=== PATIENT | male | born 1990 | race Caucasian/White ===

== ENCOUNTER 2017-02-14 19:07 | Emergency (ER) | payer MEDICAID ==
[~2017-02-14] VITALS: Ht 188 cm; Wt 149.7 kg
[~2017-02-14 19:07] MED LIST: ACYCLOVIR200 MG PO; ADIPEX-P37.5 MG PO; AMOXICILLIN/CLA1 TA1 PO; BACTRIM DS 8001 TAB PO; BACTROBAN2% TP; BENZONATATE100 MG PO; CIPRO 500MG TA500 MG PO; CORTISPORIN (GE10 M1 OT; CRESTOR10 MG PO; DARVOCET-N 1001 EACH PO; DOLOBID500 MG OR; FIORINAL #3 CA1 EACH PO; FLEXERIL10 M1 PO; FLEXERIL10 MG PO; HYDROCODONE1 TABLET PO; KEFLEX 500MG.500 MG PO; LIPITOR10 MG PO; LORTAB 5/500 501 TAB PO; MEDROL 4MG. DOSE4 MG PO; MOTRIN600 MG PO; NAPROSYN 500MG500 MG PO; NOMEDS; NOMEDS XX; PHENERGAN 25MG.25 M1 PO; PREDNISONE 10MG10 MG PO; PREDNISONE 20MG20 MG PO; SEPTRA DS 800 M1 TAB PO; TRAMADOL 50MG T50 MG PO; ULTRAM50 MG PO; VALIUM 5MG TABLE5 MG PO; VIBRA-TABS100 MG PO; VIBRAMYCIN 100100 MG PO; VOLTAREN75 MG PO; WEIGHT LOSS MED PO; ZITHROMAX Z PA250 MG PO; ZITHROMAX Z-PA250 M2 PO; ZOCOR20 MG PO; ZOFRAN ODT4 MG PO
--- NOTE | 2017-02-14 19:52 | Emergency Room Report ---
History of Present Illness Time Seen by 1915 Presenting Problem in Triage Pt arrived:Walked Presenting Problem:migraine, nausea Onset of symptoms date/time:/ or onset unknown for:MEDICAL HX UNKNOWN Treatment Prior to Arrival: [facility] DIRECT[facility] Provided by: Sepsis Risk Assessment: Temp: 98 B/P: 162/99 MAP: 120 Pulse: 91 Resp: 20 Recent fever? N Clinical Suspician of Infection? N Mental Status: 1 - Regular (Normal Baseline) Sepsis Risk:Possible Sepsis Risk Have you (or family members/close friends) recently traveled outside the [place]? N If Yes, where/when: Have you had exposure to infectious disease within the past month? TB? Other? Specify: Source patient, RN notes reviewed, family, RN/MD Exam Limitations no limitations Comment This is a 26-year-old male patient arriving to the emergency room with worse headache ever, onset 24 hours ago, associated with photophobia, sonophobia , nausea but no vomiting. Patient has a long history of migraine headaches, however he has never sought medical treatment or medical care for this complaint. Patient's parents have also the strong history of migraine headaches as well. Patient denies any recent travel or exposure to sick contacts. Patient denies any neck pain or neck stiffness. ALLERGIES Coded Allergies: No Known Allergies (02/14/17) History Medical History General CAD? No Angina: Yes CT: No Hypertension? No Hyperlipidemia? Yes CHF? No DVT? No PE? No COPD? No Asthma? No Anemia? No GERD? No Gastric ulcers? No GI Bleed? No Hernia? No Thyroid Problems? No Hypothyroidism? No CVA? No Seizures? No Diabetes? No Renal Insuffiency? No End Stage Renal Disease? No UTI? No Stones? No BPH? No GB Disease: No Nephritic Syndrome? No Asplenia? No Hepatitis? No Sickle Cell Disease? No Arthritis? No Migraines? No Cataracts? No Glaucoma? No MRSA? Yes HIV? No TB? No Anxiety? No Depression? No Cancer? No More? Yes Additional hx: MIGRAINES Immunization Hx DT/Tetanus > 10 YRS Surgical Hx Previous Surgery?Y CYST ON RIGHT NIPPLE ABCESS AT UMBILICUS ANKLE,LEFT SURGERY Family History Family Hx Hyperlipidemia Yes Social History Smoking Hx Smoker: Never Smoker Tobacco: No Alcohol Alcohol: Yes Review of Systems All Other Systems Reviewed and Negative Psychiatric/Neurological headache Physical Exam Vital Signs Vital Signs Date Time Temp Pulse Resp B/P Pulse O2 O2 Flow FiO2 Ox Delivery Rate 02/14 2023 98.0 77 14 142/95 94 02/14 2006 77 14 142/95 94 02/14 2001 20 02/14 192 20 02/14 1911 98.0 91 20 162/99 99 - WBC >12,000 or <4,000 or 10% bands? 2 or more SIRS Criteria Met? B/P:142/95 MAP:120 Creatinine >2.0? UA output<0.5ml/kg/hr for 2 hrs? Platelet count >100,000? Lactate >2.0mmol/1? INR >1.2 or PTT > than 60 sec? Evidence of Organ Dysfunction? Provider documented clinical suspician of infection? N Sepsis Criteria Count: 2 Sepsis Risk: Possible Sepsis Risk General Appearance normal appearance, WD/WN, severe distress Eye Exam - bilateral eye normal exam, bilateral eye PERRL, bilateral eye EOMI Neck normal inspection, non-tender, supple, full range of motion Respiratory Status Yes: trachea midline, chest symmetrical, non tender chest. No: respiratory distress. Lung Sounds bilateral: normal breath sounds, lungs clear. 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 No Comment Patient appears to have all the typical symptoms of a migraine headache. I reevaluation he appears medically stable, clinically improving, in minimal distress. Will discharge patient home on Maxalt, and advised him to follow-up with PCP for further treatment/workup next week. Results/Orders Current Medication Orders Sig/Elda Start time Last Medication Dose Route Stop Time Status Admin Morphine Sulfate 6 MG ONCE ONE 02/15 2000 DC /04 IV 02/14 Morphine Sulfate 0 .STK-MED ONE 02/15 2000 DC .ROUTE Morphine Sulfate 0 .STK-MED ONE 02/14 1959 DC .ROUTE Ketorolac 30 MG ONCE ONE 02/14 1930 DC 05/04 Tromethamine IV 02/14 Ondansetron HCl 4 MG ONCE ONE 02/14 1930 DC 02/14 IV 02/14 Ketorolac 0 .STK-MED ONE 02/15 1916 DC Tromethamine .ROUTE Ondansetron HCl 0 .STK-MED ONE 02/15 1916 DC .ROUTE Orders Procedure Date/time Status DIET-NOTHING BY MOUTH 02/[address] HEAD REQ 02/14 1917 Complete XRAY/CT/US XRAY/CT/US CT head CT interpretation by discussed w/radiologist CT Results no intracranial hemorrhage, per radiologist, see radiologist report Departure Departure Time of Disposition 1950 Disposition DC Home or Self Care(routine) Clinical Impression Primary Impression: Migraine headache Qualifiers: Migraine type: without aura Status migrainosus presence: without status migrainosus Intractability: not intractable Qualified Code: G43.009 - Migraine without aura, not intractable, without status migrainosus Condition STABLE Referrals KATT MCFARLAND (Family): 5 Days-Call Office Patient Instructions DI for Migraine Additional Instructions Please follow-up with Katt Mcfarland if no better within 5-7 days. Use the migraine medications (Maxalt) as discussed, for any future migraine episodes. Take one immediately after the onset of migraine, if not better, may repeat dose in 2 hours. Discharge Counseling Counseled pt/family regarding diagnosis, test results, medications/RX, home care, follow up needs Comment Please follow-up with Katt Mcfarland if no better within 5-7 days. Use the migraine medications (Maxalt) as discussed, for any future migraine episodes. Take one immediately after the onset of migraine, if not better, may repeat dose in 2 hours. Prescriptions Current Visit Scripts Rizatriptan Benzoate (Maxalt Web Content Manager) 10 MG PO PRN PRN headache #20 ODT Ref 1 ED Critical Care Critical Care No at 0107
[2017-02-14] MEDS ORDERED: MAXALT-MLT10 MG PO (20:16)
--- OUTSIDE RECORDS SUMMARY | 2017-02-14 20:19 | External Medical Summary Rpt ---
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 SEVERITY [facility]OSP[facility] - 6 6 [facility] OUTPATIEN [facility] EMERGENCY 29098 [facility] 5 CASSIUS BRU DEPARTMEN EMERGENCY T VISIT PHYS HIGH/URGE NT SEVERITY [facility]OSP[facility] - 5 5 [facility] OUTPATIEN MEDICAL T CENTE EMERGENCY 39258 [facility] 5 5 [facility]AL DEPARTMEN MEDICAL T VISIT CENTE MODERATE SEVERITY EMERGENCY 59138 [facility] 5 5 CASSIUS BRU DEPARTMEN EMERGENCY T VISIT PHYS MODERATE SEVERITY HOSPITAL [facility] - 5 5 [facility] OUTPATIEN MEDICAL T CENTE EMERGENCY 08862 [facility] 5 5 [facility]IONAL DEPARTMEN MEDICAL T VISIT CENTE HIGH/URGE NT SEVERITY OFFICE 48789 [facility] 5 5 TOM T VISIT PEDIATRIC 15 S & INTER MINUTES EMERGENCY 77733 [facility] 5 5 [facility] T VISIT MODERATE SEVERITY EMERGENCY 86607 [place] 5 5 [facility] T VISIT LOW/MODER SEVERITY HOSPITAL [place] - 5 5 [facility] OUT[facility]EN [facility] [place] - 5 5 [facility] [place] - 5 5 [facility] T OFFICE 24015 [facility] 5 5 AND T NEW 30 PEDIATRIC MINUTES S & INTER HOSPITAL [facility] - 4 4 [facility] EMERGENCY 83758 [facility] 4 4 [facility] T VISIT LOW/MODER SEVERITY EMERGENCY 74734 [place] ROA 4 4 [facility] T VISIT P MODERATE SEVERITY EMERGENCY 69606 [place] STEPHENSON 4 4 [facility] T VISIT P LOW/MODER SEVERITY EMERGENCY 92512 [place] 4 4 [facility] T [facility]ISIT LIMITED/M INOR PROB HOSPITAL [place] - 4 4 [facility] EMERGENCY 33401 [place] 4 4 [facility] T VISIT LOW/MODER SEVERITY HOSPITAL [facility] - 4 4 [facility] OUTPATIEN [facility] [place] - 4 4 [facility] EMERGENCY 98799 [place] RUTLEDGE 4 4 [facility] T VISIT P LOW/MODER SEVERITY EMERGENCY 30849 [place] 4 4 [facility] T VISIT MODERATE SEVERITY EMERGENCY 85760 [place] DARBY 4 4 [facility] T VISIT P LOW/MODER SEVERITY [facility]OSPITAL [place] Clifton 4 4 [facility] T Emergency SLY HARMON DO (ER) 4 17:31 4 18:23 [facility] EMERGENCY 43631 FAUSTINO BETSY FAUSTINO BETSY 4 4 DEPARTMEN T VISIT HIGH/URGE NT SEVERITY Emergency SLY LOPEZ MD (ER) 3 16:30 3 16:59 [facility] EMERGENCY 80483 [place] 3 3 [facility] DEPARTMEN INC T VISIT LIMITED/M INOR PROB HOSPITAL [place] - 3 3 [facility] OUTPATIEN INC T EMERGENCY 73831 JESSICA LOPEZ 3 3 [facility] T VISIT HIGH/URGE NT SEVERITY OFFICE 32801 [facility] T VISIT 25 MINUTES Emergency SLY Grajeda MD (ER) 3 19:34 3 20:56 [facility] EMERGENCY 30220 TARAS ZAMORA 3 3 DEPARTMEN T VISIT HIGH/URGE NT SEVERITY HOSPITAL [place] - 3 3 [facility] OUTPATIEN INC T Emergency SLY Barrera MD (ER) 3 22:48 3 23:37 [facility] [place] - 3 3 [facility] OUTPATIEN INC T EMERGENCY 87436 [place] 3 3 [facility] DEPARTMEN INC T VISIT LIMITED/M INOR PROB EMERGENCY 22435 SYLWIA BARRERA [address] [facility] DEPARTMEN T VISIT MODERATE SEVERITY Emergency SLY FOURNIER (ER) 3 16:06 3 16:24 [facility] EMERGENCY 64134 [place] 3 3 [facility] DEPARTMEN INC T VISIT LIMITED/M INOR PROB EMERGENCY 66633 ALFARIS ALFARIS 3 3 [facility] DEPARTMEN T VISIT MODERATE SEVERITY HOSPITAL [place] - 3 3 [facility] OUTPATIEN INC T Emergency SLY Koehler (ER) 3 15:25 3 16:59 [facility] Mukul Aiken EMERGENCY 03665 DIRK KOEHLER 3 3 [facility] DEPARTMEN T VISIT HIGH/URGE NT SEVERITY EMERGENCY 21012 [place] 3 3 [facility] DEPARTMEN INC T VISIT LOW/MODER SEVERITY [facility]OSPITAL [place] - 3 3 [facility] OUTPATIEN INC T OFFICE 01477 DESTINY DIXON OUTPATIEN 3 3 CHARLENE CHARLENE T VISIT 15 MINUTES OFFICE 68063 REED BONNIE REED BONNIE OUTPATIEN 3 3 T VISIT 15 MINUTES Emergency SLY Carson MD (ER) 3 15:56 3 16:09 [facility] EMERGENCY 94582 TIFFANY RUDD 3 3 EMERGENCY DEPARTMEN SERVICES T VISIT MODERATE SEVERITY HOSPITAL [place] - 3 3 [facility] OUTPATIEN INC T EMERGENCY 74677 [place] 3 3 [facility] DEPARTMEN INC T VISIT LIMITED/M INOR PROB Emergency SLY Barrera MD (ER) 3 18:18 3 19:21 [facility] [place] - 3 3 [facility] OUTPATIEN INC T EMERGENCY 36247 [place] 3 3 [facility] DEPARTMEN INC T VISIT LOW/MODER SEVERITY EMERGENCY 98126 SYLWIA BARRERA 3 3 [facility] DEPARTMEN T VISIT MODERATE SEVERITY HOSPITAL [place] - 3 3 [facility] OUTPATIEN INC T OFFICE 98100 REED BONNIE REED BONNIE CONSULTAT 3 3 ION NEW/ESTAB PATIENT 60 MIN OFFICE 76714 DESTINY IZAGUIRRE 3 3 CHARLENE CHARLENE T VISIT 15 MINUTES Emergency SLY [place] Carson MD (ER) 3 18:41 3 19:24 [facility] [place] - 3 3 [facility] OUTPATIEN INC T EMERGENCY 17357 [place] 3 3 [facility] DEPARTMEN INC T VISIT LOW/MODER SEVERITY OFFICE 15391 PETTEY PETTEY OUTPATIEN 3 3 JAM JAM T VISIT 15 MINUTES EMERGENCY 16015 TIFFANY RUDD 3 3 EMERGENCY DEPARTMEN SERVICES T VISIT MODERATE SEVERITY [facility] [place] - 3 3 [facility] OUTPATI[facility] INC T OFFICE 23234 PETTEY PETTEY OUTPATIEN 3 3 JAM JAM T NEW 30 MINUTES HOSPITAL [place] - 3 3 [facility] OUTPATIEN INC T OFFICE 69422 DESTINY DESTINY MARTINEZEN 3 3 CHARLENE CHARLENE T VISIT 15 MINUTES OFFICE 60120 DESTINY SANDERSEUGENIA OUTPATIEN 3 3 CHARLENE CHARLENE T NEW 30 MINUTES OFFICE 87598 SANDRA FLORES JR OUTPATIEN 2 2 KIMANI KIMANI T VISIT 10 MINUTES HOSPITAL [facility] - 2 2 [facility] OUTPATIEN INC T OFFICE 54417 SANDRA FLORES JR OUTPATIEN 2 2 KIMANI KIMANI T NEW 20 MINUTES HOSPITAL [place] - 2 2 [facility] OUTPATIEN INC T EMERGENCY 40051 TIFFANY BARRERA 2 2 EMERGENCY [facility] DEPARTMEN SERVICES T VISIT HIGH/URGE NT SEVERITY EMERGENCY 44684 [place] 2 2 [facility] DEPARTMEN INC T VISIT MODERATE SEVERITY EMERGENCY 16491 [place] 2 2 [facility] DEPARTMEN INC T VISIT MODERATE SEVERITY [facility] [place] - 2 2 [facility] OUTPATIEN INC T EMERGENCY 01566 [place] 2 2 [facility] DEPARTMEN INC T VISIT MODERATE SEVERITY [facility] [place] - 2 2 [facility] OUTPATIEN INC T HOSPITAL [place] - 2 2 [facility] OUTPATIEN INC T EMERGENCY 56732 [place] 2 2 [facility] DEPARTMEN INC T VISIT HIGH/URGE NT SEVERITY EMERGENCY 55241 TIFFANY BARRERA DEPT 2 2 EMERGENCY [facility] VISIT SERVICES HIGH SEVERITY& THREAT FUN EMERGENCY 55456 [place] 2 2 [facility] SE[facility]ITY [facility] [place] - 2 2 [facility] OUTPATIEN INC T EMERGENCY 92654 TIFFANY KOEHLER 2 2 EMERGENCY III [facility] SERVICES T VISIT HIGH/URGE NT SEVERITY [facility]OSPITAL [place] - 2 2 [facility] OUTPATIEN INC T EMERGENCY 23546 [place] 2 2 [facility] HIGH/URGE NT SEVERITY [facility] [place] - 2 2 [facility] OUTPATIEN INC T EMERGENCY 88729 [place] 2 2 [facility] VISIT MODERATE SEVERITY EMERGENCY 73512 TIFFANY RUDD 2 2 EMERGENCY DEPARTMEN SERVICES T VISIT HIGH/URGE NT SEVERITY HOSPITAL [place] - 2 2 [facility] OUTPATIEN INC T EMERGENCY 52257 [place] 2 2 [facility] DEPARTMEN INC T VISIT LOW/MODER SEVERITY [facility]PITAL [place] - 2 2 [facility] OUTPATIEN INC T EMERGENCY 16378 [place] 2 2 [facility] DEPARTMEN INC T VISIT LOW/MODER SEVERITY EMERGENCY 93960 [place] 1 1 [facility] DEPARTMEN INC T VISIT HIGH/URGE NT SEVERITY [facility]PITAL [place] - 1 1 [facility] [place] - 1 1 [facility] 93750 [place] 1 1 [facility] VISIT MODERATE SEVERITY OFFICE 67215 SHALA LAST OUTPATIEN 8 8 DON R DON R T VISIT 15 MINUTES HOSPITAL [place] - 8 8 [facility] 92940 SHALA LAST OUTPATIEN 8 8 DON R DON R T VISIT 15 MINUTES
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
--- OUTSIDE RECORDS SUMMARY | 2017-02-14 20:22 | External Medical Summary Rpt ---
Author Author , Organization [employer] Address Unknown Phone Unavailable Care Team Providers Care Bellhop Service Captain Name Role Phone ALFARIS MOH, ALFARIS Unavailable Unavailable MOH ALFARIS MOH, ALFARIS Unavailable Unavailable MOH ARNOLD CHARLENE, ARNOLD Unavailable Unavailable CHARLENE ARNOLD CHARLENE, ARNOLD Unavailable Unavailable CHARLENE [facility], Unavailable Unavailable [facility] LOPEZ BRO, LOPEZ Unavailable Unavailable BRO LOPEZ BRO, LOPEZ Unavailable Unavailable BRO BEINEKE JAIME, BEINEKE Unavailable Unavailable JAIME [facility] Unavailable Unavailable & INTER, [facility] INTER CRISPIN CARPENTER REPAIRER, CRISPIN Unavailable Unavailable CARPENTER REPAIRER [facility] Unavailable Unavailable MEDICAL CENTE, [facility] SANDRA JR KIMANI, SANDRA Unavailable Unavailable JR KIMANI SANDRA JR KIMANI, SANDRA Unavailable Unavailable JR KIMANI MARGARITO DUSTY, Unavailable Unavailable MARGARITO DUSTY MARGARITO DUSTY, Unavailable Unavailable MARGARITO DUSTY MARGARITO, DEEPIKA, Unavailable Unavailable MARGARITO, DEEPIKA DARBY MAT, DARBY Unavailable Unavailable [facility] Un[facility] Un[facility] Unavailable [facility]available [facility] Un[facility] P, [facility] SYLWIA CIARAN, SYLWIA Unavailable Unavailable CIARAN SYLWIA CIARAN, SYLWIA Unavailable Unavailable CIARAN [facility] Unavailable Unavailable INC, [facility] Un[facility]OSPITAL P, [facility] Unavailable Unavailable IMAGING [facility], [facility] MILLS TOM, MILLS Unavailable Unavailable TOM [facility]OSTEL[facility]K BR[facility], Unavailable Unavailable [facility] Un[facility], [facility] SEEMA ARIC, SEEMA Unavailable Unavailable ARIC [facility] Unavailable Unavailable SERVICES, [facility] AAMIR LAMBERT, AAMIR Unavailable Unavailable [...] Unavailable Unavailable [facility], [facility], DON R, Unavailable Unavailable LAST DON R DIRK III KIMANI, Unavailable Unavailable DIRK III KIMNAI ZAMORA, TARAS ZAMORA Unavailable Unavailable TARAS ZAMORA, TARAS ZAMORA Unavailable Unavailable Purpose Continuity of Care Document - 11-21-2007 through 2016 Problems Code Diagnosis DOS Provider Status [id number] MIGRAINE 12-06-2016 [facility] W/[facility] NOT INTRACT INC W/O STAT MIGRAIN [id number] REGULAR 11-09-2016 [facility] ASTIGMATISM BILATERAL E780 PURE 05-18-2016 [facility] [id number] MIGRAINE 05-18-2016 [facility] UNS NOT REGIONAL INTRACT W/O MEDICAL STATUS CENTE MIGRAINOSUS R51 HEADACHE 05-18-2016 [facility] R109 UNSPECIFIED 11-03-2015 [facility] ABDOMINAL RADIOLOGY PAIN GROUP P R112 NAUSEA WITH 11-03-2015 [facility] VOMITING RADIOLOGY UNSPECIFIED GROUP P R1030 LOWER 11-02-2015 [facility] ABDOMINAL N EMERGENCY PAIN PHYS UNSPECIFIED R197 DIARRHEA 11-02-2015 [facility] UNSPECIFIED N EMERGENCY PHYS J0190 ACUTE 10-07-2015 [facility] SINUSITIS N EMERGENCY UNSPECIFIED PHYS F48334 CELLULITIS 08-13-2015 [facility] OF LEFT N EMERGENCY FINGER PHYS 4558 UNSPECIFIED 04-19-2015 [facility] HEMORRHOIDS & INTER WITH OTHER COMPLICATIO N 4139 OTHER AND 03-26-2015 [facility] UNSPECIFIED [facility] ANGINA INC PECTORIS 4660 ACUTE 03-26-2015 CINDY BRONCHITIS PHYSICIANS, [facility] 24143 SHORTNESS 03-26-2015 [facility] 27148 CHEST PAIN 03-10-2015 PA MEDICAL UNSPECIFIED SERV [facility] 88821 PRECORDIAL 03-10-2015 [facility] PAIN [facility] INC V1749 FAMILY 03-10-2015 [facility] HISTORY OF [facility] OTHER INC CARDIOVASCU LAR DISEASES V7791 SCREENING 02-09-2015 [facility] FOR LIPOID [facility] DISORDERS INC V259 UNSPECIFIED 02-04-2015 [facility] CONTRACEPTI & INTER VE MANAGEMENT 5589 OTH&UNSPEC 10-02-2014 [facility] NONINFECTIO [facility] P GASTROENTER ITIS&COLITI S 6084 OTHER 10-02-2014 [facility] INFLAMMATOR [facility] Y DISORDER INC MALE GENITAL ORGANS 67634 PAIN IN 09-28-2014 [facility] JOINT, MEDICAL UPPER ARM IMAGING ASS 39937 OTHER 09-28-2014 [facility] [place]NOVIT[place] [address] HORDEOLUM 09-19-2014 [facility] EXTERNUM [facility] INC V642 SURG/OTH 09-19-2014 [facility] PROC NOT [facility] CARRIED OUT INC BECAUSE PTS DECN 2724 OTHER AND 09-17-2014 [facility] UNSPECIFIED [facility] P HYPERLIPIDE SAVANNAH 04663 MIGRAINE 09-17-2014 [facility] UNSP W/O [facility] INTRACT W/O [facility] P STATUS MIGRAINOSUS 7248 OTHER 11-28-2013 MARGARITO SYMPTOMS DUSTY REFERABLE TO BACK 8472 LUMBAR 11-28-2013 FAUSTINO BETSY SPRAIN AND STRAIN E8859 FALL FROM 11-28-2013 FAUSTINO BETSY OTHER SLIPPING TRIPPING OR STUMBLING E8889 UNSPECIFIED 11-28-2013 M[facility] FALL DUSTY 58573 GENERALIZED 10-08-2013 M[facility]O PAIN DUSTY 92748 CONTUSION 10-08-2013 [facility] OF FOREARM [facility] INC 9239 CONTUSION 10-08-2013 LOPEZ BRO OF UNSPECIFIED PART OF UPPER LIMB 6822 CELLULITIS 06-09-2013 WELLS SERA AND ABSCESS OF TRUNK V1204 PERSONAL HX 06-09-2013 [facility] OF [facility] METHICILLIN INC RESIST STAPH AUREUS 4618 OTHER ACUTE 06-06-2013 [facility] CIARAN SINUSITIS 4619 ACUTE 06-06-2013 [facility] SINUSITIS, [facility] UNSPECIFIED INC 55528 CONTUSION 05-29-2013 ALFARIS MOH OF BACK 7242 LUMBAGO 05-28-2013 MARGARITO DUSTY 03509 OBESITY, 05-12-2013 DESTINY CHANG UNSPECIFIED 84378 VARIANTS 05-12-2013 DESTINY CHANG MIGRAINE NEC INTRACT MIGRAINE W/[place] [address] OSTEOARTHRO 05-12-2013 DESTINY CHANG S INVLV MX SITES BUT NOT SPEC GEN 5718 OTHER 05-11-2013 REED BONNIE CHRONIC NONALCOHOLI C LIVER DISEASE 7905 OTHER 05-11-2013 REED BONNIE NONSPECIFIC ABNORMAL SERUM ENZYME LEVELS 34819 UNSPECIFIED 04-30-2013 [facility] ANKLE SERVICES SPRAIN AND STRAIN V5869 LONG-TERM 04-30-2013 [facility] (CURRENT) [facility] USE OF INC OTHER MEDICATIONS 14107 PAIN IN 04-25-2013 MARGARITO JOINT, DUSTY ANKLE AND FOOT 9597 INJURY 04-25-2013 MARGARITO OTHER&UNSPE DUSTY CIFIED KNEE LEG ANKLE&FOOT 7948 NONSPECIFIC 04-22-2013 [facility] ABNORMAL [facility] RESULTS INC LIVR FUNCTION STUDY 27011 PAIN IN 02-10-2013 MARGARITO JOINT, HAND DUSTY 7262 OTHER 02-10-2013 PETTEY JAM AFFECTIONS OF SHOULDER REGION NEC 8409 SPRAIN&STRA 02-10-2013 PETTEY JAM IN UNSPEC SITE SHOULDER&UP PER ARM 01050 SPRAIN AND 02-10-2013 [facility] STRAIN OF UNSPECIFIED SITE OF WRIST 41068 CONTUSION 02-10-2013 [facility] OF HAND [facility]ERGENCY SERVICES 9599 INJURY 02-10-2013 MARGARITO OTHER AND DUSTY UNSPECIFIED UNSPECIFIED SITE 2512 HYPOGLYCEMI 01-26-2013 [facility] A, [facility] UNSPECIFIED INC 51565 OTHER 01-26-2013 [facility] MALAISE AND [facility] FATIGUE INC 34608 PAIN IN 01-13-2013 [facility] JOINT, [facility] SHOULDER INC REGION 7273 OTHER 11-06-2012 DESTINY CHANG BURSITIS DISORDERS 6089 UNSPECIFIED 09-25-2012 SANDRA CARRINGTON DISORDER KIMANI OF MALE GENITAL ORGANS V720 EXAMINATION 09-11-2012 SCIFRES ANG OF EYES AND VISION 5110 PLEURISY 06-30-2012 [facility] WITHOUT EMERGENCY MENTION SERVICES EFFUS/[place] [address] UNSPECIFIED 06-23-2012 [facility] CELLULITIS [facility]ERGENCY AND SERVICES ABSCESS OF FINGER 88909 ONYCHIA AND 06-23-2012 [facility] PARONYCHIA [facility] OF FINGER INC 96424 ASTHMA, 03-28-2012 [facility] UNSPECIFIED [facility] , INC UNSPECIFIED STATUS 56839 ABDOMINAL 03-20-2012 [facility] PAIN RIGHT EMERGENCY UPPER SERVICES QUADRANT 64359 ABDOMINAL 03-20-2012 [facility] PAIN, [facility] EPIGASTRIC INC 4019 UNSPECIFIED 03-10-2012 [facility] ESSENTIAL EMERGENCY HYPERTENSIO SERVICES N 7962 ELEVATED BP 03-10-2012 [facility] READING [facility] WITHOUT DX INC HYPERTENSIO N 486 PNEUMONIA, 01-22-2012 [facility] ORGANISM EMERGENCY UNSPECIFIED SERVICES 6826 CELLULITIS 10-17-2011 [facility] AND ABSCESS [facility] OF LEG INC EXCEPT FOOT 8500 CONCUSSION 10-16-2011 [facility] WITH [place] [address] HEAD 10-16-2011 [facility] INJURY, MEDICAL UNSPECIFIED IMAGING ASS 11218 NAUSEA WITH 08-14-2011 [facility] 98720 ABDOMINAL 08-14-2011 [facility] PAIN, MEDICAL UNSPECIFIED IMAGING ASS SITE 7048 OTHER 12-12-2007 LAST, SPECIFIED DON R DISEASE OF HAIR&HAIR FOLLICLES 06237 OTHER CHEST 12-12-2007 LAST, PAIN DON R Procedures Procedure DOS Code Location Performer Comment THERAPEUT 87017 [facility] VARNER IC 7 [facility] PROPHYLAC INC INC TIC/DX INJECTION SUBQ/IM OPHTH 84660 SCIFRES SCIFRES MEDICAL 7 XM&EVAL COMPRHNSV ESTAB PT 1/> THERAPEUT 62921 [facility] ORDOÑEZ IC 6 [facility]AL REGIONAL PROPHYLAC MEDICAL MEDICAL TIC/DX CENTE CENTE INJECTION SUBQ/IM INJECTION J1885 [facility] ORDOÑEZ 6 REGIONAL REGIONAL KETOROLAC MEDICAL MEDICAL CENTE CENTE TROMETHAM INE PER 15 MG INJECTION J1885 [facility] ORDOÑEZ 6 REGIONAL REGIONAL KETOROLAC MEDICAL MEDICAL CENTE CENTE TROMETHAM INE PER 15 MG THER 02014 [facility] ORDOÑEZ PROPH/DX 6 REGIONAL REGIONAL NJX IV MEDICAL MEDICAL PUSH CENTE CENTE SINGLE/1S T SBST/DRUG THERAPEUT 03585 [facility] ORDOÑEZ IC 6 REGIONAL REGIONAL INJECTION MEDICAL MEDICAL IV PUSH CENTE CENTE EACH NEW DRUG INJECTION J2765 [facility] ORDOÑEZ 6 REGIONAL REGIONAL METOCLOPR MEDICAL MEDICAL AMIDE HCL CENTE CENTE UP TO 10 MG RADEX ABD 10769 [facility] [place] EUG COMPL 6 N AQT ABD RADIOLOGY W/S/E/D GROUP P VIEWS 1 VIEW BASIC 37974 [facility] ORDOÑEZ METABOLIC 6 REGIONAL REGIONAL PANEL MEDICAL MEDICAL CALCIUM CENTE CENTE TOTAL RADEX ABD 75066 [facility] ORDOÑEZ COMPL 6 REGIONAL REGIONAL AQT ABD MEDICAL MEDICAL W/S/E/D CENTE CENTE VIEWS 1 VIEW BLOOD 76567 [facility] ORDOÑEZ COUNT 6 REGIONAL REGIONAL COMPLETE MEDICAL MEDICAL AUTO&AUTO CENTE CENTE DIFRNTL WBC COLLECTIO 97285 [facility] ORDOÑEZ N VENOUS 6 REGIONAL REGIONAL BLOOD MEDICAL MEDICAL VENIPUNCT CHARLENE CHANG URE RADEX 89377 [facility] ORDOÑEZ HAND 5 REGIONAL REGIONAL MINIMUM 3 MEDICAL MEDICAL VIEWS CHARLENE CHANG INCISION 95143 [facility] BRU DRAINAGE EMERGENCY ABSCESS PHYS SIMPLE/SI NGLE RADIOLOGI 80652 [facility] Khalil EXAM 5 [facility] CHEST 2 INC INC VIEWS FRONTAL&L ATERAL THERAPEUT 61212 [facility] VARNER IC 5 [facility] PROPHYLAC INC INC TIC/DX INJECTION SUBQ/IM ECHO 82280 [facility] VARNER TTHRC R-T 5 [facility] 2D INC INC W/WOM-MOD E COMPL SPEC&COLR D LIPID 46558 [facility]ER PANEL 5 [facility] INC INC BLOOD 22101 [facility] COUNT 5 [facility] COMPLETE INC INC AUTO&AUTO DIFRNTL WBC COLLECTIO 76186 [facility]ARNER N VENOUS 5 [facility] BLOOD INC INC VENIPUNCT URE COMPREHEN 71130 [facility] V[facility] SIVE 5 [facility] METABOLIC INC INC PANEL ECG 05078 [facility] R[facility]INE 5 ECG PEDIATRIC PEDIATRIC W/LEAST S & INTER S & INTER 12 LDS W/I&R COMPREHEN 32848 [facility] SIVE 4 [facility] [place] [address] [facility] INFUSION 4 [facility] THERAPY/P INC INC ROPHYLAXI S /DX 1ST TO 1 HR BLOOD 07572 [facility] COUNT 4 [facility] COMPLETE INC INC AUTO&AUTO DIFRNTL WBC THERAPEUT 16086 [facility] V[facility] IC 4 [facility] INJECTION INC INC IV PUSH EACH NEW DRUG RADEX 68857 [facility] BEINEKE ELBOW 4 MEDICAL JAIME COMPLETE IMAGING MINIMUM 3 ASS VIEWS RADEX 98299 MARGAR[facility]O MARGARITO SPINE 4 DUSTY DUSTY LUMBOSACR AL 2/3 VIEWS RADEX 32609 [facility] ELBOW 3 [facility] COMPLETE INC INC MINIMUM 3 VIEWS RADEX 64502 M[facility]O MARGARITO WRIST 2 3 DUSTY DUSTY VIEWS RADEX 41783 [facility] MARGARITO ELBOW 2 3 DUSTY DUSTY VIEWS RADEX 71249 [facility] V[facility] FOREARM 2 3 [facility] VIEWS INC INC RADEX 12399 [facility] WRIST 3 [facility] COMPLETE INC INC MINIMUM 3 VIEWS INCISION 11717 WELLS SERA GRAJEDA SERA & 3 DRAINAGE ABSCESS COMPLICAT ED/MULTIP LE RADEX 84027 MARGARITO MARGARITO SPINE 3 DUSTY DUSTY LUMBOSACR AL 2/3 VIEWS RADEX 26180 [facility] SPINE 3 [facility] LUMBOSACR INC INC AL MINIMUM 4 VIEWS RADEX 02733 [facility] ANKLE 3 [facility] COMPLETE INC INC MINIMUM 3 VIEWS CERULOPLA 82819 [facility] SMIN 3 [place] [address] [facility] V[facility] IRON 3 [facility] INC INC HEPATITIS 28595 [facility] B CORE 3 [facility] [place] [address] [facility] HEPATITIS 3 [facility] B INC INC SURFACE ANTIGEN ALPHA-1-A 13451 [facility] NTITRYPSI 3 [facility] N INC INC PHENOTYPE IRON 99302 [facility] BINDING 3 [facility] CAPACITY INC INC FLUORESCE 30260 [facility] NT 3 [facility] NONNFCT INC INC AGT ANTB TITER EA ANTIBODY HEPATITIS 87680 [facility] C 3 [place] [address] [facility] ABDOMINAL 3 [facility] REAL INC INC TIME W/IMAGE DOCUMENTA TION GENERAL 47883 [facility] HEALTH 3 [facility] PANEL INC INC ANTINUCLE 79637 [facility] AR 3 [facility] ANTIBODIE INC INC S KASSY WRIST L3908 [facility] HAND 3 ORTHOSIS EXT CONTROL COCK-UP PREFAB RADEX 31330 MARGAR[facility]O PIMENTEL HAND 3 DUSTY DUSTY MINIMUM 3 [place] [address] [facility] INSULIN 3 [facility] TOTAL INC INC BILIRUBIN 88206 [facility] DIRECT 3 [facility] INC INC SEDIMENTA 59004 [facility] TION RATE 3 [facility] RBC INC INC NON-AUTOM ATED LIPID 88776 [facility] VANRER PANEL 3 [facility] INC INC HEMOGLOBI 18018 [facility] N 3 [facility] GLYCOSYLA INC INC CHIVO A1C THYROID 56233 [facility] HORM 3 [facility] UPTK/THYR INC INC OID HORMONE BINDING RATIO GENERAL 65701 [facility] HEALTH 3 [facility] [place] [address] [facility] THYROXINE 3 [facility] TOTAL INC INC RADEX 37693 [facility] SHOULDER 3 [facility] COMPLETE INC INC MINIMUM [address] [place] [address] [facility] MARGARITO SCROTUM & 2 MEDICAL DUSTY CONTENTS IMAGING ASS DETERMINA 54232 SCIFRES SCIFRES TION 2 ANG ANG REFRACTIV E STATE OPHTH 37006 SCIFRES SCIFRES MEDICAL 2 ANG ANG XM&EVAL COMPRHNSV ESTAB PT 1/> URNLS DIP 85337 SANDRA FOLRES JR 2 KIMANI KIMANI STICK/TAB LET RGNT NON-AUTO W/O MICRSCP RADIOLOGI 97080 [facility] C EXAM 2 [facility] CHEST 2 INC INC VIEWS FRONTAL&L ATERAL IAADI 40576 [facility] INFLUENZA 2 [facility] B VIRUS INC INC IAADI 88454 [facility] SHEETSON INFFLUENZ 2 [facility] A A VIRUS INC INC INCISION 04861 TIFFANY DAO & 2 EMERGENCY CIARAN DRAINAGE SERVICES ABSCESS COMPLICAT ED/MULTIP LE SUSCEPTIB 15748 [facility] LTY STDY 2 [facility] ANTIMICRB INC INC IAL MICRO/AGA R DILUTJ CUL BACT 01474 [facility] XCPT 2 [facility] URINE INC INC BLOOD/STO OL AEROBIC ISOL CUL BACT 40836 [facility] AEROBIC 2 [facility] ADDL INC INC METHS DEFINITIV E EA ISOL RADIOLOGI 04832 [facility] C EXAM 2 [facility] CHEST 2 INC INC VIEWS FRONTAL&L ATERAL PRESSURIZ 10404 [facility] VARNER ED/NONPRE 2 [facility] SSURIZED [place] [address] [facility] [facility] INFUSION 2 [facility] THERAPY/P INC INC ROPHYLAXI S /DX 1ST TO 1 HR BLOOD 22229 [facility] COUNT 2 [facility] COMPLETE INC INC AUTO&[place] [address] [facility] LIPASE 2 [facility] INC INC INJECTION J2405 [facility]ARNER 2 [facility] ONDANSETR INC INC ON HCL PER 1 MG COMPREHEN 40832 [facility] SIVE 2 [facility] [address] [facility] AMYLASE 2 [facility] INC INC INCISION 99168 TIFFANY CAVAZOS & 2 EMERGENCY III KIMANI DRAINAGE SERVICES ABSCESS COMPLICAT ED/[place] [address] [facility] VARNER INFUSION 2 [facility] THERAPY INC INC PROPHYLAX IS/[place] [address] [facility]ER INFUSION 2 [facility] THERAPY/P INC INC ROPHYLAXI S /DX 1ST TO 1 HR BLOOD 29153 [facility] COUNT 2 [facility] COMPLETE INC INC AUTO&AUTO DIFRNTL WBC RADIOLOGI 93660 [facility] C EXAM 2 [facility] CHEST 2 INC INC VIEWS FRONTAL&L ATERAL IAADI 04049 [facility]ER INFFLUENZ 2 [facility] A A VIRUS INC INC IAADI 37423 [facility] INFLUENZA 2 [place] [address] [facility] V[facility] INFUSION 2 [facility] THER INC INC PROPH ADDL SEQUENTIA L TO 1 HR COMPREHEN 62408 [facility] VARNER SIVE 2 [facility] METABOLIC INC INC PANEL THERAPEUT 67884 [facility] IC 2 [facility] PROPHYLAC INC INC TIC/DX INJECTION SUBQ/IM 3D 88522 [facility] RENDERING 2 [facility] W/INTERP INC INC & [place] [address] [facility] HEAD/BRAI 2 [facility] N [place] [address] [facility] V[facility] INFUSION 1 [facility] THERAPY/P INC INC ROPHYLAXI S /DX 1ST TO 1 HR THERAPEUT 80873 [facility] IC 1 [facility] INJECTION INC INC IV PUSH EACH NEW DRUG THER 43710 [facility] PROPH/DX 1 [facility] NJX IV INC INC PUSH SINGLE/1S T SBST/DRUG THERAPEUT 63487 [facility] IC 1 [facility] INJECTION [place] [address] [facility] ABDOMEN & 1 [facility] PELVIS INC INC W/O CONTRAST MATERIAL URNLS DIP 36771 [facility] 1 [facility] STICK/TAB INC INC LET REAGENT AUTO MICROSCOP Y BLOOD 06767 [facility] COUNT 1 [facility] COMPLETE INC INC AUTO&AUTO DIFRNTL WBC 3D 16444 [facility] RENDERING 1 [facility] INC INC W/INTERP& POSTPROC DIFF WORK STATION COMPREHEN 14496 [facility] V[facility] SIVE 1 [facility] METABOLIC INC INC PANEL RADEX 13224 NETTIE MARGARITO, UPPER GI 8 MEDICAL DEEPIKA W/WO IMAGING GLUCAGON/ ASSOCIATE DELAY S IMAGES W/KUB Encounters Encounter Start End Date Code Location Performer Type Date [facility]OSPITAL [facility] T VISIT INC [address] [address] [facility] DEPARTMEN EMERGENCY T VISIT PHYS HIGH/URGE NT SEVERITY HOSPITAL [facility] - 6 6 REGIONAL OUTPATIEN MEDICAL T CENTE EMERGENCY 38589 [facility] 6 6 REGIONAL DEPARTMEN MEDICAL T VISIT CENTE MODERATE SEVERITY EMERGENCY 13965 [facility] IS[facility] 6 6 CASSIUS JEA DEPARTMEN EMERGENCY T VISIT PHYS HIGH/URGE NT SEVERITY EMERGENCY 67695 [facility] 6 6 REGIONAL DEPARTMEN MEDICAL T VISIT CENTE MODERATE SEVERITY HOSPITAL [facility] - 6 6 REGIONAL OUTPATIEN MEDICAL T CENTE EMERGENCY 82014 [facility] 6 6 REGIONAL DEPARTMEN MEDICAL T VISIT CENTE MODERATE SEVERITY EMERGENCY 08375 [facility] BETSY 6 6 CASSIUS DEPARTMEN EMERGENCY T VISIT PHYS HIGH/URGE NT SEVERITY HOSPITAL [facility] - 6 6 [facility]AL OUTPAT[facility]EN [facility]ICAL [facility] - 5 5 REGIONAL OUTPATIEN MEDICAL T CENTE EMERGENCY 93626 [facility] 5 5 REGIONAL DEPARTMEN MEDICAL T VISIT CENTE MODERATE SEVERITY EMERGENCY 85914 [facility] 5 5 CASSIUS BRU DEPARTMEN EMERGENCY T VISIT PHYS HIGH/URGE NT SEVERITY EMERGENCY 48901 [facility] 5 5 CASSIUS BRU DEPARTMEN EMERGENCY T VISIT PHYS MODERATE SEVERITY EMERGENCY 19266 [facility] 5 5 REGIONAL DEPARTMEN MEDICAL T VISIT CENTE HIGH/URGE NT SEVERITY HOSPITAL [facility] - 5 5 REGIONAL OUTPATIEN MEDICAL T CENTE OFFICE 05916 [facility] 5 5 TOM T VISIT PEDIATRIC 15 S & INTER MINUTES EMERGENCY 19484 [facility] 5 5 [facility] T VISIT LOW/MODER SEVERITY EMERGENCY 77877 CINDY DUNHAM [facility] 5 5 [facility] T VISIT MODERATE SEVERITY HOSPITAL [facility] - 5 5 [facility] OUTPATIEN [facility] - 5 5 [facility] - 5 5 [facility] OUTPATIEN INC T OFFICE 94561 [facility] 5 5 AND T NEW 30 PEDIATRIC MINUTES S & INTER HOSPITAL [facility] 4 [facility] T EMERGENCY 93324 [place] 4 4 [facility] T VISIT LOW/MODER SEVERITY EMERGENCY 45548 [place] ROA 4 4 [facility] T VISIT P MODERATE [facility]VERITY [facility] [place] - 4 4 [facility] T EMERGENCY 50232 [place] 4 4 [facility] T [facility]ISIT LIMITED/M INOR PROB EMERGENCY 30078 [place] STEPHENSON 4 4 [facility] T VISIT P LOW/MODER SEVERITY [facility] [place] - 4 4 [facility] EMERGENCY 02946 [place] 4 4 [facility] T VISIT LOW/MODER SEVERITY EMERGENCY 33168 [place] RUTLEDGE 4 4 [facility] T VISIT P LOW/MODER SEVERITY [facility] [place] - 4 4 [facility] T EMERGENCY 87436 [place] DARBY 4 4 [facility] T VISIT P LOW/MODER SEVERITY [facility] [place] Clifton 4 4 [facility] OUTPATIEN [facility] T EMERGENCY 48426 [place] 4 4 [facility] T VISIT MODERATE SEVERITY EMERGENCY 43782 FAUSTINO BETSY FAUSTINO BETSY 4 4 DEPARTMEN T VISIT HIGH/URGE NT SEVERITY EMERGENCY 24119 [place] 3 3 [facility] T VISIT LIMITED/M INOR PROB EMERGENCY 02550 JESSICA LOPEZ 3 3 [facility] T VISIT HIGH/URGE NT SEVERITY [facility] [place] - 3 3 [facility] OUTPATIEN [facility] T OFFICE 88333 SANDRA FLORES JR OUTPATIEN 3 3 KIMANI KIMANI T VISIT 25 MINUTES [facility] [place] - 3 3 [facility] T EMERGENCY 87636 [place] 3 3 [facility] T VISIT HIGH/URGE NT SEVERITY EMERGENCY [address]39 SYLWIA DAO [address] [facility]ATE [facility]VERITY [facility] [place] - 3 3 [facility] T EMERGENCY 26984 [place] 3 3 [facility] T VISIT LIMITED/M INOR PROB EMERGENCY 54793 ALFARIS ALFARIS 3 3 [facility] T VISIT MODERATE SEVERITY [facility] [place] - 3 3 [facility] T EMERGENCY 86203 [place] 3 3 [facility] T VISIT LIMITED[facility]M INOR PROB EMERGENCY 26072 [place] 3 3 [facility] T VISIT LOW/MODER SEVERITY [facility] [place] - 3 3 [facility] T EMERGENCY 36741 DIRK CAVAZOS 3 3 III KIMANI III KMI[facility] T VISIT HIGH/URGE NT SEVERITY OFFICE 47644 DESTINY ZAYASPATIEN 3 3 CHARLENE CHARLENE T VISIT 15 MINUTES OFFICE 40394 REED BONNIE REED BONNIE OUTPATIEN 3 3 T VISIT 15 MINUTES EMERGENCY 05090 [place] 3 3 [facility] T VISIT LIMITED/M INOR PROB EMERGENCY 38683 TIFFANY RUDD 3 3 [facility] T VISIT MODERATE SEVERITY [facility] [place] - 3 3 [facility] T EMERGENCY [address]906 SY[address]IA DAO [address] [facility] DEPARTMEN T VISIT MODERATE SEVERITY [facility] [place] - 3 3 [facility] INC T EMERGENCY 40659 [place] 3 3 [facility] T VISIT LOW/MODER SEVERITY [facility] [place] [facility] [facility] T OFFICE [id number] REED BONNIE REED BONNIE CONSULTAT 3 3 ION NEW/ESTAB PATIENT 60 MIN OFFICE 88465 DESTINY IZAGUIRRE 3 3 CHARLENE CHARLENE T VISIT 15 MINUTES EMERGENCY 62577 [place] 3 3 [facility] T VISIT LOW/MODER SEVERITY [facility] [place] [facility] 3 [facility] T EMERGENCY 15395 TIFFANY RUDD 3 3 EMERGENCY DEPARTMEN SERVICES T VISIT MODERATE SEVERITY OFFICE 90485 PETTESonya PETTESonya OUTPATIEN 3 3 ALIN JAM T VISIT 15 MINUTES [facility] 3 [facility] [place] [facility] 3 [facility] T OFFICE 74703 PETTEY PETTEY OUTPATIEN 3 3 JAM JAM T NEW 30 MINUTES OFFICE 33097 DESTINY IZAGUIRRE 3 3 CHARLENE CHARLENE T VISIT 15 MINUTES OFFICE 73210 ARNOLD ARNOLD OUTPATIEN 3 3 CHARLENE CHARLENE T NEW 30 MINUTES OFFICE 76972 SANDRA LEAVITTE JR OUTPATIEN 2 2 KIMANI KIMANI T VISIT 10 MINUTES [facility] [place] T OFFICE 09047 SANDRA LEAVITTE JR OUTPATIEN 2 2 KIMANI KIMANI T NEW 20 MINUTES EMERGENCY 15816 TIFFANY DAO 2 2 EMERGENCY [facility] DEPARTMEN SERVICES T VISIT HIGH/URGE NT SEVERITY EMERGENCY 25448 [facility] [place] [facility] 2 [facility] [place] [facility] 2 2 [facility] T EMERGENCY 18912 [place] 2 2 [facility] DEPARTMEN INC T VISIT MODERATE SEVERITY EMERGENCY 87922 [place] 2 2 [facility]ATE [facility]ITY [facility] [place] [facility] 2 [facility] T EMERGENCY 51811 TIFFANY DAO DEPT 2 2 EMERGENCY [facility] VISIT SERVICES HIGH SEVERITY& THREAT FUNCJ EMERGENCY 48199 [place] [facility] H[facility]GE [facility] SE[facility]ITY [facility] [place] [facility] 2 [facility] T EMERGENCY 79176 TIFFANY CAVAZOS 2 2 [facility] HIGH/URGE NT SEVERITY EMERGENCY 57801 [place] 2 2 [facility] INC T VISIT MODERATE SEVERITY [facility] [place] [facility] 2 [facility] [place] [facility] 2 2 [facility] OUT[facility] INC T EMERGENCY 14869 [place] 2 2 [facility] T VISIT HIGH/URGE NT [facility]VERITY [facility] [place] [facility] 2 [facility] T EMERGENCY 29320 TIFFANY CRAVEN BLAIRE 2 2 EMERGENCY DEPARTMEN SERVICES T VISIT HIGH/URGE NT SEVERITY EMERGENCY 34139 [place] 2 2 [facility] T VISIT MODERATE SEVERITY [facility] [place] [facility] 2 [facility] T EMERGENCY 85671 [place] [address] [facility] LOW/MODER SEVERITY EMERGENCY 53636 [place] 2 2 [facility] INC T VISIT LOW/MODER SEVERITY [facility] [place] [facility] 2 [facility] T EMERGENCY 02379 [place] 1 1 [facility] INC T VISIT HIGH/URGE NT [facility]VERITY [facility] [place] [facility] 1 [facility] T EMERGENCY 90379 [place] [address] [facility] T VISIT MODERATE SEVERITY OFFICE 03436 [facility] OUTPATIEN 8 8 DON R DON R T VISIT 15 MINUTES [facility] 8 [facility] T OFFICE 02023 [facility] OUTPATIEN 8 8 DON R DON R T VISIT 15 MINUTES
--- OUTSIDE RECORDS SUMMARY | 2017-02-14 20:22 | External Medical Summary Rpt ---
Author Author , Organization [employer] Address Unknown Phone Unavailable Care Team Providers Care Gluing Machine Operator Electronic Name Role Phone ALFARIS MOH, ALFARIS Unavailable Unavailable MOH ALFARIS MOH, ALFARIS Unavailable Unavailable MOH ARNOLD CHARLENE, ARNOLD Unavailable Unavailable CHARLENE ARNOLD CHARLENE, ARNOLD Unavailable Unavailable CHARLENE [facility], Unavailable Unavailable [facility] LOPEZ BRO, LOPEZ Unavailable Unavailable BRO LOPEZ BRO, LOPEZ Unavailable Unavailable BRO BEINEKE JAIME, BEINEKE Unavailable Unavailable JAIME [facility] Unavailable Unavailable & INTER, [facility] CRISPIN GAME PROTECTOR, CRISPIN Unavailable Unavailable GAME PROTECTOR [facility] Unavailable Unavailable MEDICAL CENTE, [facility] SANDRA JR KIMANI, SANDRA [...] CIARAN SYLWIA CIARAN, SYLWIA Unavailable Unavailable CIARAN [facility] Unavailable Unavailable INC, [facility] Unavailable Unavailable HOSPITAL P, [facility] Unavailable Unavailable IM[facility]ING [facility], [facility] MILLS TOM, MILLS Unavailable Unavailable TOM KOSTELNIK BRU, Unavailable Unavailable [facility], [facility] SEEMA ARIC, SEEMA Unavailable Unavailable ARIC [facility] Unavailable Unavailable SERVICES, [facility] AAMIR LAMBERT, AAMIR Unavailable Unavailable PETRA OH EUG, OH EUG Unavailable Unavailable [facility], [facility]available [facility], [facility] REED BONNIE, REED BONNIE Unavailable Unavailable REED BONNIE, REED BONNIE Unavailable Unavailable PETTEY JAM, PETTEY Unavailable Unavailable JAM PETTEY JAM, PETTEY Unavailable Unavailable JAM ISMAEL JEA, ISMAEL Unavailable Unavailable JEA FAUSTINO BETSY, FAUTSINO BETSY Unavailable Unavailable FAUSTINO BETSY, FAUSTINO BETSY [...] DIRK III KIMANI, Unavailable Unavailable DIRK III KIMANI ZAMORA, TARAS ZAMORA Unavailable Unavailable TARAS ZAMORA, TARAS ZAMORA Unavailable Unavailable Purpose Continuity of Care Document - 11-21-2007 through 2016 Problems Code Diagnosis DOS Provider Status [id number] MIGRAINE 12-06-2016 [facility] NOT INTRACT INC W/O STAT MIGRAIN [id number] REGULAR 11-09-2016 SC[facility] ASTIGMATISM BILATERAL E780 PURE 05-18-2016 [facility] [id number] MIGRAINE 05-18-2016 [facility] UNS NOT REGIONAL INTRACT W/O MEDICAL STATUS CENTE MIGRAINOSUS R51 HEADACHE 05-18-2016 [facility] R109 UNSPECIFIED 11-03-2015 [facility] ABDOMINAL RADIOLOGY PAIN GROUP P R112 NAUSEA WITH 11-03-2015 [facility] VOMITING RADIOLOGY UNSPECIFIED GROUP P R1030 LOWER 11-02-2015 [facility] ABDOMINAL N EMERGENCY PAIN PHYS UNSPECIFIED R197 DIARRHEA 11-02-2015 [facility] UNSPECIFIED N EMERGENCY PHYS J0190 ACUTE 10-07-2015 [facility] SINUSITIS N EMERGENCY UNSPECIFIED PHYS P77931 CELLULITIS 08-13-2015 [facility] OF LEFT N EMERGENCY FINGER PHYS 4558 UNSPECIFIED 04-19-2015 [facility] HEMORRHOIDS & INTER WITH OTHER COMPLICATIO N 4139 OTHER AND 03-26-2015 [facility] UNSPECIFIED [facility] ANGINA INC PECTORIS 4660 ACUTE 03-26-2015 C[facility] BRONCHITIS PHYSICIANS, [facility] 93497 SHORTNESS 03-26-2015 [facility] OF BREATH MEDICAL IMAGING ASS 43098 CHEST PAIN 03-10-2015 [place] MEDICAL UNSPECIFIED SERV [facility] 04405 PRECORDIAL 03-10-2015 [facility] PAIN [facility] INC V1749 FAMILY 03-10-2015 [facility] HISTORY OF [facility] OTHER INC CARDIOVASCU LAR DISEASES V7791 SCREENING 02-09-2015 [facility] FOR LIPOID [facility] DISORDERS INC V259 UNSPECIFIED 02-04-2015 [facility] CONTRACEPTI & INTER VE MANAGEMENT 5589 OTH&UNSPEC 10-02-2014 [facility] NONINFECTIO [facility] P GASTROENTER ITIS&COLITI S 6084 OTHER 10-02-2014 [facility] INFLAMMATOR [facility] Y DISORDER INC MALE GENITAL ORGANS 24286 PAIN IN 09-28-2014 [place] JOINT, MEDICAL UPPER ARM IMAGING ASS 97532 OTHER 09-28-[address] [facility] [place] [address] HORDEOLUM 09-19-2014 [facility] EXTERNUM [facility] INC V642 SURG/OTH 09-19-2014 [facility] PROC NOT [facility] CARRIED OUT INC BECAUSE PTS DECN 2724 OTHER AND 09-17-2014 [facility] UNSPECIFIED [facility] P HYPERLIPIDE SAVANNAH 69518 MIGRAINE 09-17-2014 [facility] UNSP W/O [facility] INTRACT W/O [facility] P STATUS MIGRAINOSUS 7248 OTHER 11-28-2013 [facility] SYMPTOMS DUSTY REFERABLE TO BACK 8472 LUMBAR 11-28-2013 FAUSTINO BETSY SPRAIN AND STRAIN E8859 FALL FROM 11-28-2013 FAUSTINO BETSY OTHER SLIPPING TRIPPING OR STUMBLING E8889 UNSPECIFIED 11-28-2013 MAGRAR[facility] FALL DUSTY 82393 GENERALIZED 10-08-2013 [facility] PAIN DUSTY 22500 CONTUSION 10-08-2013 [facility] OF FOREARM [facility] INC 9239 CONTUSION 10-08-2013 LOPEZ BRO OF UNSPECIFIED PART OF UPPER LIMB 6822 CELLULITIS 06-09-2013 WELLS SERA AND ABSCESS OF TRUNK V1204 PERSONAL HX 06-09-2013 [facility] OF [facility] METHICILLIN INC RESIST STAPH AUREUS 4618 OTHER ACUTE 06-06-2013 SYLWIA CIARAN SINUSITIS 4619 ACUTE 06-06-2013 [facility] SINUSITIS, [facility] UNSPECIFIED INC 08864 CONTUSION 05-29-2013 ALFARIS MOH OF BACK 7242 LUMBAGO 05-28-2013 [facility] DUSTY 48822 OBESITY, 05-12-2013 DESTINY CHANG UNSPECIFIED 92011 VARIANTS 05-12-2013 DESTINY CHANG MIGRAINE NEC INTRACT MIGRAINE W/[place] [address] OSTEOARTHRO 05-12-2013 DESTINY CHANG S INVLV MX SITES BUT NOT SPEC GEN 5718 OTHER 05-11-2013 REED BONNIE CHRONIC NONALCOHOLI C LIVER DISEASE 7905 OTHER 05-11-2013 REED BONNIE NONSPECIFIC ABNORMAL SERUM ENZYME LEVELS 25100 UNSPECIFIED 04-30-2013 [facility] ANKLE SERVICES SPRAIN AND STRAIN V5869 LONG-TERM 04-30-2013 [facility] (CURRENT) [facility] USE OF INC OTHER MEDICATIONS 47312 PAIN IN 04-25-2013 MARGARITO JOINT, DUSTY ANKLE AND FOOT 9597 INJURY 04-25-2013 M[facility]O OTHER&UNSPE DUSTY CIFIED KNEE LEG ANKLE&FOOT 7948 NONSPECIFIC 04-22-2013 [facility] ABNORMAL [facility] RESULTS INC LIVR FUNCTION STUDY 91864 PAIN IN 02-10-2013 M[facility] JOINT, HAND DUSTY 7262 OTHER 02-10-2013 PETTEY JAM AFFECTIONS OF SHOULDER REGION NEC 8409 SPRAIN&STRA 02-10-2013 PETTEY JAM IN UNSPEC SITE SHOULDER&UP PER ARM 76711 SPRAIN AND 02-10-2013 [facility] STRAIN OF UNSPECIFIED SITE OF WRIST 62386 CONTUSION 02-10-2013 [facility] OF HAND EMERGENCY SERVICES 9599 INJURY 02-10-2013 MARGARITO OTHER AND DUSTY UNSPECIFIED UNSPECIFIED SITE 2512 HYPOGLYCEMI 01-26-2013 [facility] A, [facility] UNSPECIFIED INC 52707 OTHER 01-26-2013 [facility] MALAISE AND [facility] FATIGUE INC 22628 PAIN IN 01-13-2013 [facility] JOINT, [facility] SHOULDER INC REGION 7273 OTHER 11-06-2012 DESTINY CHANG BURSITIS DISORDERS 6089 UNSPECIFIED 09-25-2012 SANDRA CARRINGTON DISORDER KIMANI OF MALE GENITAL ORGANS V720 EXAMINATION 09-11-2012 SCIFRES ANG OF EYES AND VISION 5110 PLEURISY 06-30-2012 [facility] WITHOUT EMERGENCY MENTION SERVICES EFFUS/[place] [address] UNSPECIFIED 06-23-2012 [facility] CELLULITIS [facility]GENCY AND SERVICES ABSCESS OF FINGER 94873 ONYCHIA AND 06-23-2012 [facility] PARONYCHIA [facility] OF FINGER INC 65911 ASTHMA, 03-28-2012 [facility] UNSPECIFIED [facility] , INC UNSPECIFIED STATUS 38895 ABDOMINAL 03-20-2012 [facility] PA[facility] RIGHT EMERGENCY UPPER SERVICES QUADRANT 27484 ABDOMINAL 03-20-2012 [facility] PAIN, [facility] EPIGASTRIC INC 4019 UNSPECIFIED 03-10-2012 [facility] ESSENTIAL EMERGENCY HYPERTENSIO SERVICES N 7962 ELEVATED BP 03-10-2012 [facility] READING [facility] WITHOUT DX INC HYPERTENSIO N 486 PNEUMONIA, 01-22-2012 [facility] ORGANISM [facility]ERGENCY UNSPECIFIED SERVICES 6826 CELLULITIS 10-17-2011 [facility] AND ABSCESS [facility] OF LEG INC EXCEPT FOOT 8500 CONCUSSION 10-16-2011 [facility] WITH [place] [address] HEAD 10-16-2011 [place] INJURY, MEDICAL UNSPECIFIED IMAGING ASS 94228 NAUSEA WITH 08-14-2011 [facility] 04673 ABDOMINAL 08-14-2011 [place] PAIN, MEDICAL UNSPECIFIED IMAGING ASS SITE 7048 OTHER 12-12-2007 LAST, SPECIFIED DON R DISEASE OF HAIR&HAIR FOLLICLES 97898 OTHER CHEST 12-12-2007 LAST, PAIN DON R Procedures Procedure DOS Code Location Performer Comment THERAPEUT 88256 [facility] VARNER IC 7 [facility] PROPHYLAC INC INC TIC/DX INJECTION SUBQ/IM OPHTH 71629 SCIFRES SCIFRES MEDICAL 7 XM&EVAL COMPRHNSV ESTAB PT 1/> THERAPEUT 50210 [facility] ORDOÑEZ IC 6 REGIONAL REGIONAL PROPHYLAC MEDICAL MEDICAL TIC/DX CENTE CENTE INJECTION SUBQ/IM INJECTION J1885 [facility] ORDOÑEZ 6 REGIONAL REGIONAL KETOROLAC MEDICAL MEDICAL CENTE CENTE TROMETHAM INE PER 15 MG INJECTION J1885 [facility] ORDOÑEZ 6 REGIONAL REGIONAL KETOROLAC MEDICAL MEDICAL CENTE CENTE TROMETHAM INE PER 15 MG THER 62939 [facility] ORDOÑEZ PROPH/DX 6 REGIONAL REGIONAL NJX IV MEDICAL MEDICAL PUSH CENTE CENTE SINGLE/1S T SBST/DRUG THERAPEUT 56326 [facility] ORDOÑEZ IC 6 REGIONAL REGIONAL INJECTION MEDICAL MEDICAL IV PUSH CENTE CENTE EACH NEW DRUG INJECTION J2765 [facility] ORDOÑEZ 6 REGIONAL REGIONAL METOCLOPR MEDICAL MEDICAL AMIDE HCL CENTE CENTE UP TO 10 MG RADEX ABD 67928 FOUNDATIO [place] EUG COMPL 6 N AQT ABD RADIOLOGY W/S/E/D GROUP P VIEWS 1 VIEW BASIC 43082 [facility] ORDOÑEZ METABOLIC 6 REGIONAL REGIONAL PANEL MEDICAL MEDICAL CALCIUM CENTE CENTE TOTAL RADEX ABD 87116 [facility] ORDOÑEZ COMPL 6 REGIONAL REGIONAL AQT ABD MEDICAL MEDICAL W/S/E/D CENTE CENTE VIEWS 1 VIEW BLOOD 93502 [facility] ORDOÑEZ COUNT 6 REGIONAL REGIONAL COMPLETE MEDICAL MEDICAL AUTO&AUTO CENTE CENTE DIFRNTL WBC COLLECTIO 92262 [facility] ORDOÑEZ N VENOUS 6 REGIONAL REGIONAL BLOOD MEDICAL MEDICAL VENIPUNCT CHARLENE CHANG URE RADEX 12073 [facility] ORDOÑEZ HAND 5 REGIONAL REGIONAL MINIMUM 3 MEDICAL MEDICAL VIEWS CHARLENE CHANG INCISION 55111 [place] DISPENSARYTELNIK & 5 CASSIUS BRU DRAINAGE EMERGENCY ABSCESS PHYS SIMPLE/SI NGLE RADIOLOGI 34753 [facility] Khalil EXAM 5 [facility] CHEST 2 INC INC VIEWS FRONTAL&L ATERAL THERAPEUT 19946 [facility] VARNER IC 5 [facility] PROPHYLAC INC INC TIC/DX INJECTION SUBQ/IM ECHO 69971 [facility] VARNER TTHRC R-T 5 [facility] 2D INC INC W/WOM-MOD E COMPL SPEC&COLR D LIPID 51018 [facility]ER PANEL 5 [facility] INC INC BLOOD 36106 [facility] COUNT 5 [facility] COMPLETE INC INC AUTO&AUTO DIFRNTL WBC COLLECTIO 67793 [facility] N VENOUS 5 [facility] BLOOD INC INC VENIPUNCT URE COMPREHEN 64485 [facility] SIVE 5 [facility] METABOLIC INC INC PANEL ECG 00593 [facility] ROUTINE 5 ECG PEDIATRIC PEDIATRIC W/LEAST S & INTER S & INTER 12 LDS W/I&R COMPREHEN 09556 [facility] SIVE 4 [facility] [place] [address] [facility] INFUSION 4 [facility] THERAPY/P INC INC ROPHYLAXI S /DX 1ST TO 1 HR BLOOD 72712 [facility] COUNT 4 [facility] COMPLETE INC INC AUTO&AUTO DIFRNTL WBC THERAPEUT 65381 [facility] IC 4 [facility] INJECTION INC INC IV PUSH EACH NEW DRUG RADEX 59238 [place] BEINEKE ELBOW 4 MEDICAL JAIME COMPLETE IMAGING MINIMUM 3 ASS VIEWS RADEX 68933 M[facility] MARGARITO SPINE 4 DUSTY DUSTY LUMBOSACR AL 2/3 VIEWS RADEX 76615 [facility] ELBOW 3 [facility] COMPLETE INC INC MINIMUM 3 VIEWS RADEX 39893 [facility] MARGARITO WRIST 2 3 DUSTY DUSTY VIEWS RADEX 21269 M[facility] MARGARITO ELBOW 2 3 DUSTY DUSTY VIEWS RADEX 22104 [facility] FOREARM 2 3 [facility] VIEWS INC INC RADEX 33395 [facility] WRIST 3 [facility] COMPLETE INC INC MINIMUM 3 VIEWS INCISION 78442 WELLS SERA GRAJEDA SERA & 3 DRAINAGE ABSCESS COMPLICAT ED/MULTIP LE RADEX 19258 MARGAIRTO MARGARITO SPINE 3 DUSTY DUSTY LUMBOSACR AL 2/3 VIEWS RADEX 76175 [facility] SPINE 3 [facility] LUMBOSACR INC INC AL MINIMUM 4 VIEWS RADEX 30122 [facility] ANKLE 3 [facility] COMPLETE INC INC MINIMUM 3 VIEWS CERULOPLA 42019 [facility] SMIN 3 [place] [address] [facility] IRON 3 [facility] INC INC HEPATITIS 00033 G[facility] B CORE 3 [facility] [place] [address] [facility] HEPATITIS 3 [facility] B INC INC SURFACE ANTIGEN ALPHA-1-A 49990 [facility] NTITRYPSI 3 [facility] N INC INC PHENOTYPE IRON 56546 [facility] BINDING 3 [facility] CAPACITY INC INC FLUORESCE 39369 [facility] NT 3 [facility] NONNFCT INC INC AGT ANTB TITER EA ANTIBODY HEPATITIS 94129 [facility] C 3 [place] [address] [facility] ABDOMINAL 3 [facility] REAL INC INC TIME W/IMAGE DOCUMENTA TION GENERAL 38663 [facility] HEALTH 3 [facility] PANEL INC INC ANTINUCLE 72362 [facility] AR 3 [facility] ANTIBODIE INC INC S KASSY WRIST L3908 [facility] HAND 3 ORTHOSIS EXT CONTROL COCK-UP PREFAB RADEX 03412 MARGAR[facility]O PIMENTEL HAND 3 DUSTY DUSTY MINIMUM [address] [place] [address] [facility] INSULIN 3 [facility] TOTAL INC INC BILIRUBIN 75290 [facility] DIRECT 3 [facility] INC INC SEDIMENTA 00027 [facility] TION RATE 3 [facility] RBC INC INC NON-AUTOM ATED LIPID 40282 [facility] PANEL 3 [facility] INC INC HEMOGLOBI 45829 [facility] N 3 [facility] GLYCOSYLA INC INC CHIVO A1C THYROID 46367 [facility] HORM 3 [facility] UPTK/THYR INC INC OID HORMONE BINDING RATIO GENERAL 53208 [facility] HEALTH 3 [facility] [place] [address] [facility] THYROXINE 3 [facility] TOTAL INC INC RADEX 46442 [facility] SHOULDER 3 [facility] COMPLETE INC [place] MINIMUM [address] [place] [address] [place] MARGARITO SCROTUM & 2 MEDICAL DUSTY CONTENTS IMAGING ASS DETERMINA 64936 SCIFRES SCIFRES TION 2 ANG ANG REFRACTIV E STATE OPHTH 97125 SCIFRES SCIFRES MEDICAL 2 ANG ANG XM&EVAL COMPRHNSV ESTAB PT 1/> URNLS DIP 69438 SANDRA FLORES JR 2 KIMANI KIMANI STICK/TAB LET RGNT NON-AUTO W/O MICRSCP RADIOLOGI 38580 [facility] C EXAM 2 [facility] CHEST 2 INC INC VIEWS FRONTAL&L ATERAL IAADI 18486 [facility] INFLUENZA 2 [facility] B VIRUS INC INC IAADI 63200 [facility] SHEETSON INFFLUENZ 2 [facility] A A VIRUS INC INC INCISION 63122 TIFFANY DAO & 2 EMERGENCY CIARAN DRAINAGE SERVICES ABSCESS COMPLICAT ED/MULTIP LE SUSCEPTIB 83256 [facility] LTY STDY 2 [facility] ANTIMICRB INC INC IAL MICRO/AGA R DILUTJ CUL BACT 94156 [facility] XCPT 2 [facility] URINE INC INC BLOOD/STO OL AEROBIC ISOL CUL BACT 29361 [facility] AEROBIC 2 [facility] ADDL INC INC METHS DEFINITIV E EA ISOL RADIOLOGI 93239 [facility] C EXAM 2 [facility] CHEST 2 INC INC VIEWS FRONTAL&L ATERAL PRESSURIZ 19963 [facility] ED/NONPRE 2 [facility] SSURIZED [place] [address] [facility] [facility] INFUSION 2 [facility] THERAPY/P INC INC ROPHYLAXI S /DX 1ST TO 1 HR BLOOD 01036 [facility] COUNT 2 [facility] COMPLETE INC INC AUTO&[place] [address] [facility] LIPASE 2 [facility] INC INC INJECTION J2405 [facility]ER 2 [facility] ONDANSETR INC INC ON HCL PER 1 MG COMPREHEN 95822 [facility] SIVE 2 [facility] [address] [facility] AMYLASE 2 [facility] INC INC INCISION 14187 TIFFANY CAVAZOS & 2 EMERGENCY III KIMANI DRAINAGE SERVICES [place] [address] [facility] INFUSION 2 [facility] THERAPY INC [place] [address] [facility] INFUSION 2 [facility] THERAPY/P INC INC ROPHYLAXI S /DX 1ST TO 1 HR BLOOD 42375 [facility] COUNT 2 [facility] COMPLETE INC INC AUTO&AUTO DIFRNTL WBC RADIOLOGI 80351 [facility]ER C EXAM 2 [facility] CHEST 2 INC INC VIEWS FRONTAL&L ATERAL IAADI 79541 [facility] INFFLUENZ 2 [facility] A A VIRUS INC INC IAADI 90597 [facility] INFLUENZA 2 [place] [address] [facility] V[facility] INFUSION 2 [facility] THER INC INC PROPH ADDL SEQUENTIA L TO 1 HR COMPREHEN 29806 [facility] VARNER SIVE 2 [facility] METABOLIC INC INC PANEL THERAPEUT 57596 [facility] IC 2 [facility] PROPHYLAC INC INC TIC/DX INJECTION SUBQ/IM 3D 80237 [facility] RENDERING 2 [facility] W/INTERP INC INC & [place] [address] [facility] HEAD/BRAI 2 [facility] N [place] [address] [facility] INFUSION 1 [facility] THERAPY/P INC INC ROPHYLAXI S /DX 1ST TO 1 HR THERAPEUT 33312 [facility] IC 1 [facility] INJECTION INC INC IV PUSH EACH NEW DRUG THER 06003 [facility] PROPH/DX 1 [facility] NJX IV INC INC PUSH SINGLE/1S T SBST/DRUG THERAPEUT 76510 [facility] IC 1 [facility] INJECTION [place] [address] [facility] ABDOMEN & 1 [facility] PELVIS INC INC W/O CONTRAST MATERIAL URNLS DIP 01403 [facility] 1 [facility] STICK/TAB INC INC LET REAGENT AUTO MICROSCOP Y BLOOD 89972 [facility] COUNT 1 [facility] COMPLETE INC INC AUTO&AUTO DIFRNTL WBC 3D 01654 [facility] RENDERING 1 [facility] INC INC W/INTERP& POSTPROC DIFF WORK STATION COMPREHEN 88607 [facility] SIVE 1 [facility] METABOLIC INC INC PANEL RADEX 33810 NETTIE MARGARITO, UPPER GI 8 MEDICAL DEEPIKA W/WO IMAGING GLUCAGON/ ASSOCIATE DELAY S IMAGES W/KUB Encounters Encounter Start End Date Code Location Performer Type Date [facility]OSPITAL [facility] 7 [facility] T [facility] CASSIUS HAZ DEPARTMEN EMERGENCY T VISIT PHYS HIGH/URGE NT SEVERITY HOSPITAL [facility] - 6 6 REGIONAL OUTPATIEN MEDICAL T CENTE EMERGENCY 97799 [facility] 6 6 REGIONAL DEPARTMEN MEDICAL T VISIT CENTE MODERATE SEVERITY EMERGENCY 77188 [facility] ISMAEL 6 6 CASSIUS JEA DEPARTMEN EMERGENCY T VISIT PHYS HIGH/URGE NT SEVERITY EMERGENCY 80065 [facility] 6 6 REGIONAL DEPARTMEN MEDICAL T VISIT CENTE MODERATE SEVERITY HOSPITAL [facility] - 6 6 REGIONAL OUTPATIEN MEDICAL T CENTE EMERGENCY 74860 [facility] 6 6 REGIONAL DEPARTMEN MEDICAL T VISIT CENTE MODERATE SEVERITY EMERGENCY 90740 [facility] 6 6 CASSIUS DEPARTMEN EMERGENCY T VISIT PHYS HIGH/URGE NT SEVERITY HOSPITAL [facility] - 6 6 [facility] 5 5 REGIONAL OUTPATIEN MEDICAL T CENTE EMERGENCY 99711 [facility] 5 5 REGIONAL DEPARTMEN MEDICAL T VISIT CENTE MODERATE SEVERITY EMERGENCY 29079 [facility] 5 5 CASSIUS BRU DEPARTMEN EMERGENCY T VISIT PHYS HIGH/URGE NT SEVERITY EMERGENCY 81910 [facility] 5 5 CASSIUS BRU DEPARTMEN EMERGENCY T VISIT PHYS MODERATE SEVERITY EMERGENCY 43124 [facility] 5 5 REGIONAL DEPARTMEN MEDICAL T VISIT CENTE HIGH/URGE NT SEVERITY HOSPITAL [facility] - 5 5 REGIONAL OUTPATIEN MEDICAL T CENTE OFFICE 31836 [facility] 5 5 TOM T VISIT PEDIATRIC 15 S & INTER MINUTES EMERGENCY 92111 [facility] 5 5 [facility] T VISIT LOW/MODER SEVERITY EMERGENCY 17326 CINDY [facility] 5 5 [facility] T VISIT MODERATE SEVERITY HOSPITAL [facility] - 5 5 [facility] OUTPATIEN [facility] T HOSPITAL [facility] - 5 5 [facility] OUTPATIEN [facility] T HOSP[facility] - 5 5 [facility] OUTPATIEN INC T OFFICE 63788 [facility] AND T NEW 30 PEDIATRIC MINUTES S & INTER HOSP[facility] - 4 4 [facility] T EMERGENCY 03639 [place] 4 4 [facility] T VISIT LOW/MODER SEVERITY EMERGENCY 66783 [place] ROA 4 4 [facility] T VISIT P MODERATE SEVERITY [facility] [place] - 4 4 [facility] T EMERGENCY 59485 [place] 4 4 [facility] T VISIT LIMITED/M INOR PROB EMERGENCY 04475 [place] STEPHENSON 4 4 [facility] T VISIT P LOW/MODER SEVERITY [facility] [place] - 4 4 [facility] EMERGENCY 35568 [place] 4 4 [facility] T VISIT LOW/MODER SEVERITY EMERGENCY 91395 [place] RUTLEDGE 4 4 [facility] T VISIT P LOW/MODER SEVERITY [facility] [place] - 4 4 [facility] OUTPATIEN [facility] T EMERGENCY 77674 [place] DARBY 4 4 [facility] T VISIT P LOW/MODER SEVERITY [facility] [place] Clifton 4 4 [facility] OUTPATIEN [facility] T EMERGENCY 05438 [place] 4 4 [facility] T VISIT MODERATE SEVERITY EMERGENCY 51651 FAUSTINO BETSY FAUSTINO BETSY 4 4 DEPARTMEN T VISIT HIGH/URGE NT SEVERITY EMERGENCY 95213 [place] 3 3 [facility] T VISIT LIMITED/M INOR PROB EMERGENCY 78120 JESSICA LOPEZ 3 3 [facility] T VISIT HIGH/URGE NT SEVERITY [facility] [place] - 3 3 [facility] OUTPATIEN [facility] T OFFICE 71546 SANDRA FLORES JR OUTPATIEN 3 3 KIMANI KIMANI T VISIT 25 MINUTES [facility] [place] - 3 3 [facility] T EMERGENCY 62246 [place] 3 3 [facility] T VISIT HIGH/URGE NT SEVERITY EMERGENCY 68217 SYLWIA DAO 3 3 [facility] SE[facility] [place] - 3 3 [facility] T EMERGENCY 00122 [place] 3 3 [facility] T VISIT LIMITED/M INOR PROB EMERGENCY 07933 ALFARIS ALFARIS 3 3 [facility] T VISIT MODERATE SEVERITY [facility] [place] - 3 3 [facility] T EMERGENCY 77161 [place] 3 3 [facility] T VISIT LIMITED/M INOR PROB EMERGENCY 92554 [place] 3 3 [facility] T VISIT LOW/MODER SEVERITY [facility] [place] - 3 3 [facility] T EMERGENCY 86404 DIRK CAVAZOS 3 3 III KIMANI III KIMANI [facility] T VISIT HIGH/URGE NT SEVERITY OFFICE 25295 DESTINY ZAYASPATIEN 3 3 CHARLENE CHARLENE T VISIT 15 MINUTES OFFICE 48275 REED BONNIE REED BONNIE OUTPATIEN 3 3 T VISIT 15 MINUTES EMERGENCY 10570 [place] 3 3 [facility] DEPARTMEN INC T VISIT LIMITED/M INOR PROB EMERGENCY 83461 TIFFANY RUDD 3 3 [facility] T VISIT MODERATE SEVERITY [facility] [place] - 3 3 [facility] OUTPATIEN INC T EMERGENCY 56208 SYLWIA DAO 3 3 [facility] DEPARTMEN T VISIT MODERATE SEVERITY [facility] [place] - 3 3 [facility] OUTPATIEN INC T EMERGENCY 36863 [place] 3 3 [facility] DEPARTMEN INC T VISIT LOW/MODER SEVERITY HOSPITAL [place] - 3 3 [facility] OUTPATIEN INC T OFFICE [id number] REED BONNIE REED BONNIE CONSULTAT 3 3 ION NEW/ESTAB PATIENT 60 MIN OFFICE 72176 DESTINY IZAGUIRRE 3 3 CHARLENE CHARLENE T VISIT 15 MINUTES EMERGENCY 64411 [place] 3 3 [facility] DEPARTMEN INC T VISIT LOW/MODER SEVERITY [facility]OSPITAL [place] - 3 3 [facility] OUTPATIEN INC T EMERGENCY 57555 TIFFANY RUDD 3 3 EMERGENCY DEPARTMEN SERVICES T VISIT MODERATE SEVERITY OFFICE 68393 PETTESonya PETTESonya OUTPATIEN 3 3 ALIN JAM T VISIT 15 MINUTES HOSPITAL [place] - 3 3 [facility] OUTPATIEN INC T HOSPITAL [place] [facility] 3 3 [facility] OUTPATIEN INC T OFFICE 54009 PETTEY PETTEY OUTPATIEN 3 3 JAM JAM T NEW 30 MINUTES OFFICE 33172 DESTINY IZAGUIRRE 3 3 CHARLENE CHARLENE T VISIT 15 MINUTES OFFICE 50849 ARNOLD ARNOLD OUTPATIEN 3 3 CHARLENE CHARLENE T NEW 30 MINUTES OFFICE 64182 SANDRA LEAVITTE JR OUTPATIEN 2 2 KIMANI KIMANI T VISIT 10 MINUTES HOSPITAL [place] - 2 2 [facility] OUTPATIEN INC T OFFICE 40217 SANDRA LEAVITTE JR OUTPATIEN 2 2 KIMANI KIMANI T NEW 20 MINUTES EMERGENCY 21342 TIFFANY DAO 2 2 EMERGENCY [facility] DEPARTMEN SERVICES T VISIT HIGH/URGE NT SEVERITY EMERGENCY 88950 [facility] [facility] SE[facility] [place] - 2 2 [facility] OUTPATIEN [facility] T HOSPITAL [place] [facility] 2 2 [facility] OUTPATIEN INC T EMERGENCY 88518 [place] 2 2 [facility] DEPARTMEN INC T VISIT MODERATE SEVERITY EMERGENCY 47241 [place] 2 2 [facility] SE[facility] [place] - 2 2 [facility] OUTPATIEN [facility] T EMERGENCY 50161 TIFFANY DAO DEPT 2 2 EMERGENCY [facility] VISIT SERVICES HIGH SEVERITY& THREAT FUNCJ EMERGENCY 79281 [place] 2 2 [facility] HIGH/URGE NT SEVERITY [facility] [place] - 2 2 [facility] OUTPATIEN INC T EMERGENCY 85223 TIFFANY CAVAZOS 2 2 [facility] H[facility]URGE NT SEVERITY EMERGENCY 04583 [place] 2 2 [facility] DEPARTMEN INC T VISIT MODERATE SEVERITY [facility] [place] - 2 2 [facility]PAT[facility] T [facility]OSP[facility] [place] - 2 2 [facility] OUTPATIEN INC T EMERGENCY 33928 [place] 2 2 [facility] DEPARTMEN INC T VISIT HIGH/URGE NT SEVERITY [facility]OSPITAL [place] - 2 2 [facility] OUTPAT[facility]EN [facility] T EMERGENCY 22146 TIFFANY CRAVEN BLAIRE 2 2 EMERGENCY DEPARTMEN SERVICES T VISIT HIGH/URGE NT SEVERITY EMERGENCY 67812 [place] 2 2 [facility] DEPARTMEN INC T VISIT MODERATE SEVERITY [facility] [place] - 2 2 [facility] OUTPAT[facility]EN [facility] T EMERGENCY 95726 [place] [address] [facility] LOW/MODER SEVERITY EMERGENCY 11926 [place] 2 2 [facility] DEPARTMEN INC T VISIT LOW/MODER SEVERITY [facility]OSP[facility] [place] - 2 2 [facility] T EMERGENCY 77811 [place] 1 1 [facility] INC T VISIT HIGH/URGE NT SEVERITY HOSPITAL [place] - 1 1 [facility] OUTPATIEN [facility] T EMERGENCY 02569 [place] [address] [facility] T VISIT MODERATE SEVERITY OFFICE 06392 SHALA LAST OUTPATIEN 8 8 DON R DON R T VISIT 15 MINUTES HOSPITAL [place] - 8 8 [facility] OUTPAT[facility]EN [facility] T OFFICE 64367 SHALA LAST OUTPATIEN 8 8 DON R DON R T VISIT 15 MINUTES
[2017-02-14 20:23] VITALS: BP 142/95
--- OUTSIDE RECORDS SUMMARY | 2017-02-14 20:23 | External Medical Summary Rpt ---
Demographics Preferred Language Indian Marital Status Unknown Alevism Affiliation Unknown Race Unknown Ethnic Group Unknown Author Author , Organization [employer] Address Unknown Phone Unavailable Purpose Continuity of Care Document - through 2016 Immunization No patient found.
--- OUTSIDE RECORDS SUMMARY | 2017-02-14 20:23 | External Medical Summary Rpt ---
Author Author [employer], [employer] Organization [employer] Address Unknown Phone Unavailable Results CHLAMYDIA AND GONORRHEA TESTING Observa Value Referen Units Interpr Notes Date tion ce etation Range COLLECT NA No No No No Jul 24 OR informa informa informa informa 2011 tion in tion in tion in tion in 4:12 PM source source source source data data data data ETHNICI WHITE, No No No No Jul 24 TY NON-HIS informa informa informa informa 2011 PANIC tion in tion in tion in tion in 4:12 PM source source source source data data data data KIT 11-30-1 No No No No Jul 24 EXPIRAT 1 informa informa informa informa 2011 ION tion in tion in tion in tion in 4:12 PM DATE source source source source data data data data SYMPTOM NO No No No No Jul 24 S informa informa informa informa 2011 tion in tion in tion in tion in 4:12 PM source source source source data data data data REASON VOLUNTE No No No No Jul 24 FOR ER/MEDI informa informa informa informa 2011 REQUEST ELIZABETH tion in tion in tion in tion in 4:12 PM PROBLEM source source source source data data data data SPECIME URINE No No No No Jul 24 N informa informa informa informa 2011 SOURCE tion in tion in tion in tion in 4:12 PM source source source source data data data data PREGNAN NO No No No No Jul 24 T informa informa informa informa 2011 tion in tion in tion in tion in 4:12 PM source source source source data data data data CHART NA No No No No Jul 24 NUMBER informa informa informa informa 2011 tion in tion in tion in tion in 4:12 PM source source source source data data data data Chlamyd NEGATIV No No No NEGATIV Jul 24 ia E informa informa informa E 2011 trachom tion in tion in tion in RESULT= 4:12 PM atis source source source WITHIN rRNA data data data NORMAL [Presen ce] in LIMITSP Unspeci OSITIVE fied specime RESULT= n by Probe & ABNORMA target LEQUIVO ELIZABETH amplifi RESULT= cation method INDETER MINATEU NSATISF ACTORY RESULT= INVALID Neisser NEGATIV No No No NEGATIV Jul 11 ia E informa informa informa E 2010 gonorrh tion in tion in tion in RESULT= 4:12 PM oeae source source source WITHIN rRNA data data data NORMAL [Presen ce] in LIMITSP Unspeci OSITIVE fied specime RESULT= n by Probe & ABNORMA target LEQUIVO ELIZABETH amplifi RESULT= cation method INDETER MINATEU NSATISF ACTORY RESULT= INVALID EFFECTI VE GOSIA R 2009: THE APTIMA COMBO 2 NUCLEIC ACIDAMP LIFICAT ION ASSAY IS NOT INTENDE D FOR THE EVALUAT ION OFSUSPE CTED SEXUAL ABUSE OR FOR OTHER MEDICO- LEGAL INDICAT IONS.FA LSE POSITIV E RESULTS ARE POSSIBL E.\.br\ This report contain s patient informa tion that must be protect ed in accorda nce with the Health Ins[employer] ce Portabi lity and Account ability Act.
--- OUTSIDE RECORDS SUMMARY | 2017-02-14 20:23 | External Medical Summary Rpt ---
Demographics Preferred Language Algerian Marital Status Unknown Alevism Affiliation Unknown Race Unknown Ethnic Group Unknown Author Author , Organization [employer] Address Unknown Phone Unavailable Purpose Continuity of Care Document - through 2016 Immunization No patient found.
--- NOTE | 2017-02-14 22:17 | RADIOLOGY REPORT PS360 ---
CT HEAD WITHOUT CONTRAST CT BONE WINDOWS included ORDERING PHYSICIAN : Nael Webb MD PATIENT AGE: 26 years GENDER: Male PROCEDURE: Routine axial images head with brain & bone windows HISTORY: WORSE EVER HEADACHE. Severe headache since 5:30 Also history of migraine headaches COMPARISON: 10/16/2011 CT head without contrast FINDINGS: No acute intracranial findings. No significant change since previous studies No hemorrhage. No mass effect or mass lesion. No subdural nor extra-axial collection. Ventricles & basal cisterns appear satisfactory. Estevez and white matter patterns satisfactory. The posterior fossa appear satisfactory and unremarkable. CT Bone Windows: The skull is intact. The visualized portions of the paranasal sinuses are clear. Mastoid air cells, middle ear & IACs are unremarkable. IMPRESSION: No acute intracranial findings. . No significant change since October 2011 CT head
== END 2017-02-14 20:24 | disposition home or self-care (01) ==
LOC: ER 19:07
DX: G43.009 Migraine without aura, not intractable, without status migrainosus (principal)
CPT/HCPCS: J2405

== ENCOUNTER 2017-07-03 18:07 | Emergency (ER) | payer SELFPAY ==
[~2017-07-03] VITALS: Ht 188 cm; Wt 136.1 kg
--- NOTE | 2017-07-03 18:32 | Urgent Treatment Center Report ---
History of Present Issue Date/Time Seen by Provider 07/03/17 1831 Visit Reason Pt arrived:Walked Presenting Problem:PT STATES HE NOTICED A SPOT ON THIS PENIS Saturday AND THEN HE STARTED HAVING BURNING WITH URINATION ON SATURDAY AROUND 3PM. Location if Accident: Onset of symptoms date/time:/ or onset unknown for:MEDICAL HX UNKNOWN Have you (or family members/close friends) recently traveled outside the [place]? N If Yes, where/when: Have you had exposure to infectious disease within the past month? TB? Other? Specify: Patient state that he thinks he may have been exposed to a chancroid lesion. States that he had a friend that recently took a shower at his house that has been exposed to several STD and possibly has open lesions and on Saturday night he noticed a area on the head of his penis and he began to look on the internet as to what it could be and then he was told that it was possibly a chancroid and he needed to come and get treated ALLERGIES Coded Allergies: No Known Allergies (02/14/17) Home Medications Reported Medications No Known Home Medications History Medical History General CAD? No Angina: Yes MA: No Hypertension? No Hyperlipidemia? Yes CHF? No DVT? No PE? No COPD? No Asthma? No Anemia? No GERD? No Gastric ulcers? No GI Bleed? No Hernia? No Thyroid Problems? No Hypothyroidism? No CVA? No Seizures? No Diabetes? No Renal Insuffiency? No UTI? No Stones? No BPH? No GB Disease: No Nephritic Syndrome? No Asplenia? No Hepatitis? No Sickle Cell Disease? No Arthritis? No Migraines? Yes Cataracts? No Glaucoma? No MRSA? Yes HIV? No TB? No Anxiety? No Depression? No Cancer? No More? Yes Additional hx: MIGRAINES Immunization HX DT/Tetanus > 10 YRS Surgical Hx Previous Surgery?Y CYST ON RIGHT NIPPLE ABCESS AT UMBILICUS ANKLE,LEFT SURGERY Family History Family HX Hyperlipidemia Yes Social History Smoking Hx Smoker: Never Smoker Tobacco: No Alcohol Alcohol: Yes Review of Systems All Other Systems Reviewed and Negative Comment several small blister like lesions on head of penis with occasional burning with urination when the urine hits the areas Physical Exam Vital Signs Vital Signs Date Time Temp Pulse Resp B/P Pulse O2 O2 Flow FiO2 Ox Delivery Rate 07/03 1825 97.9 85 20 147/85 97 General Appearance normal appearance, WD/WN, no apparent distress Respiratory Status Yes: trachea midline, chest symmetrical, non tender chest. No: respiratory distress. 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 No Results/Orders Current Medication Orders Sig/Elda Start time Last Medication Dose Route Stop Time Status Admin Azithromycin 1,000 MG ONCE ONE 07/03 1915 DC 07/03 PO 07/03 Azithromycin 0 .STK-MED ONE 07/03 1911 DC PO Progress [facility] Progress Notes Comment Patient refused and waved STD testing and requested recommended treatment for chancroids Departure Departure Time of Disposition 1915 Disposition DC Home or Self Care(routine) Clinical Impression Primary Impression: Exposure to STD Condition STABLE Referrals LUISA MCFARLAND (Family) Additional Instructions NO sex until cleared by family doctor Follow up with family doctor Return if needed Discharge Counseling Counseled pt/family regarding diagnosis, medications/RX, home care, follow up needs Prescriptions Current Visit Scripts No Known Home Medications at 1921
--- NOTE | 2017-07-03 18:32 | Urgent Treatment Center Report ---
History of Present Issue Date/Time Seen by Provider 07/03/17 1831 Visit Reason Pt arrived:Walked Presenting Problem:PT STATES HE NOTICED A SPOT ON THIS PENIS Saturday AND THEN HE STARTED HAVING BURNING WITH URINATION ON SATURDAY AROUND 3PM. Location if Accident: Onset of symptoms date/time:/ or onset unknown for:MEDICAL HX UNKNOWN Have you (or family members/close friends) recently traveled outside the [place]? N If Yes, where/when: Have you had exposure to infectious disease within the past month? TB? Other? Specify: Patient state that he thinks he may have been exposed to a chancroid lesion. States that he had a friend that recently took a shower at his house that has been exposed to several STD and possibly has open lesions and on Saturday night he noticed a area on the head of his penis and he began to look on the internet as to what it could be and then he was told that it was possibly a chancroid and he needed to come and get treated ALLERGIES Coded Allergies: No Known Allergies (02/14/17) Home Medications Reported Medications No Known Home Medications History Medical History General CAD? No Angina: Yes OR: No Hypertension? No Hyperlipidemia? Yes CHF? No DVT? No PE? No COPD? No Asthma? No Anemia? No GERD? No Gastric ulcers? No GI Bleed? No Hernia? No Thyroid Problems? No Hypothyroidism? No CVA? No Seizures? No Diabetes? No Renal Insuffiency? No UTI? No Stones? No BPH? No GB Disease: No Nephritic Syndrome? No Asplenia? No Hepatitis? No Sickle Cell Disease? No Arthritis? No Migraines? Yes Cataracts? No Glaucoma? No MRSA? Yes HIV? No TB? No Anxiety? No Depression? No Cancer? No More? Yes Additional hx: MIGRAINES Immunization HX DT/Tetanus > 10 YRS Surgical Hx Previous Surgery?Y CYST ON RIGHT NIPPLE ABCESS AT UMBILICUS ANKLE,LEFT SURGERY Family History Family HX Hyperlipidemia Yes Social History Smoking Hx Smoker: Never Smoker Tobacco: No Alcohol Alcohol: Yes Review of Systems All Other Systems Reviewed and Negative Comment several small blister like lesions on head of penis with occasional burning with urination when the urine hits the areas Physical Exam Vital Signs Vital Signs Date Time Temp Pulse Resp B/P Pulse O2 O2 Flow FiO2 Ox Delivery Rate 07/03 1825 97.9 85 20 147/85 97 General Appearance normal appearance, WD/WN, no apparent distress Respiratory Status Yes: trachea midline, chest symmetrical, non tender chest. No: respiratory distress. 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 No Results/Orders Current Medication Orders Sig/Elda Start time Last Medication Dose Route Stop Time Status Admin Azithromycin 1,000 MG ONCE ONE 07/03 1915 DC 07/03 PO 07/03 Azithromycin 0 .STK-MED ONE 07/03 1911 DC PO Progress [facility] Progress Notes Comment Patient refused and waved STD testing and requested recommended treatment for chancroids Departure Departure Time of Disposition 1915 Disposition DC Home or Self Care(routine) Clinical Impression Primary Impression: Exposure to STD Condition STABLE Referrals LUISA MCFARLAND (Family) Additional Instructions NO sex until cleared by family doctor Follow up with family doctor Return if needed Discharge Counseling Counseled pt/family regarding diagnosis, medications/RX, home care, follow up needs Prescriptions Current Visit Scripts No Known Home Medications at 1921
[2017-07-03 19:21] VITALS: BP 147/85
== END 2017-07-03 19:24 | disposition home or self-care (01) ==
LOC: UTC 18:07
DX: Z20.2 Contact with and (suspected) exposure to infections with a predominantly sexual mode of transmission (principal)

== ENCOUNTER 2017-08-19 15:55 | Emergency (ER) | payer SELFPAY ==
[~2017-08-19] VITALS: Ht 188 cm; Wt 138.3 kg
[~2017-08-19 15:55] MED LIST changes: +MAXALT-MLT10 MG PO
--- OUTSIDE RECORDS SUMMARY | 2017-08-19 16:02 | External Medical Summary Rpt | CCD ---
Author Author , ELISSA Organization ELISSA Address Unknown Phone Care Team Providers Care Straight Truck Driver Name Role Phone ALFARIS MOH, ALFARIS Unavailable Unavailable MOH ARNOLD CHARLENE, ARNOLD Unavailable Unavailable CHARLENE Matthew Carson MD, Unavailable Unavailable JESSICA Miranda MD Unavailable Unavailable [facility] Unavailable Unavailable & INTER, [facility] SHAGUFTA LOPEZ MD, Unavailable Unavailable SHAGUFTA LOPEZ MD [facility] Unavailable Unavailable [facility], [facility] SANDRA JR HARMAN, SANDRA Unavailable Unavailable JR HARMAN MARGARITO DUSTY, Unavailable Unavailable MARGARITO DUSTY [facility] Unavailable [facility] Unavailable Un[facility], [facility] SYLWIA CIARAN, SYLWIA Unavailable Unavailable CIARAN [facility] Unavailable Unavailable INC, [facility] Unavailable Unavailable HOSPITAL P, [facility] Unavailable Unavailable IMAGING ASS, [facility] Latasha Hu MD, Unavailable Unavailable Latasha Hu MD [facility] Guilherme Barrera MD, Unavailable Unavailable Guilherme Barrera MD [facility] Unavailable Unavailable SERVICES, [facility], Unavailable Unavailable PLLC, [facility], [facility] REED BONNIE, REED BONNIE Unavailable Unavailable PETTEY JAM, PETTEY Unavailable Unavailable JAM FAUSTINO BETSY, FAUSTINO BETSY Unavailable Unavailable SCIFRES, SCIFRES Unavailable Unavailable SCIFRES ANG, SCIFRES Unavailable Unavailable ANG [facility] Unavailable Unavailable EMERGENCY PHYS, [facility] EDIN FAUSTINO DO, Unavailable Unavailable EDIN FAUSTINO DO OLIVER LAST R, Unavailable Unavailable OLIVER LAST R TARAS ZHAO Unavailable Unavailable Purpose Continuity of Care Document - 11-26-2007 through 2016 Problems Code Diagnosis DOS Provider Status [id number] MIGRAINE 05-12-2017 [place] W/O [facility] NOT INTRACT INC W/O STAT MIGRAIN R51 HEADACHE 02-14-2017 [facility] [id number] REGULAR 11-09-2016 [facility] ASTIGMATISM BILATERAL E780 PURE 05-18-2016 [facility] U77040 MIGRAINE 05-18-2016 [place] UNS NOT REGIONAL INTRACT W/O MEDICAL STATUS CENTE MIGRAINOSUS R109 UNSPECIFIED 11-03-2015 [facility] ABD[facility]AL [facility] PAIN GROUP P R112 NAUSEA WITH 11-03-2015 [facility] VOMITING [facility] UNSPECIFIED GROUP P R1030 LOWER 11-02-2015 [facility] ABDOMINAL N EMERGENCY PAIN PHYS UNSPECIFIED R197 DIARRHEA 11-02-2015 [facility] UNSPECIFIED N EMERGENCY PHYS J0190 ACUTE 10-07-2015 [facility] SINUSITIS N EMERGENCY UNSPECIFIED PHYS H03373 CELLULITIS 08-13-2015 [facility] OF LEFT N EMERGENCY FINGER PHYS 4558 UNSPECIFIED 04-19-2015 [facility] HEMORRHOIDS & INTER WITH OTHER COMPLICATIO N 4139 OTHER AND 03-26-2015 [place] UNSPECIFIED [facility] ANGINA INC PECTORIS 4660 ACUTE 03-26-2015 [facility] BRONCHITIS PHYSICIANS, [facility] 26932 SHORTNESS 03-26-2015 [place] [facility] 17781 CHEST PAIN 03-10-2015 [facility]PEC[facility] SERV [facility] 73120 PRECORDIAL 03-10-2015 [place] PAIN [facility] INC V1749 FAMILY 03-10-2015 [place] HISTORY OF MEM [facility]OS[facility] OTHER INC CARDIOVASCU LAR DISEASES V7791 SCREENING 02-09-2015 [facility] FOR LIPOID [facility]OS[facility] DISORDERS INC V259 UNSPECIFIED 02-04-2015 [facility] CONTRACEPTI & INTER VE MANAGEMENT 5589 OTH&UNSPEC 10-02-2014 [facility] NONINFECTIO [facility] P GASTROENTER ITIS&COLITI S 6084 OTHER 10-02-2014 [place] INFLAMMATOR [facility] Y DISORDER INC MALE GENITAL ORGANS 95118 PAIN IN 09-28-2014 [place] JOINT, MEDICAL UPPER ARM [facility] 62436 OTHER 09-28-2014 [facility] [place] [address] HORDEOLUM 09-19-2014 [place] EXTERNUM [facility] INC V642 SURG/OTH 09-19-2014 [place] PROC NOT [facility] CARRIED OUT INC BECAUSE PTS DECN 2724 OTHER AND 09-17-2014 [facility] P HYPERLIPIDE SAVANNAH 46802 MIGRAINE 09-17-2014 [place] UNSP W/O [facility] INTRACT W/O HOSPITAL P STATUS MIGRAINOSUS 7248 OTHER 11-28-2013 MARG[facility] SYMPTOMS DUSTY REFERABLE TO BACK 847.2 847.2 11-28-2013 [place] SPRAIN [facility] LUMBAR [facility] REGION 8472 LUMBAR 11-28-2013 FAUSTINO BETSY SPRAIN AND STRAIN E849.0 E849.0 11-28-2013 [place] ACCIDENT IN [facility] E885.9 E885.9 FALL 11-28-2013 [place] FROM [facility] SLIPPING, Hospital TRIPPING, OR STUMBLING NEC E8859 FALL FROM 11-28-2013 FAUSTINO BETSY OTHER SLIPPING TRIPPING OR STUMBLING E8889 UNSPECIFIED 11-28-2013 [facility] FALL DUSTY 67573 GENERALIZED 10-08-2013 [place] PAIN DUSTY 923.10 923.10 10-08-2013 [place] CONTUSION [facility] 45275 CONTUSION 10-08-2013 [facility] HOSP INC 9239 CONTUSION 10-08-2013 LOPEZ BRO OF UNSPECIFIED PART OF UPPER LIMB E880.9 E880.9 FALL 10-08-2013 [place] ON [facility] STAIR/STEP [facility] NEC 682.2 682.2 06-09-2013 [place] CELLULITIS [facility] 6822 CELLULITIS 06-09-2013 [facility] SERA AND ABSCESS OF TRUNK V12.04 V12.04 06-09-2013 [place] PERSONAL [facility] METHICILLIN RESISTANT STAPHYLOCOC CUS AUREUS V1204 PERSONAL HX 06-09-2013 [facility] METHICILLIN INC RESIST STAPH AUREUS 461.9 461.9 ACUTE 06-06-2013 [place] SINUSITIS [facility] 4618 OTHER ACUTE 06-06-2013 [place] MIC SINUSITIS 4619 ACUTE 06-06-2013 [facility] SINUSITIS, [facility] UNSPECIFIED INC 74534 CONTUSION 05-29-2013 [facility] OF BACK 7242 LUMBAGO 05-28-2013 MARGARITO DUSTY 86728 OBESITY, 05-12-2013 DESTIN[facility] CHANG UNSPECIFIED 39633 VARIANTS 05-12-2013 DESTINY CHANG MIGRAINE NEC INTRACT MIGRAINE W/[place] [address] OSTEOARTHRO 05-12-2013 DESTINY CHANG S INVLV MX SITES BUT NOT SPEC GEN 5718 OTHER 05-11-2013 REED BONNIE CHRONIC NONALCOHOLI C LIVER DISEASE 7905 OTHER 05-11-2013 REED BONNIE NONSPECIFIC ABNORMAL SERUM ENZYME LEVELS 25368 UNSPECIFIED 04-30-2013 [facility] SITE OF EMERGENCY ANKLE SERVICES SPRAIN AND STRAIN V5869 LONG-TERM 04-30-2013 [place] (CURRENT) [facility] USE OF INC OTHER MEDICATIONS 37250 PAIN IN 04-25-2013 MARG[facility] JOINT, DUSTY ANKLE AND FOOT 9597 INJURY 04-25-2013 MARGAR[facility]O OTHER&UNSPE DUSTY CIFIED KNEE LEG ANKLE&FOOT 7948 NONSPECIFIC 04-22-2013 [place] ABNORMAL [facility] RESULTS INC LIVR FUNCTION STUDY 59303 PAIN IN 02-10-2013 [place] JOINT, HAND DUSTY 7262 OTHER 02-10-2013 PETTE[facility] JAM AFFECTIONS OF SHOULDER REGION NEC 8409 SPRAIN&STRA 02-10-2013 PETTEY JAM IN UNSPEC SITE SHOULDER&UP PER ARM 29454 SPRAIN AND 02-10-2013 [facility] STRAIN OF UNSPECIFIED SITE OF WRIST 923.20 923.20 02-10-[address] [place] [address] [facility]() [facility] 97500 CONTUSION 02-10-2013 [facility] 9599 INJURY 02-10-2013 MARGARITO OTHER AND DUSTY UNSPECIFIED UNSPECIFIED SITE E917.9 E917.9 02-10-2013 [place] STRUCK BY [facility] NEC 2512 HYPOGLYCEMI 01-26-2013 [place] A, MEM [facility]OS[facility] UNSPECIFIED INC 82834 OTHER 01-26-2013 [place] [facility] FATIGUE INC 11890 PAIN IN 01-13-2013 [place] JOINT, MEM HOS[facility] SHOULDER INC REGION 7273 OTHER 11-06-2012 DESTINY CHANG BURSITIS DISORDERS 6089 UNSPECIFIED 09-25-2012 [facility]DRA [facility] DISORDER KIMANI OF MALE GENITAL ORGANS V720 EXAMINATION 09-11-2012 SC[facility] ANG OF EYES AND VISION 5110 PLEURISY 06-30-2012 [place] WITHOUT EMERGENCY MENTION SERVICES EFFUS/[place] [address] UNSPECIFIED 06-23-2012 [facility] CELLULITIS [facility]ERGENCY AND SERVICES ABSCESS OF FINGER 45206 ONYCHIA AND 06-23-2012 [place] PARONYCHIA [facility] OF FINGER INC 09408 ASTHMA, 03-28-2012 [place] UNSPECIFIED [facility] , INC UNSPECIFIED STATUS 74327 ABDOMINAL 03-20-2012 [facility] PAIN RIGHT EMERGENCY UPPER SERVICES QUADRANT 13759 ABDOMINAL 03-20-2012 [place] PAIN, MEM HOS[facility] EPIGASTRIC INC 4019 UNSPECIFIED 03-10-2012 [facility] ESSENTIAL EMERGENCY HYPERTENSIO SERVICES N 7962 ELEVATED BP 03-10-2012 [place] READING [facility] WITHOUT DX INC HYPERTENSIO N 486 PNEUMONIA, 01-22-2012 [facility] ORGANISM EMERGENCY UNSPECIFIED SERVICES 6826 CELLULITIS 10-17-2011 [place] AND ABSCESS [facility]OS[facility] OF LEG INC EXCEPT FOOT 8500 CONCUSSION 10-16-2011 [place] WITH [place] [address] HEAD 10-16-2011 [place] INJURY, MEDICAL UNSPECIFIED IMAGING ASS 55503 NAUSEA WITH 08-14-2011 [place] [facility] 57195 ABDOMINAL 08-14-2011 [place] PAIN, MEDICAL UNSPECIFIED IMAGING ASS SITE 7048 OTHER 12-12-2007 LAST, SPECIFIED DON R DISEASE OF HAIR&HAIR FOLLICLES 56261 OTHER CHEST 12-12-2007 LAST, PAIN DON R Allergies, Adverse Reactions, Alerts Type Allergy to [...] ia de te s n re d RI 33 05 06 9. 9 00 WA Ac ZA 34 -0 -0 00 00 L- ti TR 20 5- 9- 0 07 MA ve IP 09 20 20 48 RT TA 47 17 17 62 N 2 86 PH 10 AR MA MG CY OD #5 T 91 CY 51 02 0 No CL 07 -1 OB 90 5- Lo EN 64 20 ng ZA 42 14 er PA 0 IN Ac E ti 10 ve [...] 50 ti ve MG TA BL ET PA 00 08 0 No ED 05 -2 [...] t Range on URINALYSIS/COMPLETE (11-28-2013 17:45) URINE 11-28-2 YELLOW YELLOW complet COLOR 014 ed 17:45 URINE 11-28-2 CLEAR CLEAR complet APPEARA 014 ed NCE 17:45 URINE 11-28-2 NEGATIV NEG complet GLUCOSE 014 E ed - 17:45 DIPSTIC K URINE 11-28-2 NEGATIV NEG complet BILIRUB 014 E ed IN - 17:45 DIPSTIC K URINE 11-28-2 NEGATIV NEG complet KETONE 014 E mg/dL ed 17:45 URINE 11-28-2 Greater 1.005-1 complet SPECIFI 014 than .030 ed C 17:45 or GRAVITY equal to 1.030 URINE 11-28-2 NEGATIV NEG complet BLOOD 014 E ed 17:45 URINE 11-28-2 6.0 UNK 5.0-8.5 complet PH 014 ed 17:45 URINE 11-28-2 NEGATIV NEG complet PROTEIN 014 E mg/dL ed - 17:45 DIPSTIC K URINE 0.2 NEG complet UROBILI 014 E.U./dL ed NOGEN - 17:45 DIPSTIC K URINE NEGATIV NEG complet NITRATE 014 E ed - 17:45 DIPSTIC K URINE NEGATIV NEG complet LEUK 014 E ed ESTERAS 17:45 E URINE 3-5 O complet WBC 014 wbc/hpf ed 17:45 URINE OCC OCC complet SQUAMOU 014 #/hpf ed S CELLS 17:45 URINE TRACE NONE complet AMORPH 014 ed SEDIMEN [...] Procedures Procedure DOS Code Location Performer Comment OTHER 86.04 Latasha COLLINS & Taras ALLEN SUBQ I D Encounters Encounter Start End Date Code Location Performer Type Date [facility] [place] - 7 7 [facility] [place] [facility] 7 [facility] [place] [facility] 7 [facility] [place] [facility] 7 7 [facility] [place] [facility] 6 6 [facility] [place] [facility] 6 6 [facility] [place] [facility] 6 6 [facility] [place] [facility] 5 5 [facility] [place] [facility] 5 5 [facility] [place] [facility] 5 5 [facility] [place] [facility] [place] [facility] [place] [facility] 4 4 [facility] [place] [facility] 4 4 [facility] [place] [facility] 4 4 [facility] [place] [facility] 4 4 [facility] [place] [facility] 4 4 [facility] OUTPATIEN [facility] Emergency SLY HARMON DO (ER) 4 17:31 4 18:23 [facility] Emergency SLY LOPEZ MD (ER) 3 16:30 3 16:59 [facility] [place] - 3 3 [facility] OUTPATIEN [facility] Emergency SLY Hu MD (ER) 3 19:34 3 20:56 [facility] [place] - 3 3 [facility] OUTPATIEN [facility] Emergency SLY Barrera MD (ER) 3 22:48 3 23:37 [facility] [place] - 3 3 [facility] OUTPATIEN INC Emergency SLY FOURNIER (ER) 3 16:06 3 16:24 [facility] [place] - 3 3 [facility] OUTPATIEN INC Emergency SLY Koehler (ER) 3 15:25 3 16:59 [facility] [place] - 3 3 [facility] OUTPATIEN INC Emergency SLY Carson MD (ER) 3 15:56 3 16:09 [facility] [place] - 3 3 [facility] OUTPATIEN [facility] Emergency SLY Barrera MD (ER) 3 18:18 3 19:21 [facility] [place] - 3 3 [facility] [place] - 3 3 [facility]EN [facility] Emergency SLY Carson MD (ER) 3 18:41 3 19:24 [facility] [place] - 3 3 [facility] [place] [facility] 3 3 [facility] [place] - 3 3 [facility] [place] [facility] 2 2 [facility] [place] [facility] 2 2 [facility] [place] [facility] 2 2 [facility] [place] [facility] 2 2 [facility] [place] [facility] 2 2 [facility] [place] [facility] 2 2 [facility] [place] [facility] 2 2 [facility] [place] [facility] 2 2 [facility] [place] [facility] 2 2 [facility] [place] [facility] 2 2 [facility] [place] - 1 1 [facility] [place] - 1 1 [facility] [place] - 8 8 [facility]
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
--- OUTSIDE RECORDS SUMMARY | 2017-08-19 16:05 | External Medical Summary Rpt | CCD ---
Author Author , ELISSA Organization ELISSA Address Unknown Phone [email or web address] Care Team Providers Care Blast Furnace Blower Name Role Phone ALFARIS MOH, ALFARIS Unavailable Unavailable MOH ARNOLD CHARLENE, ARNOLD Unavailable Unavailable CHARLENE JESSICA CHIRINOS, JESSICA Unavailable Unavailable [facility] Unavailable Unavailable & INTER, [facility] Unavailable Unavailable MEDICAL CENTE, [facility] SANDRA JR KIMANI, SANDRA Unavailable Unavailable JR KIMANI MARGARITO DUSTY, Unavailable Unavailable MARGARITO DUSTY [facility] Unavailable Unavailable [facility] Unavailable Unavailable GROUP P, [facility] SYLWIA CIARAN, SYLWIA Unavailable Unavailable CI[facility] Unavailable Unavailable INC, [facility] Unavailable Unavailable HOSPITAL P, [facility] Unavailable Unavailable IMAGING [facility], [facility] Unavailable Unavailable [facility] Unavailable Unavailable SERVICES, [facility], Unavailable Unavailable PLLC, [facility] REED BONNIE, REED BONNIE Unavailable Unavailable PETTEY JAM, PETTEY Unavailable Unavailable JAM FAUSTINO BETSY, FAUSTINO BETSY Unavailable Unavailable SCIFRES, SCIFRES Unavailable Unavailable [facility], [facility] Unavailable [facility]available [facility] Unavailable Unavailable EMERGENCY PH[facility], [facility] OLIVER LAST, Unavailable Unavailable OLIVER LAST, TARAS ZAMORA Unavailable Unavailable Purpose Continuity of Care Document - 11-26-2007 through 2016 Problems Code Diagnosis DOS Provider Status [id number] MIGRAINE 05-12-2017 [place] [facility] NOT INTRACT INC W/O STAT MIGRAIN R51 HEADACHE 02-14-2017 [facility] [id number] REGULAR 11-09-2016 [facility] ASTIGMATISM BILATERAL E780 PURE 05-18-2016 [place] [facility] U00411 MIGRAINE 05-18-2016 [place] UNS NOT REGIONAL INTRACT W/O MEDICAL STATUS CENTE MIGRAINOSUS R109 UNSPECIFIED 11-03-2015 [facility] ABDOMINAL RADIOLOGY PAIN GROUP P R112 NAUSEA WITH 11-03-2015 [facility] VOMITING RADIOLOGY UNSPECIFIED GROUP P R1030 LOWER 11-02-2015 [facility] ABDOMINAL N EMERGENCY PAIN PHYS UNSPECIFIED R197 DIARRHEA 11-02-2015 [facility] UNSPECIFIED N EMERGENCY PHYS J0190 ACUTE 10-07-2015 [facility] SINUSITIS N EMERGENCY UNSPECIFIED PHYS W47281 CELLULITIS 08-13-2015 [facility] OF LEFT N EMERGENCY FINGER PHYS 4558 UNSPECIFIED 04-19-2015 [facility] HEMORRHOIDS & INTER WITH OTHER COMPLICATIO N 4139 OTHER AND 03-26-2015 [place] UNSPECIFIED [facility] ANGINA INC PECTORIS 4660 ACUTE 03-26-2015 [facility] BRONCHITIS PHYSICIANS, [facility] 18047 SHORTNESS 03-26-2015 [facility] 77382 CHEST PAIN 03-10-2015 [place] MEDICAL UNSPECIFIED SERV [facility] 89267 PRECORDIAL 03-10-2015 [place] PAIN [facility] INC V1749 FAMILY 03-10-2015 [place] HISTORY OF [facility] OTHER INC CARDIOVASCU LAR DISEASES V7791 SCREENING 02-09-2015 [place] FOR LIPOID [facility] DISORDERS INC V259 UNSPECIFIED 02-04-2015 [facility] CONTRACEPTI & INTER VE MANAGEMENT 5589 OTH&UNSPEC 10-02-2014 [place] NONINFECTIO [facility] P GASTROENTER ITIS&COLITI S 6084 OTHER 10-02-2014 [place] INFLAMMATOR [facility] Y DISORDER INC MALE GENITAL ORGANS 53635 PAIN IN 09-28-2014 [place] JOINT, MEDICAL UPPER ARM IMAGING ASS 33424 OTHER 09-28-2014 [facility] [place] [address] HORDEOLUM 09-19-2014 [place] EXTERNUM [facility] INC V642 SURG/OTH 09-19-2014 [place] PROC NOT [facility] CARRIED OUT INC BECAUSE PTS DECN 2724 OTHER AND 09-17-2014 [facility] P HYPERLIPIDE SAVANNAH 93915 MIGRAINE 09-17-2014 [place] UNS W/O [facility] W/O [facility] P STATUS MIGRAINOSUS 7248 OTHER 11-28-2013 [facility] SYMPTOMS DUSTY REFERABLE TO BACK 8472 LUMBAR 11-28-2013 FAUSTINO BETSY SPRAIN AND STRAIN E8859 FALL FROM 11-28-2013 FAUSTINO BETSY OTHER SLIPPING TRIPPING OR STUMBLING E8889 UNSPECIFIED 11-28-2013 [place] FALL DUSTY 46260 GENERALIZED 10-08-2013 [place] PAIN DUSTY 82895 CONTUSION 10-08-2013 [place] OF [facility] INC 9239 CONTUSION 10-08-2013 JESSICA CHIRINOS OF UNSPECIFIED PART OF UPPER LIMB 6822 CELLULITIS 06-09-2013 [facility] SERA AND ABSCESS OF TRUNK V1204 PERSONAL HX 06-09-2013 [place] OF [facility] METHICILLIN INC RESIST STAPH AUREUS 4618 OTHER ACUTE 06-06-2013 [place] CIARAN SINUSITIS 4619 ACUTE 06-06-2013 [place] SINUSITIS, [facility] UNSPECIFIED INC 14475 CONTUSION 05-29-2013 [facility] OF BACK 7242 LUMBAGO 05-28-2013 MARGARIT[facility] DUSTY 61536 OBESITY, 05-12-2013 DESTINY CHANG UNSPECIFIED 76603 VARIANTS 05-12-2013 DESTINY CHANG MIGRAINE NEC INTRACT MIGRAINE W/O SM 61649 OSTEOARTHRO 05-12-2013 DESTINY CHANG S INVLV MX SITES BUT NOT SPEC GEN 5718 OTHER 05-11-2013 REED BONNIE CHRONIC NONALCOHOLI C LIVER DISEASE 7905 OTHER 05-11-2013 REED B[facility]NIE NONSPECIFIC ABNORMAL SERUM ENZYME LEVELS 08838 UNSPECIFIED 04-30-2013 [facility] OF EMERGENCY ANKLE SERVICES SPRAIN AND STRAIN V5869 LONG-TERM 04-30-2013 [place] (CURRENT) [facility] USE OF INC OTHER MEDICATIONS 24584 PAIN IN 04-25-2013 [place] JOINT, DUSTY ANKLE AND FOOT 9597 INJURY 04-25-2013 [facility] OTHER&UNSPE DUSTY CIFIED KNEE LEG ANKLE&FOOT 7948 NONSPECIFIC 04-22-2013 [place] ABNORMAL [facility] RESULTS INC LIVR FUNCTION STUDY 22505 PAIN IN 02-10-2013 [place] JOINT, HAND DUSTY 7262 OTHER 02-10-2013 [facility] JAM AFFECTIONS OF SHOULDER REGION NEC 8409 SPRAIN&STRA 02-10-2013 [facility] JAM IN UNSPEC SITE SHOULDER&UP PER ARM 72649 SPRAIN AND 02-10-2013 [facility] STRAIN OF UNSPECIFIED SITE OF WRIST 93812 CONTUSION 02-10-2013 [facility] EMERGENCY SERVICES 9599 INJURY 02-10-2013 M[place]AR[place] OTHER AND DUSTY UNSPECIFIED UNSPECIFIED SITE 2512 HYPOGLYCEMI 01-26-2013 [place] A, [facility] UNSPECIFIED INC 41682 OTHER 01-26-2013 [place] MALAISE AND [facility] FATIGUE INC 96667 PAIN IN 01-13-2013 [place] JOINT, MEM HOS[facility] SHOULDER INC REGION 7273 OTHER 11-06-2012 DESTINY CHARLENE BURSITIS DISORDERS 6089 UNSPECIFIED 09-25-2012 SANDRA JR DISORDER KIMANI OF MALE GENITAL ORGANS V720 EXAMINATION 09-11-2012 SCIFRCHRIS ANG OF EYES AND VISION 5110 PLEURISY 06-30-2012 [facility] WITHOUT EMERGENCY MENTION SERVICES EFFUS/[place] [address] UNSPECIFIED 06-23-2012 [facility] CELLULITIS EMERGENCY AND SERVICES ABSCESS OF FINGER 05819 ONYCHIA AND 06-23-2012 [place] PARONYCHIA [facility] OF FINGER INC 82963 ASTHMA, 03-28-2012 [place] UNSPECIFIED [facility] H[facility] , INC UNSPECIFIED STATUS 22270 ABDOMINAL 03-20-2012 [place] PAIN RIGHT EMERGENCY UPPER SERVICES QUADRANT 84770 ABDOMINAL 03-20-2012 [place] PAIN, MEM HOS[facility] EPIGASTRIC INC 4019 UNSPECIFIED 03-10-2012 [facility] ESSENTIAL EMERGENCY HYPERTENSIO SERVICES N 7962 ELEVATED BP 03-10-2012 [place] READING [facility] WITHOUT DX INC HYPERTENSIO N 486 PNEUMONIA, 01-22-2012 [facility] ORGANISM EMERGENCY UNSPECIFIED SERVICES 6826 CELLULITIS 10-17-2011 [place] AND ABSCESS MEM HOS[facility] OF LEG INC EXCEPT FOOT 8500 CONCUSSION 10-16-2011 [place] WITH NO [place] [address] HEAD 10-16-2011 [facility] INJURY, MEDICAL UNSPECIFIED IMAGING ASS 31614 NAUSEA WITH 08-14-2011 [facility] 58847 ABDOMINAL 08-14-2011 [place] PAIN, MEDICAL UNSPECIFIED IMAGING ASS SITE 7048 OTHER 12-12-2007 LAST, SPECIFIED DON R DISEASE OF HAIR&HAIR FOLLICLES 31387 OTHER CHEST 12-12-2007 LAST, PAIN DON R Medications Na ND Rx Da Fi Fi [...] MA MG CY OD #5 T 91 Encounters Encounter Start End Date Code Location Performer Type Date HOSPITAL [place] [facility] 7 7 [facility] OUTPATIEN INC [facility] [place] [facility] 7 [facility] [place] [facility] 7 7 [facility] [place] [facility] 7 7 [facility] [place] [facility] [facility] 5 [facility] - 5 5 [facility] [place] [facility] 5 5 [facility] [place] [facility] 5 5 [facility] [place] [facility] 5 5 [facility] [place] [facility] 4 4 [facility] [place] [facility] 4 4 [facility] [place] [facility] 4 4 [facility] [place] [facility] 4 4 [facility] 4 [facility] 3 3 [facility] 3 3 [facility] 3 3 [facility] - 3 3 [facility] 3 3 [facility] 3 3 [facility] 3 3 [facility] - 3 3 [facility] - 2 2 [facility] 2 2 [facility] 2 [facility] 2 2 [facility] 2 2 [facility] 2 2 [facility] 2 2 [facility] 2 2 [facility] 1 1 [facility] [place] [facility] 8 [facility]
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
--- OUTSIDE RECORDS SUMMARY | 2017-08-19 16:05 | External Medical Summary Rpt | CCD ---
Author Author , ELISSA Organization ELISSA Address Unknown Phone [email or web address] Immunization Name Date Rout CVX Reac Dose Comm Prov Is Faci e tion ent ider Refu lity Give sed n Td 07-3 9 999 Hist H149 No H149 (bo 1-20 oric lt), 03 al Info adso rmat rbed ion - Sour ce Unsp ecif ied Hep 07-3 8 999 Hist H149 No H149 B, 1-20 oric ped/ 03 al adol Info rmat ion - Sour ce Unsp ecif ied Hep 07-2 8 999 Hist H149 No H149 B, 1-20 oric ped/ 00 al adol Info rmat ion - Sour ce Unsp ecif ied MMR 03-0 3 999 Hist H149 No H149 7-20 oric 00 al Info rmat ion - Sour ce Unsp ecif ied Hep 03-0 8 999 Hist H149 No H149 B, 7-20 oric ped/ 00 al adol Info rmat ion - Sour ce Unsp ecif ied
--- OUTSIDE RECORDS SUMMARY | 2017-08-19 16:05 | External Medical Summary Rpt | CCD ---
Author Author , ELISSA Organization ELISSA Address Unknown Phone [email or web address] Immunization Name Date Rout CVX Reac Dose [...]
--- OUTSIDE RECORDS SUMMARY | 2017-08-19 16:05 | External Medical Summary Rpt | CCD ---
Author Author , ELISSA Organization ELISSA Address Unknown Phone [email or web address] Care Team Providers Care Cutter Woodwind Reeds Name Role Phone ALFARIS MOH, ALFARIS Unavailable Unavailable MOH ARNOLD CHARLENE, ARNOLD Unavailable Unavailable CHARLENE JESSICA CHIRINOS, JESSICA Unavailable Unavailable [facility] Unavailable Unavailable & INTER, [facility] Unavailable Unavailable [facility], [facility] SANDRA JR KIMANI, SANDRA Unavailable Unavailable JR KIMANI MARGARITO DUSTY, Unavailable Unavailable [facility] Unavailable Unavailable [facility] Un[facility], [facility] SYLWIA CIARAN, SYLWIA Unavailable Unavailable [facility] Unavailable Unavailable INC, [facility] Unavailable Unavailable [facility]PITAL P, [facility] Unavailable Unavailable IMAGING [facility], [facility] Unavailable Unavailable [facility], [facility] Unavailable Unavailable SERVICES, [facility], Unavailable Unavailable PLL[facility], [facility] REED BONNIE, REED BONNIE Unavailable Unavailable PETTEY JAM, PETTEY Unavailable Unavailable JAM FAUSTINO BETSY, FAUSTINO BETSY Unavailable Unavailable SCIFRES, SCIFRES Unavailable Unavailable SCIFRES ANG, SCIFRES Unavailable Unavailable ANG [facility] Unavailable Unavailable EMER[facility]ENCY PHYS, [facility] OLIVER LAST, Unavailable Unavailable OLIVER LAST, TARAS ZAMORA Unavailable Unavailable Purpose Continuity of Care Document - 11-26-2007 through 2016 Problems Code Diagnosis DOS Provider Status [id number] MIGRAINE 05-12-2017 [facility] NOT INTRACT INC W/O STAT MIGRAIN R51 HEADACHE 02-14-2017 [facility] [id number] REGULAR 11-09-2016 SCIFRES ASTIGMATISM BILATERAL E780 PURE 05-18-2016 [facility] HYPERCHOLES [facility] [id number] MIGRAINE 05-18-2016 [facility] UNS NOT REGIONAL INTRACT W/O MEDICAL STATUS CENTE MIGRAINOSUS R109 UNSPECIFIED 11-03-2015 [facility] ABDOMINAL RADIOLOGY PAIN GROUP P R112 NAUSEA WITH 11-03-2015 [facility] VOMITING RADIOLOGY UNSPECIFIED GROUP P R1030 LOWER 11-02-2015 [facility] ABDOMINAL N EMERGENCY PAIN PHYS UNSPECIFIED R197 DIARRHEA 11-02-2015 [facility] UNSPECIFIED N EMERGENCY PHYS J0190 ACUTE 10-07-2015 [facility] SINUSITIS N EMERGENCY UNSPECIFIED PHYS X12231 CELLULITIS 08-13-2015 [facility] OF LEFT N EMERGENCY FINGER PHYS 4558 UNSPECIFIED 04-19-2015 [facility] HEMORRHOIDS & INTER WITH OTHER COMPLICATIO N 4139 OTHER AND 03-26-2015 [facility] UNSPECIFIED [facility] ANGINA INC PECTORIS 4660 ACUTE 03-26-2015 [facility] BRONCHITIS PHYSICIANS, [facility] 85271 SHORTNESS 03-26-2015 [facility] OF BRE[facility] 78726 CHEST PAIN 03-10-2015 [place] [facility] UNSPECIFIED SERV [facility] 42550 PRECORDIAL 03-10-2015 [facility] PAIN [facility] INC V1749 FAMILY 03-10-2015 [facility] HISTORY OF [facility] OTHER INC CARDIOVASCU LAR DISEASES V7791 SCREENING 02-09-2015 [place] FOR LIPOID [facility] DISORDERS INC V259 UNSPECIFIED 02-04-2015 [facility] CONTRACEPTI & INTER VE MANAGEMENT 5589 OTH&UNSPEC 10-02-2014 [place] NONINFECTIO [facility] P GASTROENTER ITIS&COLITI S 6084 OTHER 10-02-2014 [facility] INFLAMMATOR [facility] Y DISORDER INC MALE GENITAL ORGANS 36623 PAIN IN 09-28-2014 [place] JOINT, MEDICAL UPPER ARM IM[facility] 48462 OTHER 09-28-2014 [place] [address] HORDEOLUM 09-19-2014 [facility] EXTERNUM [facility] INC V642 SURG/OTH 09-19-2014 [facility] PROC NOT [facility] CARRIED OUT INC BECAUSE PTS DECN 2724 OTHER AND 09-17-2014 [facility] P HYPERLIPIDE SAVANNAH 54821 MIGRAINE 09-17-2014 [place] UNS W/O [facility] STATUS MIGRAINOSUS 7248 OTHER 11-28-2013 MARGARITO SYMPTOMS DUSTY REFERABLE TO BACK 8472 LUMBAR 11-28-2013 FAUSTINO BETSY SPRAIN AND STRAIN E8859 FALL FROM 11-28-2013 FAUSTINO BETSY OTHER SLIPPING TRIPPING OR STUMBLING E8889 UNSPECIFIED 11-28-2013 MARGAR[facility]O FALL DUSTY 51503 GENERALIZED 10-08-2013 [facility] PAIN DUSTY 47022 CONTUSION 10-08-2013 [facility] OF [facility]EARM [facility] INC 9239 CONTUSION 10-08-2013 JESSICA CHIRINOS OF UNSPECIFIED PART OF UPPER LIMB 6822 CELLULITIS 06-09-2013 [facility] AND ABSCESS OF TRUNK V1204 PERSONAL HX 06-09-2013 [facility] OF [facility] METHICILLIN INC RESIST STAPH AUREUS 4618 OTHER ACUTE 06-06-2013 [facility] CIARAN SINUSITIS 4619 ACUTE 06-06-2013 [facility] SINUSITIS, [facility] HOS[facility] UNSPECIFIED INC 81190 CONTUSION 05-29-2013 ALFARIS [facility] OF BACK 7242 LUMBAGO 05-28-2013 MARGARITO DUSTY 22914 OBESITY, 05-12-2013 DESTINY CHANG UNSPECIFIED 74506 VARIANTS 05-12-2013 DESTINY CHANG MIGRAINE NEC INTRACT MIGRAINE W/[place] [address] OSTEOARTHRO 05-12-2013 DESTINY CHANG S INVLV MX SITES BUT NOT SPEC GEN 5718 OTHER 05-11-2013 REED BONNIE CHRONIC NONALCOHOLI C LIVER DISEASE 7905 OTHER 05-11-2013 REED BONNIE NONSPECIFIC ABNORMAL SERUM ENZYME LEVELS 77897 UNSPECIFIED 04-30-2013 [facility] ANKLE SERVICES SPRAIN AND STRAIN V5869 LONG-TERM 04-30-2013 [facility] (CURRENT) [facility] USE OF INC OTHER MEDICATIONS 99476 PAIN IN 04-25-2013 MARGARITO JOINT, DUSTY ANKLE AND FOOT 9597 INJURY 04-25-2013 MARGARITO OTHER&UNSPE DUSTY CIFIED KNEE LEG ANKLE&FOOT 7948 NONSPECIFIC 04-22-2013 [facility] ABNORMAL [facility] RESULTS INC LIVR FUNCTION STUDY 43693 PAIN IN 02-10-2013 MARGARITO JOINT, HAND DUSTY 7262 OTHER 02-10-2013 PETTE[facility] JAM AFFECTIONS OF SHOULDER REGION NEC 8409 SPRAIN&STRA 02-10-2013 PETTEY JAM IN UNSPEC SITE SHOULDER&UP PER ARM 90279 SPRAIN AND 02-10-2013 [facility] STRAIN OF UNSPECIFIED SITE OF WRIST 36523 CONTUSION 02-10-2013 [facility] EMERGENC[facility] SERVICES 9599 INJURY 02-10-2013 MARGARITO OTHER AND DUSTY UNSPECIFIED UNSPECIFIED SITE 2512 HYPOGLYCEMI 01-26-2013 [facility] A, [facility]OS[facility] UNSPECIFIED INC 19892 OTHER 01-26-2013 [facility]AISE AND [facility] FATIGUE INC 59935 PAIN IN 01-13-2013 [facility] JOINT, [facility] SHOULDER INC REGION 7273 OTHER 11-06-2012 DESTINY CHARLENE BURSITIS DISORDERS 6089 UNSPECIFIED 09-25-2012 SANDRA JR DISORDER KIMANI OF MALE GENITAL ORGANS V720 EXAMINATION 09-11-2012 SCIFRCHRIS ANG OF EYES AND VISION 5110 PLEURISY 06-30-[address] WITHOUT EMERGENCY MENTION SERVICES EFFUS/[place] [address] UNSPECIFIED 06-23-2012 LANE CELLULITIS EMERGENCY AND SERVICES ABSCESS OF FINGER 24136 ONYCHIA AND 06-23-2012 [facility] PARONYCHIA [facility] OF FINGER INC 11278 ASTHMA, 03-28-2012 [facility] UNSPECIFIED [facility] , INC UNSPECIFIED STATUS 01270 ABDOMINAL 03-20-2012 [facility] RIGHT EMERGENCY UPPER SERVICES QUADRANT 10041 ABDOMINAL 03-20-2012 [facility] PAIN, [facility] EPIGASTRIC INC 4019 UNSPECIFIED 03-10-2012 [address] [facility] EMERGENCY HYPERTENSIO SERVICES N 7962 ELEVATED BP 03-10-2012 [facility] READING [facility] WITHOUT DX INC HYPERTENSIO N 486 PNEUMONIA, 01-22-2012 L[address] [facility] EMERGENCY UNSPECIFIED SERVICES 6826 CELLULITIS 10-17-2011 [facility] AND ABSCESS [facility]OS[facility] OF LEG INC EXCEPT FOOT 8500 CONCUSSION 10-16-2011 [facility] WITH [place] [address] HEAD 10-16-2011 [facility] INJURY, MEDICAL UNSPECIFIED IMAGING ASS 13208 NAUSEA WITH 08-14-2011 [facility] 97193 ABDOMINAL 08-14-2011 [place] PAIN, MEDICAL UNSPECIFIED IMAGING ASS SITE 7048 OTHER 12-12-2007 LAST, SPECIFIED DON R DISEASE OF HAIR&HAIR FOLLICLES 04041 OTHER CHEST 12-12-2007 LAST, PAIN DON R [...] - 7 7 MEM HOS[facility] OUTPATIEN INC [facility] - [facility] 7 [facility] OUTPATIEN [facility] [place] - [facility] 7 7 [facility] [place] - 6 6 [facility] - 6 6 [facility] [place] - 6 6 [facility] [place] - 5 5 [facility] - 5 5 [facility] 5 5 [facility] 5 5 [facility] - 5 5 [facility] - 4 4 [facility] - 4 4 [facility] 4 4 [facility] 4 4 [facility] - 4 4 [facility] - 3 3 [facility] 3 3 [facility] [place] [facility] 3 3 [facility] 3 3 [facility] [place] [facility] 3 3 [facility] [place] [facility] 3 3 [facility] 3 3 [facility] [place] [facility] 3 3 [facility] [place] [facility] 3 3 [facility] [place] [facility] 3 3 [facility] [place] [facility] 3 3 [facility] [place] [facility] 2 2 [facility] [place] [facility] 2 2 [facility] [place] [facility] 2 2 [facility] [place] [facility] 2 2 [facility] [place] [facility] 2 2 [facility] [place] [facility] 2 2 [facility] 2 2 [facility] [place] [facility] 2 2 [facility] [place] [facility] 2 2 [facility] [place] [facility] 2 2 [facility] 1 [facility] [place] - 1 1 [facility] - 8 8 [facility]
--- NOTE | 2017-08-19 16:55 | Urgent Treatment Center Report ---
History of Present Issue Date/Time Seen by Provider 08/19/17 5939 Visit Reason Pt arrived:Walked Presenting Problem:PT C/O PAIN LUNGS Location if Accident: Onset of symptoms date/time:/ or onset unknown for:MEDICAL HX UNKNOWN Have you (or family members/close friends) recently traveled outside the [place]? N If Yes, where/when: Have you had exposure to infectious disease within the past month? TB? Other? Specify: c/o guy anterior lower chest pain "like in my lungs maybe". "[place] funny" in this area last night. Slept normal. Noticed little discomfort this morning. Went to work. Seated work at [employer] requiring him to bend forward at the waist to get in /out of 500-600 cars daily. Pain worse while at work. Can't describe the pain. "not sharp and not burning". Pain positional. Worse seated and bent forward, better reclined back or standing. Worse with deep breaths or twisting from side to side. Hasn't taken or tried anything for symptoms. Denies SOA. Walked from parking spot all the way into [employer] without any unusual exertion, pain, SOA. No cough. Denies known injury. No hx DVT, no family hx of blood clots, non smoker, no recent travel. Source patient Exam Limitations no limitations ALLERGIES Coded Allergies: No Known Allergies (02/14/17) History Medical History General CAD? No Angina: Yes [place]: No Hypertension? No Hyperlipidemia? Yes CHF? No DVT? No PE? No COPD? No Asthma? No Anemia? No GERD? No Gastric ulcers? No GI Bleed? No Hernia? No Thyroid Problems? No Hypothyroidism? No CVA? No Seizures? No Diabetes? No Renal Insuffiency? No UTI? No Stones? No BPH? No GB Disease: No Nephritic Syndrome? No Asplenia? No Hepatitis? No Sickle Cell Disease? No Arthritis? No Migraines? Yes Cataracts? No Glaucoma? No MRSA? Yes HIV? No TB? No Anxiety? No Depression? No Cancer? No More? Yes Additional hx: MIGRAINES Immunization HX DT/Tetanus > 10 YRS Surgical Hx Previous Surgery?Y CYST ON RIGHT NIPPLE ABCESS AT UMBILICUS ANKLE,LEFT SURGERY Family History Family HX Hyperlipidemia Yes Social History Smoking Hx Smoker: Never Smoker Tobacco: No Alcohol Alcohol: Yes Review of Systems All Other Systems Reviewed and Negative Constitutional see HPI, denies chills, denies fever, denies malaise ENT denies: nose discharge, nose congestion, throat pain. Respiratory see HPI, denies stridor, denies wheezing Cardiovascular denies edema, denies palpitations, denies syncope Gastrointestinal denies nausea, denies vomiting Genitourinary denies: dysuria, frequency, hesitancy, hematuria. Musculoskeletal see HPI, denies back pain, denies joint pain, denies joint swelling, denies muscle stiffness, denies neck pain Skin denies change in color, denies lesions, denies lumps, denies rash Psychiatric/Neurological denies headache, denies numbness, denies tingling Physical Exam Vital Signs Vital Signs Date Time Temp Pulse Resp B/P Pulse O2 O2 Flow FiO2 Ox Delivery Rate 08/19 1815 18 08/19 1621 97.9 98 20 158/98 98 General Appearance no apparent distress, obese Ear, Nose, Throat normal ENT inspection Neck normal inspection, non-tender, supple, full range of motion Respiratory Status Yes: trachea midline, chest symmetrical, pain on inspiration. No: respiratory distress, use of accessory muscles, pain on expiration, productive cough, non productive cough. Lung Sounds anterior: lungs clear. posterior: lungs clear. bilateral: lungs clear. Cardiovascular regular rate/rhythm, no peripheral edema, no murmur Gastrointestinal normal bowel sounds, non tender, soft, no organomegaly, no pulsatile mass, no guarding, no rebound Back normal inspection, no CVA tenderness, no vertebral tenderness, gait normal Extremities normal range of motion (all extremities), normal inspection (all extremities) Strength 5 Upper Ext (L), 5 Upper Ext (R), 5 Lower Ext (L), 5 Lower Ext (R) Neurologic alert, no motor/sensory deficits, oriented x 3 Mental status normal mood/affect Skin intact, normal color, warm/dry Lymphatic no adenopathy Comments TTP bilateral lower anterior chest/flank pain that does not extend into mid chest, down into abdomen or around into back Medical Decision Making LABS/Meds/Orders Pt receiving controlled substance in ED? No Results/Orders Current Medication Orders Sig/Elda Start time Last Medication Dose Route Stop Time Status Admin Ketorolac 0 .STK-MED ONE 08/19 1813 DC Tromethamine .ROUTE Ketorolac 60 MG ONCE ONE 08/19 1800 DC 08/19 Tromethamine IM 08/19 1801 1815 Orders Procedure Date/time Status CHEST(2 VIEWS-NOT PORTABLE) 08/19 1654 Active XRAY/CT/US XRAY/CT/US XRAY chest XR interpretation by reviewed by me (w/ CHEMO Edmondson MD) Xray Results no acute findings Consult MD Physician Consult Consult/PCP CHEMO Edmondson MD Time Called 1750 Reason Pt. Condition Comments Discussed and reviewed HPI, exam, CXR. Agrees likely pleurisy vs Musculoskeletal. Does not feel pt needs further workup to r/o PE. Suggest treatment w/ toradol and possibly consider muscle relaxer. [facility] Progress Notes Date 08/19/17 Time 183 Comment pain resolved with toradol. Tried the positions that were originally causing pain, no pain. Departure Departure Time of Disposition 1835 Disposition DC Home or Self Care(routine) Clinical Impression Primary Impression: Musculoskeletal chest pain Condition STABLE Referrals NO REFERRAL (Family) For new, worsening or persistant symptoms despite POC discussed Patient Instructions DI for Muscle Strain Additional Instructions * Ibuprofen every 6 hours with meal as needed for pain/inflammation. * Remember you had a toradol shot, similiar anti-inflammatory in clinic. No ibuprofen for 6 hours. * No additional anti-inflammatories like motrin, aleve, advil with the above amount of ibuprofen. You CAN still take Tylenol every 4 hours as needed if you need something more for pain. * Ice x15-20 mins 3-4 times a day for first 48 hours after the initial injury followed by moist heat x15-20 mins 3-4 times a day to affected area * Muscle relaxer every 8 hours as needed for muscle spasms but remember, it WILL cause drowsiness. You can NOT take it and drive, operate machinary or care for small children * Keep this area active. No movement leads to more stiffness. However, take it easy too and avoid heavy lifting, pushing, pulling Discharge Counseling Counseled pt/family regarding diagnosis, test results, medications/RX, home care, follow up needs Prescriptions Current Visit Scripts Cyclobenzaprine Hcl (Flexeril) 0.5-1 TAB PO Q8HP PRN muscle spasm/pain #6 TAB will cause drowsiness at 1846
--- NOTE | 2017-08-19 16:55 | Urgent Treatment Center Report ---
History of Present Issue Date/Time Seen by Provider 08/19/17 3129 Visit Reason Pt arrived:Walked Presenting Problem:PT C/O PAIN LUNGS Location if Accident: Onset of symptoms date/time:/ or onset unknown for:MEDICAL HX UNKNOWN Have you (or family members/close friends) recently traveled outside the [place]? N If Yes, where/when: Have you had exposure to infectious disease within the past month? TB? Other? Specify: c/o guy anterior lower chest pain "like in my lungs maybe". "[place] funny" in this area last night. Slept normal. Noticed little discomfort this morning. Went to work. Seated work at [employer] requiring him to bend forward at the waist to get in /out of 500-600 cars daily. Pain worse while at work. Can't describe the pain. "not sharp and not burning". Pain positional. Worse seated and bent forward, better reclined back or standing. Worse with deep breaths or twisting from side to side. Hasn't taken or tried anything for symptoms. Denies SOA. Walked from parking spot all the way into [facility] [facility] without any unusual exertion, pain, SOA. No cough. Denies known injury. No hx DVT, no family hx of blood clots, non smoker, no recent travel. Source patient Exam Limitations no limitations ALLERGIES Coded Allergies: No Known Allergies (02/14/17) History Medical History General CAD? No Angina: Yes NC: No Hypertension? No Hyperlipidemia? Yes CHF? No DVT? No PE? No COPD? No Asthma? No Anemia? No GERD? No Gastric ulcers? No GI Bleed? No Hernia? No Thyroid Problems? No Hypothyroidism? No CVA? No Seizures? No Diabetes? No Renal Insuffiency? No UTI? No Stones? No BPH? No GB Disease: No Nephritic Syndrome? No Asplenia? No Hepatitis? No Sickle Cell Disease? No Arthritis? No Migraines? Yes Cataracts? No Glaucoma? No MRSA? Yes HIV? No TB? No Anxiety? No Depression? No Cancer? No More? Yes Additional hx: MIGRAINES Immunization HX DT/Tetanus > 10 YRS Surgical Hx Previous Surgery?Y CYST ON RIGHT NIPPLE ABCESS AT UMBILICUS ANKLE,LEFT SURGERY Family History Family HX Hyperlipidemia Yes Social History Smoking Hx Smoker: Never Smoker Tobacco: No Alcohol Alcohol: Yes Review of Systems All Other Systems Reviewed and Negative Constitutional see HPI, denies chills, denies fever, denies malaise ENT denies: nose discharge, nose congestion, throat pain. Respiratory see HPI, denies stridor, denies wheezing Cardiovascular denies edema, denies palpitations, denies syncope Gastrointestinal denies nausea, denies vomiting Genitourinary denies: dysuria, frequency, hesitancy, hematuria. Musculoskeletal see HPI, denies back pain, denies joint pain, denies joint swelling, denies muscle stiffness, denies neck pain Skin denies change in color, denies lesions, denies lumps, denies rash Psychiatric/Neurological denies headache, denies numbness, denies tingling Physical Exam Vital Signs Vital Signs Date Time Temp Pulse Resp B/P Pulse O2 O2 Flow FiO2 Ox Delivery Rate 08/19 1815 18 08/19 1621 97.9 98 20 158/98 98 General Appearance no apparent distress, obese Ear, Nose, Throat normal ENT inspection Neck normal inspection, non-tender, supple, full range of motion Respiratory Status Yes: trachea midline, chest symmetrical, pain on inspiration. No: respiratory distress, use of accessory muscles, pain on expiration, productive cough, non productive cough. Lung Sounds anterior: lungs clear. posterior: lungs clear. bilateral: lungs clear. Cardiovascular regular rate/rhythm, no peripheral edema, no murmur Gastrointestinal normal bowel sounds, non tender, soft, no organomegaly, no pulsatile mass, no guarding, no rebound Back normal inspection, no CVA tenderness, no vertebral tenderness, gait normal Extremities normal range of motion (all extremities), normal inspection (all extremities) Strength 5 Upper Ext (L), 5 Upper Ext (R), 5 Lower Ext (L), 5 Lower Ext (R) Neurologic alert, no motor/sensory deficits, oriented x 3 Mental status normal mood/affect Skin intact, normal color, warm/dry Lymphatic no adenopathy Comments TTP bilateral lower anterior chest/flank pain that does not extend into mid chest, down into abdomen or around into back Medical Decision Making LABS/Meds/Orders Pt receiving controlled substance in ED? No Results/Orders Current Medication Orders Sig/Elda Start time Last Medication Dose Route Stop Time Status Admin Ketorolac 0 .STK-MED ONE 08/19 1813 DC Tromethamine .ROUTE Ketorolac 60 MG ONCE ONE 08/19 1800 DC 08/19 Tromethamine IM 08/19 1801 1815 Orders Procedure Date/time Status CHEST(2 VIEWS-NOT PORTABLE) 08/19 1654 Active XRAY/CT/US XRAY/CT/US XRAY chest XR interpretation by reviewed by me (w/ CHEMO Edmondson MD) Xray Results no acute findings Consult MD Physician Consult Consult/PCP CHEMO Edmondson MD Time Called 1750 Reason Pt. Condition Comments Discussed and reviewed HPI, exam, CXR. Agrees likely pleurisy vs Musculoskeletal. Does not feel pt needs further workup to r/o PE. Suggest treatment w/ toradol and possibly consider muscle relaxer. Progress [facility] Progress Notes Date 08/19/17 Time 183 Comment pain resolved with toradol. Tried the positions that were originally causing pain, no pain. Departure Departure Time of Disposition 1835 Disposition DC Home or Self Care(routine) Clinical Impression Primary Impression: Musculoskeletal chest pain Condition STABLE Referrals NO REFERRAL (Family) For new, worsening or persistant symptoms despite POC discussed Patient Instructions DI for Muscle Strain Additional Instructions * Ibuprofen every 6 hours with meal as needed for pain/inflammation. * Remember you had a toradol shot, similiar anti-inflammatory in clinic. No ibuprofen for 6 hours. * No additional anti-inflammatories like motrin, aleve, advil with the above amount of ibuprofen. You CAN still take Tylenol every 4 hours as needed if you need something more for pain. * Ice x15-20 mins 3-4 times a day for first 48 hours after the initial injury followed by moist heat x15-20 mins 3-4 times a day to affected area * Muscle relaxer every 8 hours as needed for muscle spasms but remember, it WILL cause drowsiness. You can NOT take it and drive, operate machinary or care for small children * Keep this area active. No movement leads to more stiffness. However, take it easy too and avoid heavy lifting, pushing, pulling Discharge Counseling Counseled pt/family regarding diagnosis, test results, medications/RX, home care, follow up needs Prescriptions Current Visit Scripts Cyclobenzaprine Hcl (Flexeril) 0.5-1 TAB PO Q8HP PRN muscle spasm/pain #6 TAB will cause drowsiness at 1846
[2017-08-19] MEDS ORDERED: FLEXERIL10 MG PO (18:39)
[2017-08-19 18:41] VITALS: BP 158/98
--- NOTE | 2017-08-19 21:15 | RADIOLOGY REPORT PS360 ---
CHEST(2 VIEWS-NOT PORTABLE) Ordering physician: JOAO TENORIO APRN Age: 26 years Male INDICATION: chest symptomspain guy lung bases, nonsmoker, worse w/ deep breath mvmt PROCEDURE: CHEST(2 VIEWS-NOT PORTABLE) FINDINGS: 03/26/2015 3 view CXR. Stable chest with nothing definitely acute Lungs well expanded and clear. No significant interval change. No pneumothorax. No pleural effusion. Heart normal size. Normal pulmonary vascularity. Hilar and mediastinal structures appear satisfactory. Chest wall unremarkable. T-spine intact and unchanged.. Moderate gas is seen within splenic flexure just beneath the left hemidiaphragm IMPRESSION ----- Stable chest with nothing definitely acute. Lungs clear
== END 2017-08-19 18:43 | disposition home or self-care (01) ==
LOC: UTC 15:55
DX: R07.89 Other chest pain (principal); I20.8 Other forms of angina pectoris

== ENCOUNTER 2017-08-23 14:18 | Emergency (ER) | payer SELFPAY ==
[~2017-08-23] VITALS: Ht 188 cm; Wt 138.3 kg
--- OUTSIDE RECORDS SUMMARY | 2017-08-23 14:24 | External Medical Summary Rpt | CCD ---
Author Author Conduent Organization [employer]du[employer] Address Unknown Phone Unavailable Purpose Continuity of Care Document - through 2016
--- OUTSIDE RECORDS SUMMARY | 2017-08-23 14:24 | External Medical Summary Rpt | CCD ---
Author Author , ELISSA Organization ELISSA Address Unknown Phone [email or web address] Immunization Name Date Rout CVX Reac Dose Comm Prov Is Faci e tion ent ider Refu lity Give sed n Hep 07-3 8 999 Hist H149 No H149 B, 1-20 oric ped/ 03 al adol Info rmat ion - Sour ce Unsp ecif ied Td 07-3 9 999 Hist H149 No [...]
--- OUTSIDE RECORDS SUMMARY | 2017-08-23 14:24 | External Medical Summary Rpt | CCD ---
Author Author , ELISSA BOWERS Address Unknown Phone Care Team Providers Care Public Health Officer Name Role Phone Matthew Carson MD, Unavailable Unavailable Matthew LOPEZ MD, Unavailable Unavailable SHAGUFTA Hu MD, Unavailable Unavailable Latasha Barrera MD, Unavailable Unavailable Guilherme JESUS FAUSTINO DO, Unavailable Unavailable EDIN HARMON DO Purpose Continuity of Care Document - 07-24-2011 through 2016 Problems Code Diagnosis DOS Provider Status 847.2 847.2 11-28-2013 [place] SPRAIN [facility] REGION E849.0 E849.0 11-28-2013 [place] ACCIDENT IN [facility] E885.9 E885.9 FALL 11-28-2013 [place] FROM [facility] SLIPPING, Hospital TRIPPING, OR STUMBLING NEC 923.10 923.10 10-08-2013 [place] CONTUSION [facility] E880.9 E880.9 FALL 10-08-2013 [place] ON [facility] STAIR/STEP [facility] NEC 682.2 682.2 06-09-2013 [place] CELLULITIS [facility] V12.04 V12.04 06-09-2013 [place] PERSONAL [facility] METHICILLIN RESISTANT STAPHYLOCOC CUS AUREUS 461.9 461.9 ACUTE 06-06-2013 [place] SINUSITIS [facility] 923.20 923.20 02-10-2013 [place] CONTUSION [facility] HAND(S) [facility] E917.9 E917.9 02-10-2013 [place] STRUCK BY [facility] OBJ/PERSON [facility] NEC G43.909 MIGRAINE, UNSP, NOT INTRACTABLE , WITHOUT STATUS MIGRAINOSUS J20.9 ACUTE BRONCHITIS, UNSPECIFIED M77.9 ENTHESOPATH Y, UNSPECIFIED Allergies, Adverse Reactions, Alerts Type Allergy to [...] 64 20 ng ZA 42 14 er IA 0 IN Ac E ti 10 ve [...] 50 ti ve MG TA BL ET IA 00 08 0 No ED 05 -2 [...] 5.0-8.5 complet PH 014 ed 17:45 URINE -15-2 NEGATIV NEG complet PROTEIN 014 E mg/dL ed - 17:45 DIPSTIC K URINE -15-2 0.2 NEG complet UROBILI 014 E.U./dL ed NOGEN - 17:45 DIPSTIC K URINE -15-2 NEGATIV NEG complet NITRATE 014 E ed - 17:45 DIPSTIC K URINE -15-2 NEGATIV NEG complet LEUK 014 E ed ESTERAS 17:45 E URINE -15-2 3-5 O complet WBC 014 wbc/hpf ed 17:45 URINE -15-2 OCC OCC complet SQUAMOU 014 #/hpf ed S CELLS 17:45 URINE -15-2 TRACE NONE complet AMORPH 014 ed SEDIMEN [...] Performer Comment OTHER 86.04 Latasha COLLINS & Fritz ALLEN SUBQ I D Encounters Encounter Start End Date Code Location Performer Type Date Emergency SLY HARMON DO (ER) 4 17:31 4 18:23 [facility] Emergency SLY LOPEZ MD (ER) 3 16:30 3 16:59 [facility] Emergency SLY Hu MD (ER) 3 19:34 3 20:56 [facility] Emergency SLY Barrera MD (ER) 3 22:48 3 23:37 [facility] Emergency SLY FOURNIER (ER) 3 16:06 3 16:24 [facility] Emergency SLY Koehler (ER) 3 15:25 3 16:59 [facility] Emergency SLY Carson MD (ER) 3 15:56 3 16:09 [facility] Emergency SLY Barrera MD (ER) 3 18:18 3 19:21 [facility] Emergency SLY Carson MD (ER) 3 18:41 3 19:24 [facility]
--- OUTSIDE RECORDS SUMMARY | 2017-08-23 14:24 | External Medical Summary Rpt | CCD ---
Author Author , ELISSA Organization ELISSA Address Unknown Phone [email or web address] Immunization Name Date Rout CVX Reac Dose [...]
--- OUTSIDE RECORDS SUMMARY | 2017-08-23 14:24 | External Medical Summary Rpt | CCD ---
Author Author , ELISSA BOWERS Address Unknown Phone [email or web address] Care Team Providers Care Body Care Manager Name Role Phone Matthew Carson MD, Unavailable Unavailable Matthew LOPEZ MD, Unavailable Unavailable SHAGUFTA Hu MD, Unavailable Unavailable Latasha Barrera MD, Unavailable Unavailable Guilherme JESUS FAUSTINO DO, Unavailable Unavailable EDIN HARMON DO Purpose Continuity of Care Document - 07-24-2011 through 2016 Problems Code Diagnosis DOS Provider Status 847.2 847.2 11-28-2013 [place] SPRAIN [facility] REGION E849.0 E849.0 11-28-2013 [place] ACCIDENT IN [facility] E885.9 E885.9 FALL 11-28-2013 [place] FROM [facility] SLIPPING, Hospital TRIPPING, OR STUMBLING NEC 923.10 923.10 10-08-2013 [place] CONTUSION [facility] E880.9 E880.9 FALL 10-08-2013 [place] ON [facility] STAIR/STEP [facility] NEC 682.2 682.2 06-09-2013 [place] CELLULITIS [facility] V12.04 V12.04 06-09-2013 [place] PERSONAL [facility] METHICILLIN RESISTANT STAPHYLOCOC CUS AUREUS 461.9 461.9 ACUTE 06-06-2013 [place] SINUSITIS [facility] 923.20 923.20 02-10-2013 [place] CONTUSION [facility] HAND(S) [facility] E917.9 E917.9 02-10-2013 [place] STRUCK BY [facility] OBJ/PERSON [facility] NEC G43.909 MIGRAINE, UNSP, NOT INTRACTABLE [...] 64 20 ng ZA 42 14 er TN 0 IN Ac E ti 10 ve [...] 50 ti ve MG TA BL ET [place] 00 08 0 No ED 05 -2 [...] HARMON DO (ER) 4 17:31 4 18:23 [facility] Emergency SLY LOPEZ MD (ER) 3 16:30 3 16:59 [facility] Emergency SLY Hu MD (ER) 3 19:34 3 20:56 [facility] Emergency SLY Barrera MD (ER) 3 22:48 3 23:37 [facility] Emergency SLY FOURNIER (ER) 3 16:06 3 16:24 [facility] Emergency SLY Koehler (ER) 3 15:25 3 16:59 [facility] Emergency SLY Carson MD (ER) 3 15:56 3 16:09 [facility] Emergency SLY Barrera MD (ER) 3 18:18 3 19:21 [facility] Emergency SLY Carson MD (ER) 3 18:41 3 19:24 [facility]
[2017-08-23 14:48] LABS: URINE BILIRUBIN - DIPSTICK NEGATIVE (NEG); URINE BLOOD NEGATIVE (NEG)
--- NOTE | 2017-08-23 15:00 | Urgent Treatment Center Report ---
History of Present Issue Date/Time Seen by Provider 08/23/17 8805 Visit Reason Pt arrived:Walked Presenting Problem:PT C/O OF RIGHT FLANK PAIN SINCE THIS AM. Location if Accident: Onset of symptoms date/time:08/23/1707/30/800 or onset unknown for: Have you (or family members/close friends) recently traveled outside the [place]? N If Yes, where/when: Have you had exposure to infectious disease within the past month? TB? Other? Specify: c/o right flank pain since this morning. Woke up at 0430 for work. Was sitting on couch when pain first noticed. No known injury or cause. Mild at that time. Went on in to work at [employer] but while working, pain progressively worsened so work let him leave early. No treatment since onset. Worse with movement. Denies dysuria, urinary frequency, change in urine color or an odor. Pt just seen by me Saturday, 4 days ago, for lower "lung pain". Had trouble describing that pain. CXR normal. No risk factors for PE. pt had taken two advil that day and improved more in clinic with toradol injection. Pain resolved soon after discharge requiring only one muscle relaxer that evening. Returned to work Saturday and no same pain since. 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 Source patient Exam Limitations no limitations ALLERGIES Coded Allergies: No Known Allergies (02/14/17) Home Medications Active Scripts Cyclobenzaprine Hcl (Flexeril) 0.5-1 TAB PO Q8HP PRN muscle spasm/pain #6 TAB Prov: 08/19/17 History Medical History General CAD? No Angina: Yes RI: No Hypertension? No Hyperlipidemia? Yes CHF? No DVT? No PE? No COPD? No Asthma? No Anemia? No GERD? No Gastric ulcers? No GI Bleed? No Hernia? No Thyroid Problems? No Hypothyroidism? No CVA? No Seizures? No Diabetes? No Renal Insuffiency? No UTI? No Stones? No BPH? No GB Disease: No Nephritic Syndrome? No Asplenia? No Hepatitis? No Sickle Cell Disease? No Arthritis? No Migraines? Yes Cataracts? No Glaucoma? No MRSA? Yes HIV? No TB? No Anxiety? No Depression? No Cancer? No More? Yes Additional hx: MIGRAINES Immunization HX DT/Tetanus > 10 YRS Surgical Hx Previous Surgery?Y CYST ON RIGHT NIPPLE ABCESS AT UMBILICUS ANKLE,LEFT SURGERY Family History Family HX Hyperlipidemia Yes Social History Smoking Hx Smoker: Never Smoker Tobacco: No Alcohol Alcohol: Yes Review of Systems All Other Systems Reviewed and Negative (as appropriate for CC) Constitutional denies chills, denies diaphoresis, denies fever, denies malaise, denies weakness Respiratory denies cough, denies shortness of breath Cardiovascular denies chest pain, denies edema, denies palpitations Gastrointestinal denies abdominal pain, denies diarrhea, denies nausea, denies vomiting Genitourinary see HPI. denies: discharge, hesitancy, hematuria, dyspareunia. Musculoskeletal see HPI, denies joint pain, denies joint swelling, denies muscle pain, denies muscle stiffness Skin denies change in color, denies lesions, denies lumps, denies rash Psychiatric/Neurological denies numbness, denies tingling Physical Exam Vital Signs Vital Signs Date Time Temp Pulse Resp B/P Pulse O2 O2 Flow FiO2 Ox Delivery Rate 08/23 1557 98.2 88 18 138/83 98 08/23 1541 18 08/23 1434 98.2 88 20 138/83 98 General Appearance no apparent distress (seated on edge of exam table), obese, bed bug crawling up shirt Ear, Nose, Throat normal ENT inspection Neck normal inspection, full range of motion Respiratory Status Yes: trachea midline, chest symmetrical, non tender chest. No: respiratory distress, use of accessory muscles, pain on inspiration, pain on expiration, productive cough, non productive cough. Lung Sounds anterior: lungs clear. posterior: lungs clear. bilateral: lungs clear. Cardiovascular regular rate/rhythm, no peripheral edema, no murmur Gastrointestinal normal bowel sounds, non tender, soft Back normal inspection, no vertebral tenderness, bowel/bladder continent, gait normal, CVA tenderness (R), strt leg raising(L)-NML, strt leg raising(R)-NML, ttp localized to right side of back, not flank, lower thoracic/upper lumbar region Extremities non-tender, normal range of motion Strength 5 Upper Ext (L), 5 Upper Ext (R), 5 Lower Ext (L), 5 Lower Ext (R) Neurologic alert, no motor/sensory deficits, oriented x 3 Reflexes Reflexes normal Yes (patellar) Skin normal color, warm/dry Medical Decision Making LABS/Meds/Orders Pt receiving controlled substance in ED? No Results/Orders Laboratory Tests 08/23/17 1500: Sodium 140, Potassium 4.0, Chloride 105, Carbon Dioxide 29, BUN 11, Creatinine 1.0, Estimated Creat Clear 215 H, Estimated GFR (MDRD) 89, Glucose 152 H, Calcium 8.9, WBC 6.9, RBC 4.89, Hgb 14.3, Hct 42.1, MCV 86.1, RDW 12.4, Plt Count 234, MPV 7.2 L, Gran % 57.2, Gran # 3.9, Lymphocytes % 34.1, Monocytes % 4.9, Eosinophils % 3.6, Basophils % 0.3, Lymphocytes # 2.3, Monocytes # 0.3, Eosinophils # 0.3, Basophils # 0.0, PUBS MCHC 33.8, MCH 29.1 08/23/17 1443: Urine Color YELLOW, Urine Appearance CLEAR, Urine pH 7.0, Ur Specific [place] 1.020, Urine Protein NEGATIVE, Urine Ketones NEGATIVE, Urine Blood NEGATIVE, Urine Nitrate NEGATIVE, Urine Bilirubin NEGATIVE, Urine Urobilinogen 1, Ur Leukocyte Esterase NEGATIVE, Urine Glucose NEGATIVE Current Medication Orders Sig/Elda Start time Last Medication Dose Route Stop Time Status Admin Ketorolac 60 MG ONCE ONE 08/23 1545 DC 11 Tromethamine IM 08/23 1546 1541 Ketorolac 0 .STK-MED ONE 08/23 1539 DC Tromethamine .ROUTE Orders Procedure Date/time Status CBC WITH AUTO DIFF 08/23 1451 Complete BASIC METABOLIC PROFILE 08/23 1451 Complete [facility] URINE DIPSTICK 08/23 1443 Complete Progress [facility] Progress Notes Date 08/23/17 Time 1555 Comment pain "much improved" since toradol injection. Pt moving around in room and trying different positions "doesn't hurt nearly as bad". Rvwd POC. Pt w/o PCP due to no insurance. Agrees to follow up for new, worsening or persistant symptoms. request work excuse. Departure Departure Time of Disposition 1556 Disposition DC Home or Self Care(routine) Clinical Impression Primary Impression: Musculoskeletal back pain Condition STABLE Referrals NO REFERRAL we have provided you with a list of providers accepting patients. I would encourage you find a primary care provider and make an appt LEIGH as it can take weeks to get a new patient appointment. it is cheaper to see a primary care doctor then it is to continue to use the [facility]/ER. We are more then happy to see you when necessary but hate to see you with large bills when primary care can see you cheaper. In the meantime, follow up in the clinic or ER for new, worsening or persistent symptoms as you don't want to put off the symptoms you are having. Patient Instructions DI for Bed Bug Bites, DI for Musculoskeletal Pain Additional Instructions Same education as Saturday * Ibuprofen every 6 hours with meal as needed for pain/inflammation. * Remember you had a toradol shot, similiar anti-inflammatory in clinic so no anti-inflammatories for 6-8 hours. * No additional anti-inflammatories like motrin, aleve, advil with the above amount of ibuprofen. You CAN still take Tylenol every 4 hours as needed if you need something more for pain. * Ice x15-20 mins 3-4 times a day for first 48 hours after the initial injury followed by moist heat x15-20 mins 3-4 times a day to affected area * Muscle relaxer every 8 hours as needed for muscle spasms but remember, it WILL cause drowsiness. 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 you should still have these from Saturday since you only took one then * Keep this area active. No movement leads to more stiffness. However, take it easy too and avoid heavy lifting, pushing, pulling. * Consider discussing positioning and work ergonomics with management as this could likely be work positioning related. * Read education about bed bugs. You could have picked this bug up anywhere in public but I would be sure to check your house for signs of them there. Discharge Counseling Counseled pt/family regarding diagnosis, test results, medications/RX, home care, follow up needs at 1604
[2017-08-23 15:19] LABS: LYMPH # 2.3 K/mm3 (0.7-4.5); LYMPH % 34.1 % (10-50)
[2017-08-23 15:27] LABS: HEMOGLOBIN 14.3 g/dL (14.1-18.0)
[2017-08-23 15:57] VITALS: BP 138/83
== END 2017-08-23 16:07 | disposition home or self-care (01) ==
LOC: UTC 14:18
PROVIDERS: Nurse Practitioner Family
DX: M54.5 Low back pain (principal); E78.5 Hyperlipidemia, unspecified

== ENCOUNTER 2017-09-21 17:36 | Emergency (ER) | payer SELFPAY ==
[~2017-09-21] VITALS: Ht 188 cm; Wt 136.1 kg
--- OUTSIDE RECORDS SUMMARY | 2017-09-21 17:45 | External Medical Summary Rpt | CCD ---
Author Author , ELISSA Organization ELISSA Address Unknown Phone [email or web address] Care Team Providers Care Laboratory Mechanical Technician Name Role Phone ALFARIS MOH, ALFARIS Unavailable Unavailable MOH ARNOLD CHARLENE, ARNOLD Unavailable Unavailable CHARLENE Matthew Carson MD, Unavailable Unavailable JESSICA Miranda MD Unavailable Unavailable [facility] Unavailable Unavailable & INTER, [facility] SHAGUFTA LOPEZ MD, Unavailable Unavailable SHAGUFTA LOPEZ MD [facility] Unavailable Unavailable MEDICAL CENTE, [facility] SANDRANanci HARMAN, SANDRA Unavailable Unavailable JR HARMAN MARGARITO DUSTY, Unavailable Unavailable MARGARITO DUSTY MARGARITODEEPIKA FRANCOIS, Unavailable Unavailable MARGARITO, DEEPIKA [facility] Un[facility] Unavailable Un[facility] P, [facility] SYLWIA WAGONER, SYLWIA Unavailable Unavailable [facility] Unavailable Unavailable INC, [facility] Unavailable Unavailable HOSPITAL P, [facility] Unavailable Unavailable IMAGING ASS, [facility] Latasha Hu MD, Unavailable Unavailable Latasha Hu MD [facility] Guilherme Barrera MD, Unavailable Unavailable Guilherme Barrera MD [facility] Unavailable Unavailable SERVICES, [facility], Unavailable Unavailable [facility], [facility] REED BONNIE, REED BONNIE Unavailable Unavailable PETTEY JAM, PETTEY Unavailable Unavailable JAM FAUSTINO BETSY, FAUSTINO BETSY Unavailable Unavailable SCIFRES, SCIFRES Unavailable Unavailable SCIFRES ANG, SCIFRES Unavailable Unavailable ANG [facility] Unavailable Unavailable EMER[facility]ENCY PH[facility], [facility] EDIN FAUSTINO DO, Unavailable Unavailable EDIN FAUSTINO DO [facility], Unavailable Unavailable [facility] KIM Unavailable Unavailable Purpose Continuity of Care Document - 11-21-2007 through 2016 Problems Code Diagnosis DOS Provider Status [id number] MIGRAINE 05-12-2017 [place] W/[facility] NOT INTRACT INC W/O STAT MIGRAIN R51 HEADACHE 02-14-2017 [facility] [id number] REGULAR 11-09-2016 [facility] ASTIGMATISM BILATERAL E780 PURE 05-18-2016 [place] [facility] I69519 MIGRAINE 05-18-2016 [place] UNS NOT REGIONAL INTRACT W/O MEDICAL STATUS CENTE MIGRAINOSUS R109 UNSPECIFIED 11-03-2015 [facility] ABD[facility]AL [facility]IOLOG[facility] PAIN GROUP P R112 NAUSEA WITH 11-03-2015 [facility]ITING [facility] UNSPECIFIED GROUP P R1030 LOWER 11-02-2015 [facility] ABDOMINAL N EMERGENCY PAIN PHYS UNSPECIFIED R197 DIARRHEA 11-02-2015 [facility] UNSPECIFIED N EMERGENCY PHYS J0190 ACUTE 10-07-2015 [facility] SINUSITIS N EMERGENCY UNSPECIFIED PHYS B89553 CELLULITIS 08-13-2015 [facility] PHYS 4558 UNSPECIFIED 04-19-2015 [facility] HEMORRHOIDS & INTER WITH OTHER COMPLICATIO N 4139 OTHER AND 03-26-2015 [place] UNSPECIFIED [facility] ANGINA INC PECTORIS 4660 ACUTE 03-26-2015 [facility] BRONCHITIS PHYSICIANS, [facility] 60822 SHORTNESS 03-26-2015 [facility] 10177 CHEST PAIN 03-10-2015 [facility] 77633 PRECORDIAL 03-10-2015 [place] PAIN [facility] INC V1749 FAMILY 03-10-2015 [place] HISTORY OF [facility]OS[facility] OTHER INC CARDIOVASCU LAR DISEASES V7791 SCREENING 02-09-2015 [place] FOR LIPOID [facility] DISORDERS INC V259 UNSPECIFIED 02-04-2015 [facility] CONTRACEPTI & INTER VE MANAGEMENT 5589 OTH&UNSPEC 10-02-2014 [place] NONINFECTIO [facility] GASTROENTER ITIS&COLITI S 6084 OTHER 10-02-2014 [place] INFLAMMATOR [facility] Y DISORDER INC MALE GENITAL ORGANS 29662 PAIN IN 09-28-2014 [place] JOINT, MEDICAL UPPER ARM [facility] 44934 OTHER 09-28-2014 [facility] [address] HORDEOLUM 09-19-2014 [place] EXTERNUM [facility] INC V642 SURG/OTH 09-19-2014 [place] PROC NOT [facility] CARRIED OUT INC BECAUSE PTS DECN 2724 OTHER AND 09-17-2014 [place] UNSPECIFIED [facility] HYPERLIPIDE SAVANNAH 54979 MIGRAINE 09-17-2014 [place] UNSP W/O [facility] INTRACT W/O HOSPITAL P STATUS MIGRAINOSUS 7248 OTHER 11-28-2013 MARGARITO SYMPTOMS DUSTY REFERABLE TO BACK 847.2 847.2 11-28-2013 [place] SPRAIN [facility] LUMBAR [facility] REGION 8472 LUMBAR 11-28-2013 FAUSTINO BETSY SPRAIN AND STRAIN E849.0 E849.0 11-28-2013 [place] ACCIDENT IN [facility] E885.9 E885.9 FALL 11-28-2013 [place] FROM [facility] SLIPPING, Hospital TRIPPING, OR STUMBLING NEC E8859 FALL FROM 11-28-2013 FAUSTINO BETSY OTHER SLIPPING TRIPPING OR STUMBLING E8889 UNSPECIFIED 11-28-2013 [place] FALL DUSTY 44545 GENERALIZED 10-08-2013 [place] PAIN DUSTY 923.10 923.10 10-08-2013 [place] CONTUSION [facility] 23179 CONTUSION 10-08-2013 [facility] FOREARM [facility] 9239 CONTUSION 10-08-2013 LOPEZ BRO OF UNSPECIFIED PART OF UPPER LIMB E880.9 E880.9 FALL 10-08-2013 [place] ON [facility] STAIR/STEP [facility] NEC 682.2 682.2 06-09-2013 [place] CELLULITIS [facility] 6822 CELLULITIS 06-09-2013 [facility] SERA AND ABSCESS OF TRUNK V12.04 V12.04 06-09-2013 [place] PERSONAL [facility] METHICILLIN RESISTANT STAPHYLOCOC CUS AUREUS V1204 PERSONAL HX 06-09-2013 [facility] METHICILLIN INC RESIST STAPH AUREUS 461.9 461.9 ACUTE 06-06-2013 [place] SINUSITIS [facility] 4618 OTHER ACUTE 06-06-2013 [place] MIC SINUSITIS 4619 ACUTE 06-06-2013 [place] SINUSITIS, [facility] UNSPECIFIED INC 17778 CONTUSION 05-29-2013 [facility] BACK 7242 LUMBAGO 05-28-2013 MARGARITO DUSTY 15456 OBESITY, 05-12-2013 DESTINY CHANG UNSPECIFIED 94199 VARIANTS 05-12-2013 DESTIN[facility] CHANG MIGRAINE NEC INTRACT MIGRAINE W/O 67441 OSTEOARTHRO 05-12-2013 DESTINY Jameson INVLV MX SITES BUT NOT SPEC GEN 5718 OTHER 05-11-2013 REED BONNIE CHRONIC NONALCOHOLI C LIVER DISEASE 7905 OTHER 05-11-2013 REED BONNIE NONSPECIFIC ABNORMAL SERUM ENZYME LEVELS 62982 UNSPECIFIED 04-30-2013 [place] [facility]KLE SERVICES SPRAIN AND STRAIN V5869 LONG-TERM 04-30-2013 [place] (CURRENT) [facility] USE OF INC OTHER MEDICATIONS 95389 PAIN IN 04-25-2013 M[facility] JOINT, DUSTY ANKLE AND FOOT 9597 INJURY 04-25-2013 MARGAR[facility]O OTHER&UNSPE DUSTY CIFIED KNEE LEG ANKLE&FOOT 7948 NONSPECIFIC 04-22-2013 [place] ABNORMAL [facility] RESULTS INC LIVR FUNCTION STUDY 49622 PAIN IN 02-10-2013 [place] JOINT, HAND DUSTY 7262 OTHER 02-10-2013 PETTE[facility] JAM AFFECTIONS OF SHOULDER REGION NEC 8409 SPRAIN&STRA 02-10-2013 PETTEY JAM IN UNSPEC SITE SHOULDER&UP PER ARM 26454 SPRAIN AND 02-10-2013 [facility] STRAIN OF UNSPECIFIED SITE OF WRIST 923.20 923.20 02-10-2013 [place] CONTUSION [facility]() [facility] 81040 CONTUSION 02-10-2013 [facility] 9599 INJURY 02-10-2013 MARGAR[place]O OTHER AND DUSTY UNSPECIFIED UNSPECIFIED SITE E917.9 E917.9 02-10-2013 [place] STRUCK BY [facility] NEC 2512 HYPOGLYCEMI 01-26-2013 [place] A, [facility] UNSPECIFIED INC 57040 OTHER 01-26-2013 [place] [facility] FATIGUE INC 69466 PAIN IN 01-13-2013 [place] JOINT, [facility]OS[facility] SHOULDER INC REGION 7273 OTHER 11-06-2012 DESTINY CHANG BURSITIS DISORDERS 6089 UNSPECIFIED 09-25-2012 SANDRA [place] DISORDER KIMANI OF MALE GENITAL ORGANS V720 EXAMINATION 09-11-2012 [facility] ANG OF EYES AND VISION 5110 PLEURISY 06-30-2012 [place] WITHOUT EMERGENCY MENTION SERVICES EFFUS/[place] [address] UNSPECIFIED 06-23-2012 [place] CELLULITIS [facility]GENCY AND SERVICES ABSCESS OF FINGER 33208 ONYCHIA AND 06-23-2012 [place] PARONYCHIA [facility]OS[facility] OF FINGER INC 70209 ASTHMA, 03-28-2012 [place] UNSPECIFIED [facility] , INC UNSPECIFIED STATUS 02107 ABDOMINAL 03-20-2012 [place] [facility] RIGHT EMERGENCY UPPER SERVICES QUADRANT 39880 ABDOMINAL 03-20-2012 [place] PAIN, MEM HOS[facility] EPIGASTRIC INC 4019 UNSPECIFIED 03-10-2012 [place] ESSENTIAL [facility]Y HYPERTENSIO SERVICES N 7962 ELEVATED BP 03-10-2012 [place] READING [facility] WITHOUT DX INC HYPERTENSIO N 486 PNEUMONIA, 01-22-2012 [place] ORGANISM EMERGENCY UNSPECIFIED SERVICES 6826 CELLULITIS 10-17-2011 [place] AND ABSCESS [facility]OS[facility] OF LEG INC EXCEPT FOOT 8500 CONCUSSION 10-16-2011 [place] WITH [place] [address] HEAD 10-16-2011 [facility] IN[facility]UR[facility], MEDICAL UNSPECIFIED IMAGING ASS 70833 NAUSEA WITH 08-14-2011 [place] [facility] 79445 ABDOMINAL 08-14-2011 [place] PAIN, MEDICAL UNSPECIFIED IMAGING ASS SITE 7048 OTHER 12-12-2007 LAST, SPECIFIED DON R DISEASE OF HAIR&HAIR FOLLICLES 58536 OTHER CHEST 12-12-2007 LAST, PAIN DON R [...] 64 20 ng ZA 42 14 er HI 0 IN Ac E ti 10 ve [...] 50 ti ve MG TA BL ET HI 00 08 0 No ED 05 -2 [...] Order Detail nces retati t Range on CBC w auto diff (08-23-2017 15:00) Automat 2 = 0.0 0-0.2 complet ed 017 K/MM3 ed blood 15:00 basophi l count (count/ vo Baso % = 0.3 % 0.1-2.0 complet 017 ed 15:00 Automat = 0.3 0.0-0.4 complet ed 017 K/mm3 ed blood 15:00 eosinop hil count Automat = 3.6 % 0.1-12. complet ed 017 0 ed blood 15:00 eosinop hils/10 0 leukocy t Blood = 3.9 1.3-8.0 complet granulo 017 K/mm3 ed cytes 15:00 automat ed count (numb Granulo = 57.2 37.0-80 complet cyte 017 % .0 ed percent 15:00 age Blood = 42.1 42.0-52 complet hematoc 017 % .0 ed rit 15:00 (volume fractio n) Blood = 14.3 14.1-18 complet hemoglo 017 g/dL .0 ed bin 15:00 measure ment (mass/v olum Absolut = 2.3 0.7-4.5 complet e 017 K/mm3 ed lymphoc 15:00 yte count Lymphoc = 34.1 10-50 complet yte 017 % ed count, 15:00 blood, automat ed Mean = 29.1 27-31.2 complet corpusc 017 pg ed ular 15:00 hemoglo bin (MCH) determ Automat = 33.8 31.8-35 complet ed 017 g/dl .4 ed erythro 15:00 cyte mean corpusc ular h Automat = 86.1 82.2-97 complet ed 017 fl .8 ed erythro 15:00 cyte mean corpusc ular v Absolut = 0.3 0.1-1.0 complet e 017 K/mm3 ed monocyt 15:00 e count Wheeler % = 4.9 % 1.7-9.3 complet 017 ed 15:00 Automat = 7.2 7.4-10. complet ed 017 fl 4 ed blood 15:00 platele t mean volume sienna Blood = 234 142-424 complet platele 017 K/mm3 ed t count 15:00 Red = 4.89 4.6-6.2 complet blood 017 M/mm3 ed cell 15:00 count Automat = 12.4 11.5-17 complet ed 017 % .5 ed erythro 15:00 cyte distrib ution width Blood = 6.9 4.8-10. complet leukocy 017 K/MM3 8 ed lauri 15:00 count (number /volume ) Basic metabolic panel (08-23-2017 15:00) Serum 10-2 = 140 136-145 complet sodium 017 mmoL/L ed measure 15:00 ment Serum 08-23-2 = 4.0 3.5-5.1 complet potassi 017 mmoL/L ed um 15:00 measure ment Serum 08-23-2 = 152 74-106 complet or 017 mg/dL ed plasma 15:00 glucose measure ment (mas Estimat 2 = 89 >60 complet ed 017 ML/MIN ed glomeru 15:00 lar filtrat ion rate (GF Comment: REFERENCE RANGE: >60 ML/MIN/1.73 SQUARE METERS Comment: If this patient is -Yemeni, then multiply the Comment: result by 1.210. Estimat = 215 50-200 complet ion of 017 ML/MIN ed creatin 15:00 ine renal clearan ce Serum = 1.0 0.70-1. complet or 017 mg/dL 30 ed plasma 15:00 creatin ine measure ment ( Carbon = 29 21.0-32 complet dioxide 017 mmoL/L .0 ed 15:00 measure ment Serum 2 = 105 98-107 complet or 017 mmoL/L ed plasma 15:00 chlorid e measure ment (mo Serum = 8.9 8.5-10. complet or 017 mg/dL 1 ed plasma 15:00 calcium measure ment (mas Serum 2 = 11 7-18 complet or 017 mg/dL ed plasma 15:00 urea nitroge n measure men Urinalysis by dipstick (08-23-2017 14:43) Urine 1 1 L NEG complet urobili 017 E.U./dL ed nogen 14:43 detecti on by test str Urine NEGATIV NEG complet nitrite 017 E ed 14:43 NEGATIV detecti E L on by test strip Urine NEGATIV NEG complet leukocy 017 E ed te 14:43 NEGATIV esteras E L e detecti on by au Urine = 1.020 1.005-1 complet specifi 017 .030 ed c 14:43 gravity measure ment Urine 11-10-2 = NEG complet protein 017 NEGATIV ed 14:43 E mg/dL measure ment by automat ed t Urine 11-10-2 = 7.0 5.0-8.5 complet pH 017 ed 14:43 Urine 11-10-2 NEGATIV NEG complet ketones 017 E ed 14:43 NEGATIV detecti E L on by mg/dL automat ed lauri Glucose 11-10-2 = NEG complet ur 017 NEGATIV ed test 14:43 E strip Urine 11-10-2 YELLOW YELLOW complet color 017 YELLOW ed 14:43 L Urine 11-10-2 NEGATIV NEG complet blood 017 E ed detecti 14:43 NEGATIV on E L Urine 11-10-2 NEGATIV NEG complet total 017 E ed bilirub 14:43 NEGATIV in E L detecti on by test Urine 11-10-2 CLEAR CLEAR complet appeara 017 CLEAR L ed nce 14:43 determi nation URINALYSIS/COMPLETE (11-28-2013 17:45) URINE -15-2 YELLOW YELLOW [...] E ed - 17:45 DIPSTIC K URINE 02-15-2 NEGATIV NEG complet LEUK 014 E ed ESTERAS 17:45 E URINE 02-15-2 3-5 O complet WBC 014 wbc/hpf ed 17:45 URINE OCC OCC complet SQUAMOU 014 #/hpf ed S CELLS 17:45 URINE TRACE NONE complet AMORPH 014 ed SEDIMEN 17:45 Procedures Procedure DOS Code Location Performer Comment RADEX 08268 NETTIE MARGARITO, UPPER GI 8 MEDICAL DEEPIKA W/WO IMAGING GLUCAGON/ ASSOCIATE DELAY S IMAGES W/KUB OTHER 86.04 Latasha COLLINS & Fritz ALLEN SUBQ I D Encounters Encounter Start End Date Code Location Performer Type Date [facility] [place] - [facility] 7 [facility] [place] [facility] 7 [facility] [place] [facility] 7 [facility] [place] [facility] [place] [facility] 6 6 [facility] [place] [facility] [place] [facility] 6 [facility] [place] [facility] 5 [facility] [place] 5 5 [facility] [place] [facility] 5 [facility] [place] [facility] 5 5 [facility] [place] [facility] 5 5 [facility] [place] [facility] 4 4 [facility] [place] [facility] 4 4 [facility] [place] [facility] 4 [facility] [place] - 4 4 [facility] [place] - [facility] 4 [facility] OUTPATI[facility] T Emergency SLY HARMON DO (ER) 4 17:31 4 18:23 [facility] Emergency SLY LOPEZ MD (ER) 3 16:30 3 16:59 [facility] [place] - [facility] 3 [facility] OUTPAT[facility] INC T Emergency SLY Hu MD (ER) 3 19:34 3 20:56 [facility] [place] - 3 3 [facility] OUTPAT[facility] INC T Emergency SLY Barrera MD (ER) 3 22:48 3 23:37 [facility] [place] [facility] 3 [facility] OUTPAT[facility] INC T Emergency SLY FOURNIER (ER) 3 16:06 3 16:24 [facility] [place] - [facility] 3 [facility] OUTPATIEN INC T Emergency SLY Koehler (ER) 3 15:25 3 16:59 [facility] [place] - 3 3 [facility] OUTPATIEN INC T Emergency SLY Carson MD (ER) 3 15:56 3 16:09 [facility] [place] - 3 3 [facility] OUTPATIEN INC T Emergency SLY Barrera MD (ER) 3 18:18 3 19:21 [facility] [place] - [facility] 3 [facility] [place] [facility] 3 [facility] OUTPAT[facility] INC T Emergency SLY Carson MD (ER) 3 18:41 3 19:24 [facility] [place] - 3 3 [facility] [...] [place] [facility] 1 1 [facility] OFFICE [id number] [facility] OUTPATIEN 8 8 DON R DON R T VISIT 15 MINUTES [facility]OSPITAL [place] [facility] 8 [facility] OFFICE [id number] [facility] LAST OUTPATIEN 8 8 DON R DON R T VISIT 15 MINUTES
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
--- OUTSIDE RECORDS SUMMARY | 2017-09-21 17:47 | External Medical Summary Rpt | CCD ---
Author Author , ELISSA BOWERS Address Unknown Phone [email or web address] Immunization Name Date Rout CVX Reac Dose [...]
--- OUTSIDE RECORDS SUMMARY | 2017-09-21 17:47 | External Medical Summary Rpt | CCD ---
Author Author , ELISSA Organization ELISSA Address Unknown Phone Care Team Providers Care Busboy Name Role Phone ALFARIS MOH, ALFARIS Unavailable Unavailable MOH ARNOLD CHARLENE, ARNOLD Unavailable Unavailable CHARLENE JESSICA CHIRINOS, JESSICA Unavailable Unavailable [facility] Unavailable Unavailable & INTER, [facility], [facility] SANDRA JR KIMANI, SANDRA Unavailable Unavailable JR KIMANI MARGARITO DUSTY, Unavailable Unavailable MARGARITO DUSTY MARGARITO, DEEPIKA, Unavailable Unavailable MARGARITO, DEEPIKA [facility] Unavailable [facility]available [facility] Un[facility] Unavailable [facility] P, [facility] SYLWIA CIARAN, SYLWIA Unavailable Unavailable [facility] Unavailable Unavailable INC, [facility] Unavailable Unavailable HOSPITAL P, [facility] Unavailable Unavailable IMAGING [facility], [facility] Unavailable Unavailable [facility], [place] [facility] Unavailable Unavailable SERVICES, [facility], Unavailable Unavailable PLL[facility], [facility] REED BONNIE, REED BONNIE Unavailable Unavailable PETTEY JAM, PETTEY Unavailable Unavailable JAM FAUSTINO BETSY, FAUSTINO BETSY Unavailable Unavailable SCIFRES, SCIFRES Unavailable Unavailable SCIFRES ANG, SCIFRES Unavailable Unavailable ANG [facility] Unavailable Unavailable EMERGENCY PHYS, [facility] OLIVER LAST, Unavailable Unavailable OLIVER LAST, TARAS ZAMORA Unavailable Unavailable Purpose Continuity of Care Document - 11-21-2007 through 2016 Problems Code Diagnosis DOS Provider Status [id number] MIGRAINE 05-12-2017 [facility] NOT INTRACT INC W/O STAT MIGRAIN R51 HEADACHE 02-14-2017 [facility] [id number] REGULAR 11-09-2016 [facility] ASTIGMATISM BILATERAL E780 PURE 05-18-2016 [facility] [id number] MIGRAINE 05-18-2016 [facility] UNS NOT REGIONAL INTRACT W/O MEDICAL STATUS CENTE MIGRAINOSUS R109 UNSPECIFIED 11-03-2015 [facility] ABDOMINAL RADIOLOGY PAIN GROUP P R112 NAUSEA WITH 11-03-2015 [facility] VOMITING RADIOLOGY UNSPECIFIED GROUP P R1030 LOWER 11-02-2015 [facility] ABDOM[facility]AL N EMERGENCY PAIN PHYS UNSPECIFIED R197 DIARRHEA 11-02-2015 [facility] UNSPECIFIED N EMERGENCY PHYS J0190 ACUTE 10-07-2015 [facility] SINUSITIS N EMERGENCY UNSPECIFIED PHYS [id number] CELLULITIS 08-13-2015 [facility] OF LEFT N EMERGENCY FINGER PHYS 4558 UNSPECIFIED 04-19-2015 [facility] HEMORRHOIDS & INTER WITH OTHER COMPLICATIO N 4139 OTHER AND 03-26-2015 [facility] UNSPECIFIED [facility] ANGINA INC PECTORIS 4660 ACUTE 03-26-[address] [facility] BRONCHITIS PHYSICIANS, [facility] 38680 SHORTNESS 03-26-2015 [place] OF BREATH [facility] 59653 CHEST PAIN 03-10-2015 [place] [facility] UNSPECIFIED SERV [facility] 25344 PRECORDIAL 03-10-2015 [facility] PAIN [facility] INC V1749 FAMILY 03-10-2015 [facility] HISTORY OF [facility] OTHER INC CARDIOVASCU LAR DISEASES V7791 SCREENING 02-09-2015 [facility] FOR LIPOID [facility] DISORDERS INC V259 UNSPECIFIED 02-04-2015 [facility] CONTRACEPTI & INTER VE MANAGEMENT 5589 OTH&UNSPEC 10-02-2014 [facility] NONINFECTIO [facility] P GASTROENTER ITIS&COLITI S 6084 OTHER 10-02-2014 [facility] INFLAMMATOR [facility] Y DISORDER INC MALE GENITAL ORGANS 09550 PAIN IN 09-28-2014 [place] JOINT, MEDICAL UPPER ARM IMAGING ASS 88178 OTHER 09-28-2014 [facility] SYNOVITIS [facility] [address] HORDEOLUM 09-19-2014 [facility] EXTERNUM [facility] INC V642 SURG/OTH 09-19-2014 [facility] PROC NOT [facility] CARRIED OUT INC BECAUSE PTS DECN 2724 OTHER AND 09-17-2014 [facility] UNSPECIFIED [facility] P HYPERLIPIDE SAVANNAH 94317 MIGRAINE 09-17-2014 [facility] UNSP W/O [facility] W/O [facility] P STATUS MIGRAINOSUS 7248 OTHER 11-28-2013 MARGARITO SYMPTOMS DUSTY REFERABLE TO BACK 8472 LUMBAR 11-28-2013 FAUSTINO BETSY SPRAIN AND STRAIN E8859 FALL FROM 11-28-2013 FAUSTINO BETSY OTHER SLIPPING TRIPPING OR STUMBLING E8889 UNSPECIFIED 11-28-2013 [facility] FALL DUSTY 63956 GENERALIZED 10-08-2013 [facility] PAIN DUSTY 41049 CONTUSION 10-08-2013 [facility] OF [facility] INC 9239 CONTUSION 10-08-2013 JESSICA CHIRINOS OF UNSPECIFIED PART OF UPPER LIMB 6822 CELLULITIS 06-09-2013 TARAS SERA AND ABSCESS OF TRUNK V1204 PERSONAL HX 06-09-2013 [facility] OF [facility] METHICILLIN INC RESIST STAPH AUREUS 4618 OTHER ACUTE 06-06-2013 [facility] CIARAN SINUSITIS 4619 ACUTE 06-06-2013 [facility] SINUSITIS, [facility] HOS[facility] UNSPECIFIED INC 33098 CONTUSION 05-29-2013 [facility] OF BACK 7242 LUMBAGO 05-28-2013 MARGARITO DUSTY 09676 OBESITY, 05-12-2013 DESTINY CHANG UNSPECIFIED 80261 VARIANTS 05-12-2013 DESTINY CHANG MIGRAINE NEC INTRACT MIGRAINE W/[place] [address] OSTEOARTHRO 05-12-2013 DESTINY CHANG S INVLV MX SITES BUT NOT SPEC GEN 5718 OTHER 05-11-2013 REED BONNIE CHRONIC NONALCOHOLI C LIVER DISEASE 7905 OTHER 05-11-2013 REED BONNIE NONSPECIFIC ABNORMAL SERUM ENZYME LEVELS 26085 UNSPECIFIED 04-30-2013 [facility]Y ANKLE SERVICES SPRAIN AND STRAIN V5869 LONG-TERM 04-30-2013 [facility] (CURRENT) [facility] USE OF INC OTHER MEDICATIONS 96900 PAIN IN 04-25-2013 MARGARITO JOINT, DUSTY ANKLE AND FOOT 9597 INJURY 04-25-2013 MARGARITO OTHER&UNSPE DUSTY CIFIED KNEE LEG ANKLE&FOOT 7948 NONSPECIFIC 04-22-2013 [facility] ABNORMAL [facility] RESULTS INC LIVR FUNCTION STUDY 86425 PAIN IN 02-10-2013 M[facility] JOINT, HAND DUSTY 7262 OTHER 02-10-2013 PET[facility] JAM AFFECTIONS OF SHOULDER REGION NEC 8409 SPRAIN&STRA 02-10-2013 PETTEY JAM IN UNSPEC SITE SHOULDER&UP PER ARM 15802 SPRAIN AND 02-10-2013 [facility] STRAIN OF UNSPECIFIED SITE OF WRIST 74233 CONTUSION 02-10-2013 [facility] HAND EMERGENCY SERVICES 9599 INJURY 02-10-2013 MARGARITO OTHER AND DUSTY UNSPECIFIED UNSPECIFIED SITE 2512 HYPOGLYCEMI 01-26-2013 [facility] A, [facility] UNSPECIFIED INC 44276 OTHER 01-26-2013 [facility] MALAISE AND [facility] FATIGUE INC 93989 PAIN IN 01-13-2013 [facility] JOINT, [facility] SHOULDER INC REGION 7273 OTHER 11-06-2012 DESTINY CHARLENE BURSITIS DISORDERS 6089 UNSPECIFIED 09-25-2012 SANDRA CARRINGTON DISORDER KIMANI OF MALE GENITAL ORGANS V720 EXAMINATION 09-11-2012 [facility] ANG OF EYES AND VISION 5110 PLEURISY 06-30-2012 [facility] WITHOUT EMERGENCY MENTION SERVICES EFFUS/[place] [address] UNSPECIFIED 06-23-2012 [facility] CELLULITIS [facility]GENCY AND SERVICES ABSCESS OF FINGER 66669 ONYCHIA AND 06-23-2012 [facility] PARONYCHIA [facility] OF FINGER INC 78318 ASTHMA, 03-28-2012 [facility] UNSPECIFIED [facility] , INC UNSPECIFIED STATUS 65410 ABDOMINAL 03-20-2012 [facility] PA[facility] RIGHT EMERGENCY UPPER SERVICES QUADRANT 91823 ABDOMINAL 03-20-2012 [facility] PAIN, [facility] EPIGASTRIC INC 4019 UNSPECIFIED 03-10-2012 [facility] ESSENTIAL [facility]Y HYPERTENSIO SERVICES N 7962 ELEVATED BP 03-10-2012 [facility] READING [facility] WITHOUT DX INC HYPERTENSIO N 486 PNEUMONIA, 01-22-2012 [facility] ORGANISM [facility]ERGENCY UNSPECIFIED SERVICES 6826 CELLULITIS 10-17-2011 [facility] AND ABSCESS [facility]OS[facility] OF LEG INC EXCEPT FOOT 8500 CONCUSSION 10-16-2011 [facility] WITH [place] [address] HEAD 10-16-2011 [place] INJURY, MEDICAL UNSPECIFIED IMAGING ASS 24007 NAUSEA WITH 08-14-2011 [place] VOMITING MEDICAL IM[facility]ING ASS 74177 ABDOMINAL 08-14-2011 [place] PAIN, MEDICAL UNSPECIFIED IMAGING ASS SITE 7048 OTHER 12-12-2007 LAST, SPECIFIED DON R DISEASE OF HAIR&HAIR FOLLICLES 49350 OTHER CHEST 12-12-2007 LAST, PAIN DON R [...] Procedure DOS Code Location Performer Comment RADEX 95776 [place] MARGARITO, UPPER GI 8 MEDICAL DEEPIKA W/WO IMAGING GLUCAGON/ ASSOCIATE DELAY S IMAGES W/KUB Encounters Encounter Start End Date Code Location Performer Type Date [facility] 7 [facility] [place] - 6 6 [facility] [place] - 6 6 [facility] [place] - 6 6 [facility] [place] - 5 5 [facility] [place] - 5 5 [facility] 5 5 [facility] 5 5 [facility] 5 5 [facility] 3 [facility] 3 [facility] 3 3 [facility] 3 [facility] 3 3 [facility] 3 3 [facility] 3 3 [facility] 3 3 [facility] 3 3 [facility] 2 2 [facility] 2 2 [facility] 2 2 [facility] 2 [facility] 2 2 [facility] 2 [facility] 2 [facility] 2 [facility] 2 [facility] 2 [facility] - 1 1 [facility] 1 [facility] OUT[facility] OFFICE [id number] SHALA LAST OUTPATIEN 8 8 DON R DON R T VISIT 15 MINUTES HOSPITAL [facility] - 8 8 [facility] OUTPATIEN [facility] T OFFICE 36076 SHALA LAST OUTPATIEN 8 8 DON Deepika Poe T VISIT 15 MINUTES
--- OUTSIDE RECORDS SUMMARY | 2017-09-21 17:47 | External Medical Summary Rpt | CCD ---
Author Author , ELISSA BOWERS Address Unknown Phone [email or web address] Immunization Name Date Rout CVX Reac Dose [...]
[2017-09-21] MEDS ORDERED: PREDNISONE 20MG20 MG PO (17:57)
[2017-09-21] MEDS ORDERED: ZITHROMAX Z-PA250 M2 PO (17:57)
--- NOTE | 2017-09-21 17:58 | Urgent Treatment Center Report ---
See Addendum History of Present Issue Date/Time Seen by Provider 09/21/17 1751 Visit Reason Pt arrived:Walked Presenting Problem:PT STATES COUGH, SOA AND CHEST CONGESTION X1 WEEK. PT STATES HE HAS TAKEN MULTIPLE OVER THE COUNTER MEDICATIONS WITH NO IMPROVEMENT Location if Accident: Onset of symptoms date/time:/ or onset unknown for:MEDICAL HX UNKNOWN Have you (or family members/close friends) recently traveled outside the [place]? N If Yes, where/when: Have you had exposure to infectious disease within the past month? TB? Other? Specify: Source patient, RN notes reviewed Exam Limitations no limitations Comment 26-year-old male presents for coughing, wheezing, and productive cough. ALLERGIES Coded Allergies: No Known Allergies (02/14/17) History Medical History General CAD? No Angina: Yes [place]: No Hypertension? No Hyperlipidemia? Yes CHF? No DVT? No PE? No COPD? No Asthma? No Anemia? No GERD? No Gastric ulcers? No GI Bleed? No Hernia? No Thyroid Problems? No Hypothyroidism? No CVA? No Seizures? No Diabetes? No Renal Insuffiency? No UTI? No Stones? No BPH? No GB Disease: No Nephritic Syndrome? No Asplenia? No Hepatitis? No Sickle Cell Disease? No Arthritis? No Migraines? Yes Cataracts? No Glaucoma? No MRSA? Yes HIV? No TB? No Anxiety? No Depression? No Cancer? No More? Yes Additional hx: MIGRAINES Immunization HX DT/Tetanus > 10 YRS Surgical Hx Previous Surgery?Y CYST ON RIGHT NIPPLE ABCESS AT UMBILICUS ANKLE,LEFT SURGERY Family History Family HX Hyperlipidemia Yes Social History Smoking Hx Smoker: Never Smoker Tobacco: No Alcohol Alcohol: Yes Review of Systems All Other Systems Reviewed and Negative Respiratory see HPI, cough, wheezing Physical Exam Vital Signs Vital Signs Date Time Temp Pulse Resp B/P Pulse O2 O2 Flow FiO2 Ox Delivery Rate 09/21 1744 98.2 89 20 141/88 96 - WBC >12,000 or <4,000 or 10% bands? 2 or more SIRS Criteria Met? B/P:141/88 MAP:105 Creatinine >2.0? UA output<0.5ml/kg/hr for 2 hrs? Platelet count >100,000? Lactate >2.0mmol/1? INR >1.2 or PTT > than 60 sec? Evidence of Organ Dysfunction? Provider documented clinical suspician of infection? Sepsis Criteria Count: 1 Sepsis Risk: General Appearance normal appearance, no apparent distress Ear, Nose, Throat hearing grossly normal, normal ENT inspection Respiratory Status Yes: trachea midline, chest symmetrical, non tender chest. No: respiratory distress. Lung Sounds posterior: rhonchi, wheezing. left: rhonchi, wheezing. right: wheezing. Cardiovascular normal exam, regular rate/rhythm Neurologic alert, normal exam, oriented x 3 Medical Decision Making LABS/Meds/Orders Pt receiving controlled substance in ED? No Departure Departure Time of Disposition 1753 Disposition DC Home or Self Care(routine) Clinical Impression Primary Impression: Bronchitis Condition STABLE Referrals Grace Figueroa APRN Patient Instructions Acute Bronchitis Additional Instructions Inhaler every 4 as needed Follow-up primary care this week If symptoms worsen or do not improve return or be seen in the ER Discharge Counseling Counseled pt/family regarding diagnosis, medications/RX, home care, follow up needs Prescriptions Current Visit Scripts Azithromycin (Zithromax) 250 MG PO DAILY #6 TAB USE DIRECTED. Prednisone (Prednisone 20MG) 20 MG PO BID #10 TAB at 1827
[2017-09-21 18:08] VITALS: BP 141/88
== END 2017-09-21 18:15 | disposition home or self-care (01) ==
LOC: UTC 17:36
DX: J20.9 Acute bronchitis, unspecified (principal)